=== PATIENT | female | born 1960 | race Caucasian/White ===

== ENCOUNTER → 2019-05-17 10:08 | Outpatient (CLI) | payer BC, SELFPAY ==
[2015-10-14 18:29] VITALS: BMI 25.9
[2019-05-17 10:49] LABS: Vitamin B12 398 pg/mL (211-911); Vitamin D,25 Hydroxy 29.6 ng/mL (29.95-100.01)
[2019-05-17 10:53] LABS: Ferritin 32 ng/mL (8-252); Iron 81 ug/dL (50-170); Iron Binding Capacity,Total 338 ug/dL (250-450)
== END ==
PROVIDERS: Family Provider Student in an Organized Health Care Education/Training Program; PCP Student in an Organized Health Care Education/Training Program; Referring Provider Dermatology; Visit Provider Dermatology
DX: L65.0 Telogen effluvium (principal)
CPT/HCPCS: 82306; 82607; 82728; 83540; 83550

== ENCOUNTER → 2020-04-03 14:23 | Outpatient (CLI) | payer BC, SELFPAY ==
--- NOTE | 2020-04-03 14:30 | VDLE_ITS ---
Reason For Study: pain RIGHT GSV is normal. CFV is compressible, spontaneous, phasic, competent and demonstrates normal augmentation. FV is compressible, spontaneous, phasic, competent and demonstrates normal augmentation. POP V is compressible, spontaneous, phasic, competent and demonstrates normal augmentation. T/P Trunk is compressible. PTV is compressible. RT PerV is compressible. Procedure Exam performed in department. The exam was abbreviated due to the COVID 19 protocol. The exam was diagnostic. A preliminary report was called and/or faxed to Dr. Baez. Interpretation Summary Deep veins of the right lower extremity are patent and compressible segmentally. There is no evidence of right lower extremity deep vein thrombosis. Valvular competence appears intact within the proximal deep venous system on the right . The right great saphenous vein appears patent and compressible segmentally. Ordering Physician: ANEUDY WHITEHEAD Referring Physician: Jj Baez Performed By: Néstor Vela RVT
== END ==
PROVIDERS: PCP Student in an Organized Health Care Education/Training Program
DX: M79.604 Pain in right leg (principal)
CPT/HCPCS: 93971

== ENCOUNTER → 2020-10-07 | Outpatient (CLI) | payer OTHER, SELFPAY ==
[2015-10-14 18:29] VITALS: BMI 25.9
--- NOTE | 2020-10-06 16:00 | FLU_PTH ---
PATIENT: ZIGGY JIMENEZ LOC: [facility] U#:[id number] AGE/SX: 60/F ROOM: RE10/07/[address]: Dr. Pamella Weeks MD : 1960 BED: DIS: 10/07/2020 SPEC #: [id number] RECD: 10/07/20 12:04 STATUS: MARK REMaliha #: [id number] NATALI: 10/06/20 16:[address]: Pamella Weeks DEPT: CYTOLOGY RECD BY: Vane Adrian ENTERED: 10/07/20 12:58 SP TYPE: Fluid OTHR DR: Dr. Jj Baez DO Tissues: A - Thyroid gland, NOS B - Thyroid gland, NOS Procedures: Special Stain Group II Surgery Specimen Level IV Cytospin Fluid HEADER OPERATION: Ultrasound-guided fine needle aspiration left thyroid PRE-OP DIAGNOSIS: Left thyroid nodule TISSUE SUBMITTED: A - Left thyroid slides x6, B - Left thyroid fluid for cytology DIAGNOSIS CYTOLOGY A. Left thyroid nodule, ultrasound-guided FNA (smears): Consistent with benign follicular/colloid nodule. Adequate for evaluation. See comment. B. Left thyroid nodule fluid, ultrasound-guided FNA (cytospin and cell block): Consistent with benign follicular/colloid nodule. SJ:wei 10/08/2020 COMMENT Correlation with clinical, clinical, radiologic findings and appropriate follow up are necessary. CYTOLOGY STUDY Slides are reviewed. CYTOLOGY GROSS A - Received are six smears labeled with the patient's name and designated per the requisition as left thyroid. Submitted for staining. B - Received is 30 ml of dark brown cloudy fluid labeled with the patient's name and and designated per the requisition as left thyroid. Submitted for cytology preparation including cell block. / wei 10/07/20 TC:5 CPT: 29689, 66072, 26628
== END | disposition home or self-care (01) ==
LOC: LABSPEC 12:54
PROVIDERS: PCP Student in an Organized Health Care Education/Training Program; Referring Provider Surgery; Visit Provider Surgery
DX: E04.1 Nontoxic single thyroid nodule (principal)
CPT/HCPCS: 88108; 88305; 88313

== ENCOUNTER 2021-06-15 03:50 | Emergency (ER) | payer OTHER, SELFPAY ==
[2021-06-15 03:51] VITALS: BP 136/81; PULSE 60; RESP 15; TEMP 36.4; O2SAT 99; BMI 23.1
--- NOTE | 2021-06-15 05:26 | RAD_ITS ---
STUDY: X-RAY - ACUTE ABDOMINAL SERIES REASON FOR EXAM: Female, 61 years old patient with abdominal pain TECHNIQUE: Single view of the chest. Supine, and erect view(s) of the abdomen were obtained. COMPARISON: Chest radiograph dated 10/14/2015. FINDINGS: Cardiac monitoring leads are present. The lungs are hyperexpanded. There is mild interstitial thickening present in both lungs. Normal size heart. Normal mediastinum and mariya. Normal visualized pulmonary arteries. There is atherosclerotic tortuosity of the aortic arch and descending thoracic aorta. There is a non-specific bowel gas pattern. There are surgical clips in the pelvis probably secondary to tubal ligation. Normal visualized osseous structures. RAD/Acute Abdomen Inc Chest IMPRESSION: 1. No radiographic evidence of acute intra-abdominal or cardiopulmonary disease disease. 2. COPD. Electronically Signed: Esha Cisneros MD at 6:35 EDT , Service support ,
--- NOTE | 2021-06-15 05:26 | EKG12_ITS ---
Test Reason : ABD PAIN Blood Pressure : / mmHG Vent. Rate : 068 BPM Atrial Rate : 068 BPM P-R Int : 122 ms QRS Dur : 066 ms QT Int : 404 ms P-R-T Axes : 036 004 -02 degrees QTc Int : 429 ms Normal sinus rhythm Nonspecific T wave abnormality Abnormal ECG Confirmed by ERIBERTO HERNADEZ, DIMAS ([id number]), wholesale account manager BEATRIZ MORENO ([id number]) on 06/17/2021 8:21:07 AM Referred By: RENETTA Confirmed By:DIMAS WEI MD
--- NOTE | 2021-06-15 05:28 | EDS_ITS ---
HPI HPI - GI History of Present Illness Chief Complaint: Abd Pain Informant: patient Abdominal Pain/Flank Pain Onset: Today Context: Gradual Onset Timing: Intermittent Quality: - (Squeezing) Location: Epigastric, RUQ and LUQ Worsened by: Nothing Relieved by: Nothing Nausea/Vomiting/Emesis GI Symptom: Negative for Nausea and Vomiting Diarrhea/Melena/Hematochezia GI Symptom: Negative for Diarrhea, Melena and Hematochezia Associated Symptoms Associated Symptoms: Negative for Dysuria and Frequency Narrative Narrative: Patient presents with upper abdominal pain and lower chest pain that began today. Patient states it has been intermittent over the past few hours. Patient states it came on gradually. Patient describes it as a squeezing over her upper abdomen and lower chest. Patient states nothing makes it better and n othing makes it worse. Patient denies any shortness of breath or cough. Patient denies any nausea or vomiting. Patient denies any diarrhea, melena, or hematochezia. Patient denies any urinary complaints. PFSH PFSH Home Medications levothyroxine 25 mcg PO DAILY 10/14/15 [History Last Taken Unknown] Allergy/AdvReac Type Severity Reaction Status Date / Time No Known Allergies Allergy Verified 06/15/21 03:53 Social History Smoking Status: Never smoker ROS ROS ED Constitutional Constitutional ED: Denies chills or fever(s) Eyes Eyes: Denies blurry vision or change in vision ENT ENT ED: Denies rhinorrhea or sore throat Cardiovascular Cardiovascular: Reports chest pain; Denies palpitations Respiratory/Chest Respiratory/Chest: Denies cough or dyspnea Gastrointestinal Gastrointestinal: Reports abdominal pain; Denies nausea or vomiting Genitourinary Genitourinary ED: Denies dysuria or hematuria Musculoskeletal Musculoskeletal: Reports back pain; Denies neck pain Integumentary Denies abscess or rash Neurologic Neurologic: Reports headache(s); Denies weakness Allergic/Immunologic Allergic/Immunologic ED: Denies mouth swelling or urticaria EXAM Physical Exam Const Vital Signs: 06/15/21 03:51 06/15/21 06:50 Temperature 97.6 F L Temperature Source Oral Pulse Rate 60 66 Respiratory Rate 15 13 Blood Pressure 136/81 H 138/74 H Blood Pressure Mean 99 95 Pulse Ox 99 97 Oxygen Delivery Method Room Air Room Air Positive well nourished and well developed General Appearance ED: well developed HEENT Reports moist mucous membranes Neck supple and no JVD Resp normal respiratory effort and clear to auscultation bilaterally Cardio regular rate, regular rhythm and no murmurs GI normal to inspection, nondistended, normoactive bowel sounds Palpation: soft and tender epigastric and RUQ; Negative for guarding or rebound tenderness present Extremity normal to inspection General Extremety ED: Negative for edema or tenderness General Extremity: Negative for edema Neuro oriented x3, CN's II-XII intact bilaterally and no sensory deficits noted Sensorium / Orientation: alert Motor Exam: strength 5/5 throughout Psych mental status grossly normal Skin no rashes or lesions noted MDM MDM MDM Narrative Medical decision making narrative: Patient was given IV fluids. EKG was obtained. On my interpretation, it showed a normal sinus rhythm with a rate of sixty-eight. MN interval, QRS interval, and QTc intervals were all normal. [place] was normal. There are nonspecific ST-T wave changes. CBC was within normal limits. Comprehensive metabolic profile was normal. Lipase was normal. Urinalysis does not show any evidence of urinary tract infection. Acute abdominal x-rays were obtained. There are three views. On my interpretation, there is no acute intra-abdominal process. There is no acute cardiopulmonary process. Radiologist also interpreted the x-rays and agrees. High-sensitivity troponin was obtained and was normal. Patient was advised of her findings. Patient was instructed to follow-up with her primary care physician for further evaluation in 3 to 5 days. Patient was instructed return if worse in any way. Patient understood and was agreeable with the plan. All questions were answered. Lab Data Attestation: I reviewed the patient's lab results. Labs: Laboratory Results - last 24 hr 06/15/21 06/15/21 06/15/21 05:30 05:35 05:35 WBC 8.9 RBC 4.65 Hgb 13.2 Hct 39.9 MCV 85.8 MCH 28.4 MCHC 33.1 RDW Std Deviation 42.1 RDW Coeff of Joana 13.4 Plt Count 139 L MPV 9.2 Immature Gran % (Auto) 0.300 Neut % (Auto) 72.0 H Lymph % (Auto) 18.6 L [place] % (Auto) 7.1 Eos % (Auto) 1.5 Baso % (Auto) 0.5 Absolute Neuts (auto) 6.4 Absolute Lymphs (auto) 1.65 Nucleated RBC % 0 Sodium 139 Potassium 3.5 Chloride 105 Carbon Dioxide 26.0 Anion Gap 8 BUN 11 Creatinine 0.88 Estim Creat Clear Calc 51.75 Est GFR (MDRD) Af Amer 84 Est GFR (MDRD) Non-Af 69 BUN/Creatinine Ratio 12.5 Glucose 92 Calcium 9.6 Total Bilirubin 0.80 AST 43 H ALT 29 Alkaline Phosphatase 78 Troponin I High Sens 5 Total Protein 7.1 Albumin 3.4 Globulin 3.7 Albumin/Globulin Ratio 0.9 Lipase 392 Urine Color Yellow Urine Clarity Clear Urine pH 8.0 Ur Specific [place] 1.015 Urine Protein Negative Urine Glucose (UA) Normal Urine Ketones Negative Urine Occult Blood Negative Urine Nitrite Negative Urine Bilirubin Negative Urine Urobilinogen Normal Ur Leukocyte Esterase 25 H Urine RBC 0 SEEN Urine WBC 0-5 SEEN Ur Squamous Epith Cells 0 SEEN Amorphous Sediment 2+ Urine Bacteria 1+ Urine Mucus 0 SEEN Radiography Diagnostic Testing: Clinical Impression(s) from Imaging Studies Acute Abdomen Series 06/15/21 05:26 IMPRESSION: 1. No radiographic evidence of acute intra-abdominal or cardiopulmonary disease disease. 2. COPD. Electronically Signed: Esha Cisneros MD at 6:35 EDT , Service support , EKG Initial EKG: Attestation: I personally reviewed and interpreted this EKG as follows: Interpretation: Sinus Rhythm (68) and Non-Specific ST Changes Prior EKG tracings: available for review Prior: Unchanged (10/14/2015) Discharge Plan Triage Chief Complaint: Abd Pain ED Provider: Wes Larsen Dx/Rx/DC Orders Clinical Impression: Epigastric abdominal pain Instructions: ED Abdominal Pain Unkn Cause Male... Prescriptions: No Action levothyroxine 25 MCG tablet 25 mcg PO DAILY RF: 0 Primary Care Provider: Jj Baez Referrals: Jj Baez DO [Primary Care Provider] - 3-5 Days Disposition Disposition: Home, Self Care
[2021-06-15 05:37] LABS: Mucous, Urine 0 SEEN /hpf (<or=2+); Red Blood Cells-Urine 0 SEEN /hpf (0-5); Squamous Epithelial Cells - UA 0 SEEN /hpf (5-10)
[2021-06-15 05:38] LABS: Color, Urine Yellow (Yellow); Glucose, Dipstick Normal (Normal); Ketone-Dipstick Negative (Negative); Leukocyte Esterase-Dipstick 25 /ul (Negative); Nitrite-Dipstick Negative (Negative); Occult Blood-Urine Negative /ul (Negative); Protein-Dipstick Negative (Negative); Specific Gravity, Urine 1.015 (1.002-1.030); Urine Bilirubin Dipstick Negative (Negative); Urine Clarity Clear (Clear); Urine Urobilinogen Normal (Normal)
[2021-06-15] MEDS: 0.9% Normal Saline 1,000 ML 1000 ML IV (05:41)
[2021-06-15 05:49] LABS: Absolute Lymphocyte Count 1.65 X10^3/uL (0.83-4.51); Absolute Neutrophil Count 6.4 X10^3/uL (2.0-7.7); Basophil# 0.04 X10^3/uL; Basophil% 0.5 % (0-1); Eosinophil# 0.13 X10^3/uL; Eosinophils% 1.5 % (0-5); Hematocrit 39.9 % (37-47); Hemoglobin 13.2 g/dL (12.0-15.0); Lymphocyte # 1.65 X10^3/ul (0.83-4.51); Lymphocyte % 18.6 % (19-41); Mean Corp Hgb Conc 33.1 g/dL (32-36); Mean Corpuscular Hgb 28.4 pg (27.0-32.0); Mean Corpuscular Volume 85.8 fL (81-99); Mean Platelet Vol. 9.2 fl (6.2-12.0); Monocyte# 0.63 X10^3/uL; Monocyte% 7.1 % (0-10); NRBC Flagged by Analyzer 0 % (0-5); Neutrophil # 6.39 X10^3/uL (2.7-7.7); Platelet Count 139 K/mm3 (150-450); RBC Distribution Width CV 13.4 % (11.6-14.6); RBC Distribution Width SD 42.1 fl (35.1-43.9); Red Blood Count 4.65 M/mm3 (4.2-5.4); White Blood Count 8.9 K/mm3 (4.4-11.0)
[2021-06-15 06:05] LABS: ALB/GLOB Ratio 0.9 RATIO (0.9-2.4); AST(SGOT) 43 U/L (15-37); Alanine Aminotransfer ALT/SGPT 29 U/L (13-56); Albumin, Serum 3.4 g/dL (3.2-5.0); Alkaline Phosphatase 78 U/L (45-117); BUN 11 mg/dL (7-18); BUN/Creat Ratio 12.5 RATIO (10-20); Calcium,Total 9.6 mg/dL (8.5-10.1); Chloride 105 mmol/L (98-107); Creatinine, Serum 0.88 mg/dL (0.55-1.02); EST Glomerular Filtration Rate 69 mL/min (>60); Est Glom Filt Rate - Afr Amer 84 mL/min (>60); Estimated Creatinine Clearance 51.75 ml/min; Globulin 3.7 g/dL (2.2-4.2); Glucose 92 mg/dL (74-106); Lipase 392 U/L (73-393); Potassium 3.5 mmol/L (3.5-5.1); Protein, Total 7.1 g/dL (6.4-8.2); Sodium Level 139 mmol/L (136-145); Troponin-I HS 5 pg/mL (3.0-54.0)
[2021-06-15 06:06] LABS: Anion Gap 8 (5-15)
[2021-06-15 06:50] VITALS: BP 138/74; PULSE 66; RESP 13; O2SAT 97
[2021-06-15 06:57] LABS: Amorphous Sediment 2+; Bacteria 1+ /hpf (None Seen); White Blood Cells 0-5 SEEN /hpf (0-5)
[2021-06-15 08:08] VITALS: PULSE 77; RESP 16; O2SAT 98
== END 2021-06-15 08:09 | disposition home or self-care (01) ==
PROVIDERS: Emergency Provider Emergency Medicine; PCP Student in an Organized Health Care Education/Training Program
DX: R10.13 Epigastric pain (principal); J44.9 Chronic obstructive pulmonary disease, unspecified
CPT/HCPCS: 74022; 80053; 81001; 83690; 84484; 85025; 93005; 96360; 99285; J7030; A4216

== ENCOUNTER 2022-08-18 06:59 | Emergency (ER) | payer BC, SELFPAY ==
[2022-08-18] VITALS (8 sets, daily range): BP systolic 93–133; BP diastolic 70–79; PULSE 57–72; RESP 13–16; TEMP 35.8; O2SAT 96–100; BMI 20.7
--- NOTE | 2022-08-18 07:07 | EKG12_ITS ---
Test Reason : CHEST PAIN Blood Pressure : / mmHG Vent. Rate : 061 BPM Atrial Rate : 061 BPM P-R Int : 114 ms QRS Dur : 068 ms QT Int : 434 ms P-R-T Axes : 032 000 001 degrees QTc Int : 436 ms Normal sinus rhythm Septal infarct , age undetermined Abnormal ECG Confirmed by DENNIS HERNADEZ, MIRTA ([id number]), primer expeditor and drier BEATRIZ MORENO ([id number]) on 08/20/2022 6:24:25 AM Referred By: RENETTA Confirmed By:RANDELL COLLINS MD
--- NOTE | 2022-08-18 07:17 | EDS_ITS ---
HPI History of Present Illness Chief Complaint: Chest Pain Informant: patient and EMS Onset/Context/Timing Onset: Today (JPTA) Timing: Intermittent (once) and Lasts (30-40 min) Quality: Positive for Tightness Location: Substernal (and jaw) Current Severity: Gone Maximum Severity: Severe Worsened By: Nothing Relieved By: Nothing (did take ASA 162mg prior to end of episode) Associated Symptoms: Positive for Diaphoresis, Dyspnea and Lightheadedness; Negative for Nausea, Vomiting, Cough, Fever, Acid Reflux or Palpitations Narrative Narrative: About 1.5 hours prior to evaluation here in the department, patient was already awake at around 5:30 AM and had quick onset of tightness in her chest followed by tightness in her jaw, sweating, lightheaded, she felt short of breath she thinks because she was feeling very anxious about feeling so poorly although the dyspnea and lightheadedness were very short-lived, she was very concerned that she might be having a heart attack and called EMS. She took 2 baby aspirin, EMS arrived and her discomfort/symptoms were all resolved and they gave her another 162 mg aspirin and transported her here. She is never had this before. She has no known history of heart disease, she had a stress test 10 or 20 years ago for reasons that she cannot remember that was unremarkable, and she has a routine stress test scheduled in about 3-4 months from now with her PCP. CVD Risk Factors: Positive for Hypertension; Negative for Diabetes, Hypercholesterolemia, Family History 1' </=55 or Smoking PE Risk Factors: Negative for Recent Travel/Surgery, Recent Immobilization, Prior DVT or PE, Cancer or OCP + Smoking + >/=35 PFSH [facility] Medical History (Updated 08/18/22 @ 12:[address] Matt Rider MD) Essential hypertension History of cholelithiasis Hypothyroidism Home Medications levothyroxine 25 mcg tablet 25 mcg PO DAILY 10/14/15 [History Last Taken Unknown] Allergy/AdvReac Type Severity Reaction Status Date / Time No Known Allergies Allergy Verified 08/18/22 07:00 Social History Smoking Status: Never smoker ROS ROS ED Constitutional Constitutional ED: Reports sweats; Denies chills or fever(s) Eyes Eyes: Denies change in vision or diplopia ENT ENT ED: Denies rhinorrhea or sore throat Cardiovascular Cardiovascular: Reports chest pain, lightheadedness and radiating jaw, neck or arm pain; Denies palpitations or racing heartbeat Respiratory/Chest Respiratory/Chest: Reports dyspnea; Denies cough Gastrointestinal Gastrointestinal: Denies abdominal pain, diarrhea, nausea or vomiting Genitourinary Genitourinary ED: Denies dysuria or hematuria Musculoskeletal Musculoskeletal: Denies back pain or neck pain Integumentary Denies abscess or rash Neurologic Neurologic: Denies headache(s), paresthesias or weakness Psychiatric Psychiatric: Denies anxiety or suicidal thoughts EXAM Physical Exam Const Vital Signs: 08/18/22 07:00 08/18/22 07:04 08/18/22 07:44 Temperature 96.5 F L Temperature Source Temporal Pulse Rate 61 Respiratory Rate 15 Respiratory Pattern Normal Blood Pressure 133/78 H Blood Pressure Mean 96 Pulse Ox 98 Oxygen Delivery Method Room Air Room Air 08/18/22 08:52 08/18/22 08:00 08/18/22 08:45 Temperature Temperature Source Pulse Rate 57 L 60 57 L Respiratory Rate 16 16 Respiratory Pattern Blood Pressure 110/73 117/79 110/73 Blood Pressure Mean 91 85 Pulse Ox 99 98 Oxygen Delivery Method Room Air Room Air 08/18/22 09:12 08/18/22 09:27 08/18/22 11:00 Temperature Temperature Source Pulse Rate 66 59 L 72 Respiratory Rate 13 16 Respiratory Pattern Blood Pressure 98/73 107/72 101/70 Blood Pressure Mean 81 80 Pulse Ox 100 97 Oxygen Delivery Method Room Air Room Air Positive well nourished and well developed Constitutional Narrative: Well-appearring, conversive in full sentences General Appearance ED: well developed and NAD HEENT Reports moist mucous membranes normocephalic and atraumatic Eyes PERRL and EOMs intact bilaterally Neck full ROM and supple Resp normal respiratory effort and clear to auscultation bilaterally Cardio regular rate, regular rhythm and no murmurs Rate: Negative for tachycardic GI non-tender and non-distended Auscultation: normoactive bowel sounds Palpation: soft Back/Spine no CVA tenderness General Back: other FROM Extremity normal to inspection General Extremety ED: Negative for edema, pulses abnormal or tenderness General Extremity: Negative for edema or pulses abnormal Neuro oriented x3, CN's II-XII intact bilaterally and no sensory deficits noted Sensorium / Orientation: awake and alert Motor Exam: strength 5/5 throughout Skin no rashes or lesions noted and no wounds Heart Score History: Highly Suspicious ECG: Nonspecific Repolarization Age: >45 - <65 years Risk Factors: 1 or 2 Risk Factors Troponin: </= Normal Limit Score: 5 MDM MDM MDM Narrative Medical decision making narrative: Patient asymptomatic and has a normal EKG, her work-up is negative except for a slightly low potassium which could be to acute anxiety episode associated with the symptoms. No recent GI symptoms to suggest GI or renal losses. Her initial troponin is 7. While waiting for the second 1 she had a repeat episode of chest tightness and her EKG was repeated. It is unchanged. Her second troponin came back at 6. I discussed all this with Dr. De La Cruz with cardiology, he agrees with her heart score of 5 but negative troponin that this is not a euhrh-epj-yoriv case, and would support either admitting her for stress test or repeating her enzymes and if negative or going down, sending her home to continue following up with an outpatient stress. Therefore we did the third troponin, it returned at a level of 6 as well. The patient is feeling well. She is comfortable going home with the aforementioned plan. Lab Data Attestation: I reviewed the patient's lab results. Labs: Laboratory Results - last 24 hr 08/18/22 08/18/22 08/18/22 07:30 07:30 09:42 WBC 5.8 RBC 4.87 Hgb 13.7 Hct 42.8 MCV 87.9 MCH 28.1 MCHC 32.0 RDW Std Deviation 43.8 RDW Coeff of Joana 13.6 Plt Count 147 L MPV 9.6 Immature Gran % (Auto) 0.200 Neut % (Auto) 36.7 L Lymph % (Auto) 51.4 H [place] % (Auto) 7.2 Eos % (Auto) 3.6 Baso % (Auto) 0.9 Absolute Neuts (auto) 2.2 Absolute Lymphs (auto) 3.00 Nucleated RBC % 0 Sodium 141 Potassium 3.3 L Chloride 106 Carbon Dioxide 28.0 Anion Gap 7 BUN 14 Creatinine 0.90 Estim Creat Clear Calc 47.65 Est GFR (MDRD) Af Amer 81 Est GFR (MDRD) Non-Af 67 BUN/Creatinine Ratio 15.6 Glucose 100 Calcium 9.7 Troponin I High Sens 7 6 08/18/22 11:35 WBC RBC Hgb Hct MCV MCH MCHC RDW Std Deviation RDW Coeff of Joana Plt Count MPV Immature Gran % (Auto) Neut % (Auto) Lymph % (Auto) [place] % (Auto) Eos % (Auto) Baso % (Auto) Absolute Neuts (auto) Absolute Lymphs (auto) Nucleated RBC % Sodium Potassium Chloride Carbon Dioxide Anion Gap BUN Creatinine Estim Creat Clear Calc Est GFR (MDRD) Af Amer Est GFR (MDRD) Non-Af BUN/Creatinine Ratio Glucose Calcium Troponin I High Sens 6 Radiography Chest X-Ray - ED: 2 View, Read by ED Physician, Normal and No Acute Disease Diagnostic Testing: Clinical Impression(s) from Imaging Studies Chest X-Ray 08/18/22 07:49 IMPRESSION: Hyperinflation suggesting emphysema. Electronically Signed: Teddy Monterroso MD at 8:07 EST Reading Location ID and State: [address] [place] [id number] Tel , Service support , Rhythm Strip Rhythm Strip: Sinus Rhythm Rate: 60 Ectopy: None EKG Initial EKG: Attestation: I personally reviewed and interpreted this EKG as follows: Interpretation: Sinus Rhythm, No Acute Injury Pattern and Inverted T-Waves (inf and high lat) Comments: Q waves V1-2 Prior EKG tracings: available for review Prior: Unchanged Follow-up EKG: Attestation: I personally reviewed and interpreted this EKG as follows: Interpretation: Sinus Rhythm and No Acute Injury Pattern Prior: Unchanged Discharge Plan Triage Chief Complaint: Chest Pain ED Provider: Matt Rider Dx/Rx/DC Orders Clinical Impression: Chest pain Instructions: ED Chest Pain, Uncertain Cause Prescriptions: No Action levothyroxine 25 MCG tablet 25 mcg PO DAILY Primary Care Provider: Jj Baez Referrals: Jj Baez, [Primary Care Provider] - As soon as possible (Offer follow- up and/or to see if you can have your stress test moved up sooner) Disposition Disposition: Home, Self Care
[2022-08-18 07:45] LABS: Absolute Neutrophil Count 2.2 X10^3/uL (2.0-7.7); Basophil# 0.05 X10^3/uL; Basophil% 0.9 % (0-1); Eosinophil# 0.21 X10^3/uL; Eosinophils% 3.6 % (0-5); Hematocrit 42.8 % (37-47); Hemoglobin 13.7 g/dL (12.0-15.0); Lymphocyte % 51.4 % (19-41); Mean Corpuscular Hgb 28.1 pg (27.0-32.0); Mean Corpuscular Volume 87.9 fL (81-99); Mean Platelet Vol. 9.6 fl (6.2-12.0); Monocyte# 0.42 X10^3/uL; Monocyte% 7.2 % (0-10); NRBC Flagged by Analyzer 0 % (0-5); Neutrophil # 2.15 X10^3/uL (2.7-7.7); Neutrophil % 36.7 % (47-70); Platelet Count 147 K/mm3 (150-450); RBC Distribution Width CV 13.6 % (11.6-14.6); RBC Distribution Width SD 43.8 fl (35.1-43.9); Red Blood Count 4.87 M/mm3 (4.2-5.4); White Blood Count 5.8 K/mm3 (4.4-11.0)
--- NOTE | 2022-08-18 07:49 | RAD_ITS ---
EXAM: XR CHEST, 1 VIEW CLINICAL INDICATION: chest pain TECHNIQUE: Frontal view of the chest. This report was created using [employer] report generation technology. COMPARISON: XR Chest dated 06/15/2021 FINDINGS: LUNGS AND PLEURAL SPACES: Hyperinflation suggesting emphysema. No pneumothorax. No effusion. HEART: Normal heart size. MEDIASTINUM: No mediastinal or hilar mass. BONES/JOINTS: No acute abnormality. SOFT TISSUES: Normal. RAD/Chest 1 View (Portable) IMPRESSION: Hyperinflation suggesting emphysema. Electronically Signed: Teddy Monterroso MD at 8:07 EST ,
[2022-08-18 07:56] LABS: Anion Gap 7 (5-15); BUN 14 mg/dL (7-18); BUN/Creat Ratio 15.6 RATIO (10-20); Calcium,Total 9.7 mg/dL (8.5-10.1); Chloride 106 mmol/L (98-107); EST Glomerular Filtration Rate 67 mL/min (>60); Est Glom Filt Rate - Afr Amer 81 mL/min (>60); Estimated Creatinine Clearance 47.65 ml/min; Glucose 100 mg/dL (74-106); Potassium 3.3 mmol/L (3.5-5.1); Sodium Level 141 mmol/L (136-145); Troponin-I HS (w/2H Reflex) 7 pg/mL (3.0-54.0)
--- NOTE | 2022-08-18 08:39 | EKG12_ITS ---
Test Reason : CHEST PAIN REPEAT Blood Pressure : / mmHG Vent. Rate : 056 BPM Atrial Rate : 056 BPM P-R Int : 116 ms QRS Dur : 066 ms QT Int : 414 ms P-R-T Axes : 041 -06 -09 degrees QTc Int : 399 ms Sinus bradycardia Septal infarct , age undetermined Abnormal ECG Confirmed by DENNIS HERNADEZ, MIRTA ([id number]), legal editor BEATRIZ MORENO ([id number]) on 08/20/2022 6:24:39 AM Referred By: SAMUEL Confirmed By:RANDELL COLLINS MD
[2022-08-18] MEDS: Nitroglycerin SL (ED/IMG/CATH) 0.4 MG TABLET SL (08:52)
[2022-08-18] MEDS: Nitroglycerin Oint 1 INCH PACKET TD (09:27)
[2022-08-18 09:35] LABS: Reflex Troponin-HS? (from REC) Y
[2022-08-18 10:08] LABS: Troponin-I HS 6 pg/mL (3.0-54.0)
[2022-08-18 11:58] LABS: Troponin-I HS 6 pg/mL (3.0-54.0)
== END 2022-08-18 12:29 | disposition home or self-care (01) ==
PROVIDERS: Emergency Provider Emergency Medicine; PCP Student in an Organized Health Care Education/Training Program; Visit Provider Emergency Medicine
DX: R07.9 Chest pain, unspecified (principal); I10 Essential (primary) hypertension; R06.00 Dyspnea, unspecified
CPT/HCPCS: 36415; 71045; 80048; 84484; 85025; 93005; 99285; A4216

== ENCOUNTER 2022-10-29 11:01 | Emergency (ER) | payer BC, SELFPAY ==
[2022-10-29 11:02] VITALS: BP 140/89; PULSE 70; RESP 14; TEMP 36.1; O2SAT 100; BMI 21.2
--- NOTE | 2022-10-29 11:28 | VDLE_ITS ---
Reason For Study: LEG SWELLING RIGHT LEFT GSV is normal. GSV is normal. CFV is compressible, spontaneous, phasic, CFV is compressible, spontaneous, phasic, competent and demonstrates normal competent, and demonstrates normal augmentation. augmentation. FV is compressible, spontaneous, phasic, FV is compressible, spontaneous, phasic, competent and demonstrates normal competent and demonstrates normal augmentation. augmentation. POP V is compressible, spontaneous, phasic, POP V is compressible, spontaneous, phasic, competent and demonstrates normal competent and demonstrates normal augmentation. augmentation. T/P Trunk is compressible. T/P Trunk is compressible. PTV is compressible. PTV is compressible. RT PerV is compressible. LT PerV is compressible. Procedure This is a venous duplex using B-mode, color flow and spectral Doppler. Exam performed portable in ED. The exam was diagnostic. A preliminary report was called and/or faxed to ED YOSELIN Borja. VL/Venous Duplex US - Td Extrem Interpretation Summary No evidence for acute deep venous thrombosis bilateral lower extremities with p atent and compressible bilateral great saphenous veins. Ordering Physician: Azeb Grider Referring Physician: Jj Baez Performed By: Bairon Bullard RVT
--- NOTE | 2022-10-29 11:28 | EKG12_ITS ---
Test Reason : LEG PAIN Blood Pressure : / mmHG Vent. Rate : 062 BPM Atrial Rate : 062 BPM P-R Int : 116 ms QRS Dur : 064 ms QT Int : 410 ms P-R-T Axes : 075 002 070 degrees QTc Int : 416 ms Likely Normal sinus rhythm -Significant baseline artifact Septal infarct , age undetermined Abnormal ECG Confirmed by DENNIS HERNADEZ, MIRTA ([id number]), brands editor BEATRIZ MORENO ([id number]) on 11/01/2022 12:24:25 P M Referred By: TOMÁS Confirmed By:RANDELL COLLINS MD
--- NOTE | 2022-10-29 11:29 | EDS_ITS ---
HPI History of Present Illness Chief Complaint: Lower Extremity Injury Detail of Chief Complaint: Bilateral leg swelling Informant: patient Onset/Context/Timing Onset: Days Context: Gradual Onset Current Severity: Mild Maximum Severity: Moderate Narrative Narrative: Patient presents secondary to swelling in both legs for the past 2 weeks. Today she noted pain in her left leg. Due to concern for blood clot she presents to the emergency room. Patient is been having intermittent chest pain for the past couple of months. She was seen in the emergency room in August with no elevation in her troponins. She recently underwent an echocardiogram where she was found to have mitral valve prolapse. She had a CT scan of her chest earlier this week without contrast that was largely unremarkable. [facility] Medical History Essential hypertension History of cholelithiasis Hypothyroidism MVP (mitral valve prolapse) Home Medications levothyroxine 25 mcg tablet 25 mcg PO DAILY 10/14/15 [History Last Taken Unknown] Allergy/AdvReac Type Severity Reaction Status Date / Time No Known Allergies Allergy Verified 10/29/22 11:02 Social History Smoking Status: Never smoker ROS ROS ED Constitutional Constitutional ED: Denies chills or fever(s) Eyes Eyes: Denies change in vision or discharge from eye(s) ENT ENT ED: Denies discharge from eye(s), rhinorrhea or sore throat Cardiovascular Cardiovascular: Reports chest pain; Denies palpitations Respiratory/Chest Respiratory/Chest: Reports dyspnea; Denies cough Gastrointestinal Gastrointestinal: Denies abdominal pain, diarrhea, nausea or vomiting Genitourinary Genitourinary ED: Denies dysuria Musculoskeletal Musculoskeletal: Reports extremity pain; Denies back pain Integumentary Denies Abrasions or rash Neurologic Neurologic: Denies headache(s) or weakness Allergic/Immunologic Allergic/Immunologic ED: Denies lip swelling or urticaria EXAM Physical Exam Const Vital Signs: 10/29/22 11:02 Temperature 97 F L Temperature Source Temporal Pulse Rate 70 Respiratory Rate 14 Blood Pressure 140/89 H Blood Pressure Mean 106 Pulse Ox 100 Oxygen Delivery Method Room Air Positive well nourished and well developed General Appearance ED: well developed HEENT Reports normocephalic and head/scalp atraumatic Eyes PERRL and EOMs intact bilaterally Neck supple Chest Wall inspection of chest normal and palpation of chest normal Resp normal respiratory effort and clear to auscultation bilaterally Cardio regular rate and regular rhythm GI normal to inspection, nondistended, normoactive bowel sounds Palpation: soft Extremity Extremity Narrative: 1-2+ bilateral lower extremity edema, symmetric. Mild area of tenderness along the proximal medial left leg. No erythema or overlying skin changes. Strong distal pulses are noted. Neuro oriented x3 and no sensory deficits noted Sensorium / Orientation: alert Motor Exam: strength 5/5 throughout Psych mental status grossly normal Skin no rashes or lesions noted MDM MDM MDM Narrative Medical decision making narrative: Patient placed on pvc monitor. Labwork obtained to evaluate for leukocytosis, anemia, and electrolyte derangement. Troponin obtained to evaluate for cardiac ischemia. D-dimer obtained to evaluate for possible blood clot. I reviewed the patient's noncontrast chest CT from 3 days ago. I do not feel she needs a repeat chest x-ray at this time. Venous ultrasound of the lower extremities obtained. Lab Data Attestation: I reviewed the patient's lab results. Labs: Laboratory Results - last 24 hr 10/29/22 10/29/22 10/29/22 12:05 12:05 12:05 WBC 5.6 RBC 4.99 Hgb 13.9 Hct 43.2 MCV 86.6 MCH 27.9 MCHC 32.2 RDW Std Deviation 42.2 RDW Coeff of Joana 13.3 Plt Count 162 MPV 9.5 Immature Gran % (Auto) 0.200 Neut % (Auto) 58.3 Lymph % (Auto) 32.0 [place] % (Auto) 6.5 Eos % (Auto) 2.5 Baso % (Auto) 0.5 Absolute Neuts (auto) 3.2 Absolute Lymphs (auto) 1.78 Nucleated RBC % 0 D-Dimer Quant (PE/DVT) 0.41 Sodium 139 Potassium 3.8 Chloride 101 Carbon Dioxide 30.0 Anion Gap 8 BUN 20 H Creatinine 0.86 Estim Creat Clear Calc 52.27 Est GFR (MDRD) Af Amer 85 Est GFR (MDRD) Non-Af 70 BUN/Creatinine Ratio 23.1 H Glucose 103 Calcium 9.4 Troponin I High Sens 4 Radiography Diagnostic Testing: Clinical Impression(s) from Imaging Studies Venous Doppler Study 10/29/22 11:28 Interpretation Summary No evidence for acute deep venous thrombosis bilateral lower extremities with patent and compressible bilateral great saphenous veins. Ordering Physician: Azeb Grider Referring Physician: Jj Baez Performed By: Bairon Bullard RVT Initial EKG: Attestation: I personally reviewed and interpreted this EKG as follows: Interpretation: Sinus Rhythm (Sinus at 62 with baseline artifact. No acute ST change.) Differential Diagnosis Chest pain/SOB: pulmonary embolism Reason(s) PE less likely: Positive for D- Dimer negative, not tachycardic and not hypoxic and ACS ACS: Positive for no evidence of ACS based on cardiac biomarkers and EKG without ischemia Treatment and Re-Evaluation :: Venous ultrasound of the lower extremities revealed no evidence of DVT. EKG reveals no acute ischemia. Lab work unremarkable including normal D-dimer and troponin. Patient reassured with these results. We discussed appropriate leg elevation to help control her swelling. She already has follow-up scheduled with her doctor. Discharge Plan Triage Chief Complaint: Lower Extremity Injury ED Provider: Azeb Grider Dx/Rx/DC Orders Clinical Impression: Edema, Chest pain Instructions: ED Chest Pain, Noncardiac, ED Peripheral Edema, Bilateral Prescriptions: No Action levothyroxine 25 MCG tablet 25 mcg PO DAILY Primary Care Provider: Jj Baez Referrals: Jj Baez DO [Primary Care Provider] - 1-2 Weeks Disposition Disposition: Home, Self Care
[2022-10-29 12:11] LABS: Absolute Lymphocyte Count 1.78 X10^3/uL (0.83-4.51); Absolute Neutrophil Count 3.2 X10^3/uL (2.0-7.7); Basophil# 0.03 X10^3/uL; Basophil% 0.5 % (0-1); Eosinophil# 0.14 X10^3/uL; Eosinophils% 2.5 % (0-5); Hematocrit 43.2 % (37-47); Hemoglobin 13.9 g/dL (12.0-15.0); Lymphocyte # 1.78 X10^3/ul (0.83-4.51); Mean Corp Hgb Conc 32.2 g/dL (32-36); Mean Corpuscular Hgb 27.9 pg (27.0-32.0); Mean Corpuscular Volume 86.6 fL (81-99); Mean Platelet Vol. 9.5 fl (6.2-12.0); Monocyte# 0.36 X10^3/uL; Monocyte% 6.5 % (0-10); NRBC Flagged by Analyzer 0 % (0-5); Neutrophil # 3.24 X10^3/uL (2.7-7.7); Neutrophil % 58.3 % (47-70); Platelet Count 162 K/mm3 (150-450); RBC Distribution Width CV 13.3 % (11.6-14.6); RBC Distribution Width SD 42.2 fl (35.1-43.9); Red Blood Count 4.99 M/mm3 (4.2-5.4); White Blood Count 5.6 K/mm3 (4.4-11.0)
[2022-10-29 12:22] LABS: D-Dimer Quantitative (DVT/PE) 0.41 FEU/ug/m (0.27-0.49)
[2022-10-29 12:30] LABS: Anion Gap 8 (5-15); BUN 20 mg/dL (7-18); BUN/Creat Ratio 23.1 RATIO (10-20); Calcium,Total 9.4 mg/dL (8.5-10.1); Chloride 101 mmol/L (98-107); Creatinine, Serum 0.86 mg/dL (0.55-1.02); EST Glomerular Filtration Rate 70 mL/min (>60); Est Glom Filt Rate - Afr Amer 85 mL/min (>60); Estimated Creatinine Clearance 52.27 ml/min; Glucose 103 mg/dL (74-106); Potassium 3.8 mmol/L (3.5-5.1); Sodium Level 139 mmol/L (136-145); Troponin-I HS 4 pg/mL (3.0-54.0)
[2022-10-29 12:54] VITALS: PULSE 78; RESP 16; O2SAT 97
== END 2022-10-29 12:55 | disposition home or self-care (01) ==
PROVIDERS: Emergency Provider Emergency Medicine; PCP Student in an Organized Health Care Education/Training Program; Visit Provider Emergency Medicine
DX: R60.9 Edema, unspecified (principal); I10 Essential (primary) hypertension; R07.9 Chest pain, unspecified; E03.9 Hypothyroidism, unspecified; Z79.899 Other long term (current) drug therapy
CPT/HCPCS: 80048; 84484; 85025; 85379; 93005; 93970; 99284

== ENCOUNTER → 2023-10-11 | Outpatient (CLI) | payer BC, SELFPAY ==
--- NOTE | 2023-10-11 15:37 | MRI_ITS ---
EXAM: MR HEAD WITHOUT AND WITH INTRAVENOUS CONTRAST, INTERNAL AUDITORY CANAL PROTOCOL CLINICAL INDICATION: L TINNITUS, L HEARING LOSS -- ATTN IAC TECHNIQUE: Multiplanar and multisequence MR images of the internal auditory canal were obtained without and with intravenous contrast. CONTRAST: IV 10ml Clariscan COMPARISON: No relevant prior studies available. FINDINGS: CRANIAL NERVES: Normal. No mass. No abnormal enhancement. COCHLEA AND SEMICIRCULAR CANALS: Normal. CEREBELLOPONTINE ANGLES: Normal. No mass. BRAIN AND EXTRA-AXIAL SPACES: Enhancement of a small cluster of vessels within the right temporal lobe suggestive of venous angioma. No intra- or extra-axial hemorrhage. No intracranial mass or mass effect. There is preservation of the jonas/white matter interface. Posterior fossa structures are unremarkable. Ventricles are appropriate for age. No hydrocephalus. Basal cisterns are patent. BONES/JOINTS: Normal. No discrete lytic or blastic abnormalities. SINUSES: Unremarkable as visualized. Clear. MASTOID AIR CELLS: Unremarkable as visualized. Clear. ORBITS: Unremarkable as visualized. Both globes, extraocular muscles, optic nerves and retrobulbar fat appear unremarkable. MRI/Brain W/WO Contrast IMPRESSION: No acute intracranial abnormality. Normal internal auditory canals and temporal bone structures. Electronically Signed: Teddy Monterroso MD at 13:52 EST ,
[2023-10-11 16:05] LABS: CREATININE FINGERSTICK < 1.0 mg/dL (0.55-1.02); EGFR FINGERSTICK > 60.0000 mL/min (>60)
--- OUTSIDE RECORDS SUMMARY | 2023-10-11 23:35 | XMS RPT_ITS | CCD ---
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 Name Role Phone Jj Cortes DO Primary Care Provider Unknown, Referring Provider Unavailable Unav ailable Unavailable Unavailable Angela HERNADEZ, Zenia Francis Unavailable [phone] Zen Lei MD Unavailable Hot Walker, System Unavailable Unavailable Rebecca Lopez CMA Unavailable Unavailable Anahiolga lidiaJeannette santana Unavailable Zaina Austin Unavailable Unavailable Unavailable Unavailable Jj Cortes DO Primary Care Provider SOPHIA JJ L Referring Unavailable CORTES, JJ L Primary Care Unavailable CORTES, JJ L Primary Care Unavailable DAKOTAH, VALE Referring Unavailable CORTES, JJ L Primary Care Unavailable DAKOTAH, VALE Referring Unavailable CORTES, JJ L Primary Care Unavailable DAKOTAH, VALE Attending Unavailable CORTES, JJ L Referring Unavailable CORTES, JJ L Primary Care Unavailable CORTES, JJ L Primary Care Unavailable CORTES, JJ L Attending Unavailable ISMAEL PRICE Attending Unavailable CORTES, JJ Alida Primary Care Unavailable CORTES, JJ L Primary Care Unavailable CORTES, JJ L Referring Unavailable CORTES, JJ L Primary Care Unavailable CORTES, JJ L Referring Unavailable CORTES, JJ L Primary Care Unavailable CORTES, JJ L Attending Unavailable NARGIS JIMENEZ Referring Unavailable CORTES, JJ L Primary Care Unavailable ISMAEL PRICE Attending Unavailable CORTES, JJ L Primary Care Unavailable DAKOTAH, VALE Referring Unavailable CORTES, JJ L Primary Care Unavailable CORTES, JJ L Referring Unavailable Medications Current Medications Medication Drug Class(es) Dates Sig (Normalized) Sig (Original) amoxicillin 875 mg oral tablet (1 source) Penicillin-class Antibacterial Start: 07-23-2022 End: 08-02-2022 take 1 tablet by mouth twice daily amoxicillin (AMOXIL) 875 mg tablet Indications: Cervical lymphadenitis Take 1 tablet by mouth twice daily for 10 days. 20 tablet 0 07/23/2022 08/02/2022 Active Completed/Discontinued Medications Medication Drug Class(es) Dates Sig (Normalized) Sig (Original) acetaminophen 500 mg / HYDROcodone bitartrate 5 mg oral tablet (1 source) Opioid Agonist Start: 09-09-2009 End: 08-31-2010 take 0.5-1 tablets by mouth three times daily as needed VICODIN, 5-500MG (Oral Tablet) 1/2-1 Tablet three times daily, as needed for 0 days Quantity: 30 {Tablet} Refills: 0 Ordered: 31-Aug-2010 CARLOTA Dumont LPN Start : 09-Sep-2009 End : 31-Aug-2010 Inactive Comments: Medication taken as needed. Problems Active Problems Problem Classification Problem Date Documented Da te Episodic/Chronic Adjustment disorders (3 sources) Stress; Translations: [Reaction to severe stress, unspecified] Onset: 10-26-2022 Chronic Disorders of lipid metabolism (20 sources) Hypercholesterol emia; Translations: [Pure hypercholesterol emia, unspecified] Onset: 09-14-2013 09-14-2013 Chronic Past or Other Problems Problem Classification Problem Date Documented Da te Episodic/Chronic Cardiac dysrhythmias (20 sources) Palpitations; Translations: [Palpitations] Onset: 07-26-2022 07-11-2013 Episodic Conditions associated with dizziness or vertigo (20 sources) Vertigo; Translations: [Lightheadedness ] Onset: 07-26-2022 Resolved: 02-25-2009 02-25-2009 Episodic Results Test Name Value Interpretation Reference Range Facil it Vital Signs Date Time Vital Sign Value Performing Clinician Facility 07-04-2023 15:37-0500 Body weight 50.98 kg Ismael Price MD Work Phone: [facility] 07-04-2023 15:37-0500 Diastolic blood pressure 74 mm[Hg] Ismael Price MD Work Phone: [facility] 07-04-2023 15:37-0500 Heart rate 56 /min Ismael Price MD Work Phone: [facility] 07-04-2023 15:37-0500 SaO2% (BldA) [Mass fraction] 99 % Ismael Price MD Work Phone: [facility] 07-04-2023 15:37-0500 Systolic blood pressure 114 mm[Hg] Ismael Price MD Work Phone: [facility] 03-02-2023 12:35-0400 Body temperature 97 [degF] Jj Cortes DO Work Phone: [facility] 03-02-2023 12:35-0400 Body weight 51.26 kg Jj Cortes DO Work Phone: [facility] 03-02-2023 12:35-0400 Diastolic blood pressure 72 mm[Hg] Jj Cortes DO Work Phone: [facility] 03-02-2023 12:35-0400 Heart rate 64 /min Jj Cortes DO Work Phone: [facility] 03-02-2023 12:35-0400 Respiratory rate 16 /min Jj Cortes DO Work Phone: [facility] 03-02-2023 12:35-0400 Systolic blood pressure 100 mm[Hg] Jj Cortes DO Work Phone: [facility] 11-08-2022 14:09-0400 Body weight 52.62 kg Ismael Price MD Work Phone: [facility] 11-08-2022 14:09-0400 Diastolic blood pressure 70 mm[Hg] Ismael Price MD Work Phone: [facility] 11-08-2022 14:09-0400 Heart rate 82 /min Ismael Price MD Work Phone: [facility] 11-08-2022 14:09-0400 SaO2% (BldA) [Mass fraction] 98 % Ismael Price MD Work Phone: [facility] 11-08-2022 14:09-0400 Systolic blood pressure 100 mm[Hg] Ismael Price MD Work Phone: [facility] 10-08-2022 13:08-0500 Body weight 51.8 kg Vale Dakotah SPICE MIXER.GLASS CARRIER Work Phone: [facility] 10-08-2022 13:08-0500 Diastolic blood pressure 62 mm[Hg] Vale Dakotah SPICE MIXER.GLASS CARRIER Work Phone: [facility] 10-08-2022 13:08-0500 Heart rate 66 /min Vale Dakotah SPICE MIXER.GLASS CARRIER Work Phone: [facility] 10-08-2022 13:08-0500 Respiratory rate 16 /min Vale Dakotah SPICE MIXER.GLASS CARRIER Work Phone: [facility] 10-08-2022 13:08-0500 SaO2% (BldA) [Mass fraction] 97 % Vale Dakotah SPICE MIXER.GLASS CARRIER Work Phone: [facility] 10-08-2022 13:08-0500 Systolic blood pressure 110 mm[Hg] Vale Dakotah SPICE MIXER.GLASS CARRIER Work Phone: [facility] 07-23-2022 13:31-0500 Body height 157 cm Jj Cortes DO Work Phone: [facility] 07-23-2022 13:31-0500 Body temperature 98.4 [degF] Jj Cortes DO Work Phone: [facility] 07-23-2022 13:31-0500 Body weight 51.71 kg Jj Cortes DO Work Phone: [facility] 07-23-2022 13:31-0500 Diastolic blood pressure 70 mm[Hg] Jj Cortes DO Work Phone: [facility] 07-23-2022 13:31-0500 Heart rate 60 /min Jj Cortes DO Work Phone: [facility] 07-23-2022 13:31-0500 Respiratory rate 16 /min Jj Cortes DO Work Phone: [facility] 07-23-2022 13:31-0500 Systolic blood pressure 118 mm[Hg] Jj Cortes DO Work Phone: [facility] 12-21-2021 13:00-0400 Body weight 52.62 kg Vale Dakotah SPICE MIXER.GLASS CARRIER Work Phone: [facility] 12-21-2021 13:00-0400 Diastolic blood pressure 68 mm[Hg] Vale Dakotah SPICE MIXER.GLASS CARRIER Work Phone: [facility] 12-21-2021 13:00-0400 Heart rate 73 /min Vale Dakotah SPICE MIXER.GLASS CARRIER Work Phone: [facility] 12-21-2021 13:00-0400 Respiratory rate 16 /min Vale Dakotah SPICE MIXER.GLASS CARRIER Work Phone: [facility] 12-21-2021 13:00-0400 SaO2% (BldA) [Mass fraction] 99 % Vale Dakotah SPICE MIXER.GLASS CARRIER Work Phone: [facility] 12-21-2021 13:00-0400 Systolic blood pressure 100 mm[Hg] Vale Dakotah SPICE MIXER.GLASS CARRIER Work Phone: [facility] 07-11-2013 13:00-0500 Body height 160.02 cm Rebecca Lopez [facility] Comprehensiv e Internal [facility]; [facility] Work Phone: 07-11-2013 13:00-0500 Body mass index (BMI) [Ratio] 26.22 kg/m2 Rebecca Lopez [facility]; [facility] Work Phone: 07-11-2013 13:00-0500 Body surface area Derived from formula 1.7 m2 Rebecca Lopez [facility]; [facility] Work Phone: 07-11-2013 13:00-0500 Body weight 67.13 kg Rebecca Lopez [facility] Comprehensiv e Internal Medicine; [facility] Work Phone: 07-11-2013 13:00-0500 Diastolic blood pressure 68 mm[Hg] Rebecca Lopez [facility]; [facility] Work Phone: Encounters Encounter Date Encounter Type Care Provider Facility Start: 08-30-2023 End: 08-30-2023 ambulatory JJ CORTES Facility:[facility] Start: 07-05-2023 Telephone encounter Ismael Price MD Work Phone: [facility] Procedures Date Procedure Procedure Detail Performing Clinician Start: 03-14-2023 Us soft tissue head & neck real time imge docm Jj Cortes DO Work Phone: Start: 02-22-2023 Lipid 1996 panel - Serum or Plasma Vale Claire APRN.GLASS CARRIER Work Phone: Start: 11-02-2022 End: 11-02-2022 Mammography Jj Cortes DO Work Phone: Start: 10-26-2022 Ct thorax w/o contrast material Vale Claire APRN.GLASS CARRIER Work Phone: Start: 09-27-2022 Dxa bone density study 1/> sites axial skel Jj Cortes DO Work Phone: Start: 08-30-2022 Cv strs tst xers&/or rx cont ecg trcg only Jj Cortes DO Work Phone: Start: 07-23-2022 Ecg routine ecg w/least 12 lds i&r only [facility] Provider Start: 10-15-2021 Mammography Vale Claire APRN.GLASS CARRIER Work Phone: Start: 05-01-2021 Colonoscopy Vale Claire APRN.GLASS CARRIER Work Phone: Start: 04-27-2021 Adult depression screening assessment Vale Claire APRN.GLASS CARRIER Work Phone: Start: 07-09-2013 End: 07-09-2013 Thyroid Comments: See Note; NOTES: [facility] Imaging Services [address] [place] [address] Ultrasound Report MR#: [id number] Acct: [id number] Name: ZIGGY FARMER Rep #: [id number] : 1960 F 53 From: Zelalem Perkins MD PCP: Zenia Miller MD Status: REG CLI Study: Thyroid Date of Exam: 07/09/13 Exam# [id number] Ordering Dr: Jeannette Davidson STUDY: THYROID ULTRASOUND REASON FOR EXAM: Female, 53 years old. History of thyroid nodule and previous biopsy TECHNIQUE: Ultrasound evaluation of the thyroid was performed with real-time and static jonas-scale imaging. COMPARISON: 01/07/12 FINDINGS: RIGHT LOBE: The right lobe of the thyroid gland measures 5.0 x 1.7 x 1.3. cm. There is a homogeneous echotexture. There are 2 simple cysts in the lower pole measuring between 2 and 4 mm in size. LEFT LOBE: The left lobe of the thyroid gland measures 5.4 x 1.6 x 1.3 cm. There is a homogeneous echotexture. Stable 1.7 cm thyroid nodule which has undergone previous biopsy. There are now subcentimeter nodules noted in the lower pole the left lobe as well. These are well-defined and another yearly followup is recommended. ISTHMUS: The isthmus measures 0.4cm . IMPRESSION: Stable enlargement of the thyroid gland with stable 1.7 cm nodule in the left lobe. This has undergone previous biopsy Tiny new subcentimeter nodules in the left lobe too small to characterize. 6-12 month followup ultrasound recommended to assure stability Sub-centimeter simple cysts in the right lobe Electronically Signed: Fidencio Perkins M.D. at 13:43 EST , Service support [phone], CC: Jeannette Davidson; Zenia Miller MD Ground Operations Crew Member: Signed Jeannette Ciesa Work Phone: Plan of Treatment Date Care Activity Detail Author Start: 02-23-2028 Lipid 1996 panel - Serum or Plasma Lipid Screening [facility] Start: 02-23-2028 LIPID SCREEN LIPID SCREEN [facility] Start: 11-12-2027 LIPID SCREEN LIPID SCREEN [facility] Start: 08-17-2027 LIPID SCREEN LIPID SCREEN [facility] Start: 05-01-2026 Colonoscopy COLONOSCOPY [facility] Start: 05-01-2026 COLORECTAL CANCER SCREENING COLORECTAL CANCER SCREENING [facility] Start: 01-22-2026 LIPID SCREEN LIPID SCREEN [facility] Start: 08-17-2025 DIABETES SCREEN DIABETES SCREEN [facility] Start: 08-17-2025 Diabetes Screening Diabetes Screening [facility] Start: 05-27-2025 HPV TESTING HPV TESTING [facility] Start: 05-27-2025 PAP TESTING PAP TESTING [facility] Start: 03-02-2024 ANNUAL PCP TEAM CHRONIC DISEASE VISIT ANNUAL PCP TEAM CHRONIC DISEASE VISIT [facility] Start: 11-03-2023 Mammography [facility] Start: 10-24-2023 End: 07-04-2024 Echocardiography [facility] Cardiology Routine Nonrheumatic mitral valve regurgitation Expected: 10/24/2023, Expires: 07/04/2024 [facility] Work Phone: Immunizations Immunization Date Immunization Notes Care Provider Dian mercado 03-13-2021 zoster vaccine recombinant Vale Dakotah SPICE MIXER.GLASS CARRIER Work Phone: [facility] Work Phone: 12-09-2020 zoster vaccine recombinant Vale Dakotah SPICE MIXER.GLASS CARRIER Work Phone: [facility] Work Phone: 05-16-2019 influenza virus vaccine, unspecified formulation Vale Dakotah SPICE MIXER.GLASS CARRIER Work Phone: [facility] 08-10-2016 zoster vaccine, live Vale Dakotah SPICE MIXER.GLASS CARRIER Work Phone: [facility] Work Phone: 05-07-2014 influenza, seasonal, injectable Vale Dakotah SPICE MIXER.GLASS CARRIER Work Phone: [facility] Work Phone: 05-29-2013 influenza virus vaccine, unspecified formulation Vale Claire SPICE MIXER.[facility] Work Phone: [facility] Work Phone: Payers Date Payer Category Payer Unknown [employer]ACK [employer]ARIAS PPO [id number] 2021-Present [phone] [address] [place] [address] PPO [id number] 2021 Unknown 2021 Unknown [id number] Social History Date Type Detail Facility Start: 07-23-[address] [facility] Ex-smoker [facility] End: 08-15-1977 History of tobacco use Current smoker [facility] Start: 12-21-2021 End: 07-04-2023 Alcohol intake Current non-drinker of alcohol (finding) [facility] Start: 05-27-2020 End: 07-22-2022 History SDOH Alcohol Frequency 1 [facility] Start: 05-27-2020 History SDOH Alcohol Std Drinks 98 [facility] Start: 05-27-2020 End: 07-22-2022 History SDOH Social Connections Phone 3 [facility] Start: 05-27-2020 End: 07-22-2022 History SDOH Physical Activity DPW 0 [facility] Start: 05-27-2020 End: 07-22-2022 History SDOH Financial 5 [facility] Start: 05-27-2020 End: 07-22-2022 History SDOH Transport Med 2 [facility] Start: 04-22-2020 Education 16 [facility] Start: 1960 Sex Assigned At Female C [facility] Start: 12-11-2021 End: 12-21-2021 Exposure to SARS-CoV-2 (event) Not sure [facility] Start: 07-21-2022 End: 03-02-2023 Non-smoker Non-smoker [facility] [address] [place] Work Phone: Clinical Notes 12-21-2021 to 08-30-2023 Telephone Encounter - Zoraida Rubio RN - 07/19/2023 9:22 AM ESTTelephone Encounter - Manda Barba RN - 07/18/2023 4:20 PM ESTPatient InstructionsJazzmin Holiday - 10/08/2022 2:15 PM EST Note Date & Type Note Facility 08-30-2023 Note HNO ID: [id number] Author: JJ CORTES, DO Service: ? Author Type: Physician Type: Progress Notes Filed: 08/30/2023 18:08 Note Text: CC: Ziggy Farmer is a 63 year old female who presents to the office for physical. 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 No new symptoms HPL, diet controlled, hasn't tolerated statin therapy lipitor or Crestor in the past- tried these medications prior to 2014 as well as in [id number] and caused her significant muscle aches and intolerance. Hasn't gotten new rx by specialist approved yet but she is willing to start this Osteoporosis, would like to try off the fosamax and just continue her calcium and vitamin D supplements as well as regular weight bearing exercise if able to do this instead. No recent falls or injuries. Hypothyroidism, is taking 25 mcg of levothyroxine daily Chronic neck pain, muscle tension, thinks related to working at a computer every day, worse at the end of the day. Tries to use heating pad as needed and stretches,. No hx of whiplash or MVA injuries in the past. Has gotten some headaches recently, right>left side, sometimes a sharp shooting pain on right temporal/parietal by description, fleeting. No known hx of headaches. She is willing to have fasting labs PAST MEDICAL HISTORY Diagnosis Date Carotid atherosclerosis, bilateral 08/20/2022 mild, left 20-39%, right 0-19% Hypercholesteremia Hypothyroid Low back pain PAST SURGICAL HISTORY Procedure Laterality Date COLONOSCOPY 2008 COLONOSCOPY FLX DX W/COLLJ SPEC WHEN PFRMD 2013 Colonoscopy COLONOSCOPY FLX DX W/COLLJ SPEC WHEN PFRMD 05/01/2021 LIG/TRNSXJ FLP TUBE ABDL/VAG APPR UNI/BI 1987 Tubal ligation RECONSTR JAW,FULL,ENDO IMPLNT 10/2013 THYROID FINE NEEDLE ASPIRATION 10/07/2020 TONSILLECTOMY HX TYMPANOLYSIS TRANSCANAL 10/[address] [facility] [address] Jenkins BREAST CYST PUNCTURE ASP (AG,EU,HL,MM,SP) 2003? Social History: Social History Tobacco Use Smoking status: Former Types: Cigarettes Quit date: 08/15/1977 Years since quittin.0 Smokeless tobacco: Never Vaping Use Vaping Use: Never used Substance Use Topics Alcohol use: No Drug use: No FAMILY HISTORY Problem Relation Age of Onset No Known Problems Mother Coronary Artery Disease Father 70 No Known Problems Sister No Known Problems Sister No Known Problems Son No Known Problems Son other (MS) Other none Heart Paternal Grandfather Current Outpatient prescriptions: bempedoic acid (NEXLETOL) 180 mg tabletTake 1 tablet (180 mg) by mouth once daily.Disp: 90 tabletRfl: 3 alendronate (FOSAMAX) 70 mg tabletTake 1 tablet by mouth one time a week. Take with a full glass of water, on an empty stomach; do NOT lie down for 30minutes.Disp: 12 tabletRfl: 3 levothyroxine (SYNTHROID) 25 mcg tabletTake 1 tablet by mouth daily before breakfast. BRAND ONLYDisp: 90 tabletRfl: 3 Magnesium 250 mg tabTake 350 mg by mouth.Disp: Rfl: calcium carbonate/vitamin D3 (CALCIUM 600 + D ORAL)Take by mouth.Disp: Rfl: Zinc Gluconate 30 mg tabTake by mouth.Disp: Rfl: cyanocobalamin (VITAMIN B-12) 1,000 mcg tabTake 1,000 mcg by mouth once daily.Disp: Rfl: ascorbic acid (MORRIS-C ORAL)Take by mouth.Disp: Rfl: calcium carbonate/vitamin D2 ([id number]-A ORAL)Take by mouth.Disp: Rfl: aspirin, enteric coated (ASPIRIN, ENTERIC COATED) 81 mg EC tabletTake 81 mg by mouth once daily.Disp: Rfl: Allergies: ALLERGIES No Known Allergies ROS: See HPI PE: 08/30/23 1246 BP: 100/64 Pulse: 64 Resp: 12 Temp: 36.2 ?C (97.2 ?F) TempSrc: Left Tympanic Weight: 50.3 kg (111 lb) Height: 157.5 cm (5' 2.01 ) Gen: AANDO, NAD, non-toxic appearing, Pleasant, cooperative HEENT: NT/AC, PERRLA, EOMs intact b/l, nares clear and patent b/l, pharynx without erythema, exudate or lesions. Uvula midline. EACs without erythema or debris. TMs pearly bashir with intact landmarks b/l. Neck: supple, No cervical LAD, no thyromegaly, no carotid bruits, + tight muscles b/l neck especially in trapezius and levator scapulae and rhomboids CV: RRR, normal S1 and S2, no murmurs, no gallops, no rubs, Pulses 2+ and symmetric in UE and LE b/l Lungs: normal respiratory effort, CTA b/l, no wheezing or rhonchi or rales Abd: soft, NT, ND, +BS, no hepatosplenomegaly MS: FROM all 4 extremities Neuro: CN II-XII intact b/l, strength 5/5 b/l UE and LE, DTRs 2/4 UE and LE, sensation intact. Skin: warm, dry, intact, No rashes or lesions on exposed skin. ASSESSMENT/PLAN: 1. Well adult exam - ICD9: V70.0, ICD10: Z00.00 (primary diagnosis) - Counseled on healthy diet and regular exercise - Calcium intake with supplements or by diet of 1000 mg/day for under 50, 5620-3612 mg/day for 50+ - TSH BLD - T4 FREE/FREE THYROX - T3 FREE BLD - COMP METABOLIC PANEL - HGB A1C - VITAMIN B12 BLOOD 2. Encounter for screening mammogram for mal (more content not included)... [facility] 07-19-2023 Miscellaneous Notes Spoke with patient and notified that Nexletol was denied. She is going to contact insurance directly. Zoraida Rubio RN Ziggy called. She would like to know the status of her Nexletol prescription. She can be reached at [phone], if Ziggy does not answer, please leave a detailed voicemail. Manda Barba RN Received a denial letter from [facility] for the Nexletol. Placed in Dr. Price's door box for letter of appeal. Zoraida Rubio RN Call received from pt. Insurance information verified. PA sent via Rep[employer] Report blake to [facility] PBM with office notes Drew Riley LPN Attempted prior authorization for Nexletol ordered by Dr. Price yesterday. Inserted insurance information from [employer] blue cross/ blue shield card, indicated no coverage found. Left message on patient's voicemail requesting a return call to our office, confirming coverage. Zoraida Rubio RN documented in this encounter [facility] 07-04-2023 Note HNO ID: [id number] Author: Ismael Price MD Service: ? Author Type: Physician Type: Progress Notes Filed: 07/04/2023 4:54 PM Note Text: [facility] CARDIOLOGY Cardiology ([facility]) [address] [facility] [id number] OUTPATIENT VISIT DATE 07/04/2023 PRIMARY CARE PHYSICIAN: Jj Cortes [address] [place] [address] REFERRING PHYSICIAN: Vale Claire [address] [facility] [address] HISTORY OF PRESENT ILLNESS: Ms. Farmer is a 63 year old woman with a history of dyslipidemia, mild carotid artery disease, mitral valve prolapse with mild mitral regurgitation who presents for routine follow-up. Since her last visit, she continues to do well. She has good functional capacity. She has not had symptoms concerning for angina. She has not had symptoms concerning for atrial fibrillation or rapid heartbeats. PAST MEDICAL HISTORY Diagnosis Date Carotid atherosclerosis, bilateral 08/20/2022 mild, left 20-39%, right 0-19% Hypercholesteremia Hypothyroid Low back pain PAST SURGICAL HISTORY Procedure Laterality Date COLONOSCOPY 2008 COLONOSCOPY FLX DX W/COLLJ SPEC WHEN PFRMD 2013 Colonoscopy COLONOSCOPY FLX DX W/COLLJ SPEC WHEN PFRMD 05/01/2021 LIG/TRNSXJ FLP TUBE ABDL/VAG APPR UNI/BI 1987 Tubal ligation RECONSTR JAW,FULL,ENDO IMPLNT 10/2013 THYROID FINE NEEDLE ASPIRATION 10/07/2020 TONSILLECTOMY HX TYMPANOLYSIS TRANSCANAL 10/[address] [facility] [address] Jenkins BREAST CYST PUNCTURE ASP (AG,EU,HL,MM,SP) 2003? SOCIAL HISTORY Social History Tobacco Use Smoking status: Former Types: Cigarettes Quit date: 08/15/1977 Years since quittin.9 Smokeless tobacco: Never Vaping Use Vaping Use: Never used Substance Use Topics Alcohol use: No Drug use: No FAMILY HISTORY Problem Relation Age of Onset No Known Problems Mother Coronary Artery Disease Father 70 No Known Problems Sister No Known Problems Sister No Known Problems Son No Known Problems Son other (MS) Other none Heart Paternal Grandfather ALLERGIES: ALLERGIES No Known Allergies MEDICATIONS: alendronate (FOSAMAX) 70 mg tabletTake 1 tablet by mouth one time a week. Take with a full glass of water, on an empty stomach; do NOT lie down for 30minutes.Disp: 12 tabletRfl: 3 levothyroxine (SYNTHROID) 25 mcg tabletTake 1 tablet by mouth daily before breakfast. BRAND ONLYDisp: 90 tabletRfl: 3 Magnesium 250 mg tabTake 350 mg by mouth.Disp: Rfl: calcium carbonate/vitamin D3 (CALCIUM 600 + D ORAL)Take by mouth.Disp: Rfl: Zinc Gluconate 30 mg tabTake by mouth.Disp: Rfl: cyanocobalamin (VITAMIN B-12) 1,000 mcg tabTake 1,000 mcg by mouth once daily.Disp: Rfl: ascorbic acid (MORRIS-C ORAL)Take by mouth.Disp: Rfl: calcium carbonate/vitamin D2 ([id number]-G ORAL)Take by mouth.Disp: Rfl: aspirin, enteric coated (ASPIRIN, ENTERIC COATED) 81 mg EC tabletTake 81 mg by mouth once daily.Disp: Rfl: REVIEW OF SYSTEMS: Review of Systems Constitutional: Negative for chills, fever, malaise/fatigue and weight loss. HENT: Negative for hearing loss and sore throat. Eyes: Negative for blurred vision and double vision. Respiratory: Negative. Cardiovascular: Positive for chest pain and palpitations. Gastrointestinal: Negative. Genitourinary: Negative for dysuria, frequency, hematuria and urgency. Musculoskeletal: Negative. Skin: Negative. Neurological: Negative for dizziness, seizures, loss of consciousness, weakness and headaches. Endo/Heme/Allergies: Negative for environmental allergies. Does not bruise/bleed easily. Psychiatric/Behavioral: Negative for depression. PHYSICAL EXAMINATION: BP 114/74 Pulse 56 Wt 112 lb 6.4 oz (51.0kg) SpO2 99% General: Pleasant very fit appearing woman sitting appears comfortable no apparent distress. Alert and oriented x3 HEENT: Carotid upstrokes are brisk bilateral without bruits no JVD Pulmonary: Lungs are clear no rales, wheezes, rhonchi Cardiovascular: Normal S1, S2 with regular rate and rhythm. Late systolic murmur heard over the apex. Extremities: Warm, well-perfused, no lower extremity edema. 2+ distal pulses CARDIOVASCULAR MEDICINE TESTING: Zio Monitor 10/08/22-10/22/2022 Patient had a min HR of 48 bpm, max HR of 210 bpm, and avg HR of 71 bpm. Predominant underlying rhythm was Sinus Rhythm. 1 run of Ventricular Tachycardia occurred lasting 4 beats with a max rate of 207 bpm (avg 198 bpm). 33 Supraventricular Tachycardia runs occurred, the run with the fastest interval lasting 4 beats with a max rate of 210 bpm, the longest lasting 18.9 secs with an avg rateof 124 bpm. Isolated SVEs were rare (<1.0%), SVE Couplets were rare (<1.0%), and SVE Triplets were rare (<1.0%). Isolated VEs were rare (<1.0%), VE Couplets were are (<1.0%), and no VE Triplets were present. Ventricular Bigeminy and Tri (more content not included)... [facility] 07-04-2023 Instructions Ismael Price MD - 07/04/2023 3:58 PM EST We are going to try Nexletol 180 mg once per day Repeat fasting blood work in 4 months Repeat echocardiogram in October 2023 documented in this encounter [facility] 07-04-2023 History of Present illness Narrative Images from the original note were not included. [facility] SECTION [facility] REGIONAL CARDIOLOGY Cardiology ([facility]) [address] [id number] OUTPATIENT VISIT DATE 07/04/2023 PRIMARY CARE PHYSICIAN: Jj Cortes [address] [id number] REFERRING PHYSICIAN: Vale Claire [address] [facility] [address] HISTORY OF PRESENT ILLNESS: Ms. Farmer is a 63 year old woman with a history of dyslipidemia, mild carotid artery disease, mitral valve prolapse with mild mitral regurgitation who presents for routine follow-up. Since her last visit, she continues to do well. She has good functional capacity. She has not had symptoms concerning for angina. She has not had symptoms concerning for atrial fibrillation or rapid heartbeats. PAST MEDICAL HISTORY Diagnosis Date Carotid atherosclerosis, bilateral 08/20/2022 mild, left 20-39%, right 0-19% Hypercholesteremia Hypothyroid Low back pain PAST SURGICAL HISTORY Procedure Laterality Date COLONOSCOPY 2008 COLONOSCOPY FLX DX W/COLLJ SPEC WHEN PFRMD 2013 Colonoscopy COLONOSCOPY FLX DX W/COLLJ SPEC WHEN PFRMD 05/01/2021 LIG/TRNSXJ FLP TUBE ABDL/VAG APPR UNI/BI 1987 Tubal ligation RECONSTR JAW,FULL,ENDO IMPLNT 10/2013 THYROID FINE NEEDLE ASPIRATION 10/07/2020 TONSILLECTOMY HX TYMPANOLYSIS TRANSCANAL 10/[address] [facility] [address] Jenkins BREAST CYST PUNCTURE ASP (AG,EU,HL,MM,SP) 2003? SOCIAL HISTORY Social History Tobacco Use Smoking status: Former Types: Cigarettes Quit date: 08/15/1977 Years since quittin.9 Smokeless tobacco: Never Vaping Use Vaping Use: Never used Substance Use Topics Alcohol use: No Drug use: No FAMILY HISTORY Problem Relation Age of Onset No Known Problems Mother Coronary Artery Disease Father 70 No Known Problems Sister No Known Problems Sister No Known Problems Son No Known Problems Son other (MS) Other none Heart Paternal Grandfather ALLERGIES: ALLERGIES No Known Allergies MEDICATIONS: alendronate (FOSAMAX) 70 mg tablet^Take 1 tablet by mouth one time a week. Take with a full glass of water, on an empty stomach; do NOT lie down for 30minutes.^Disp: 12 tablet^Rfl: 3 levothyroxine (SYNTHROID) 25 mcg tablet^Take 1 tablet by mouth daily before breakfast. BRAND ONLY^Disp: 90 tablet^Rfl: 3 Magnesium 250 mg tab^Take 350 mg by mouth.^Disp: ^Rfl: calcium carbonate/vitamin D3 (CALCIUM 600 + D ORAL)^Take by mouth.^Disp: ^Rfl: Zinc Gluconate 30 mg tab^Take by mouth.^Disp: ^Rfl: cyanocobalamin (VITAMIN B-12) 1,000 mcg tab^Take 1,000 mcg by mouth once daily.^Disp: ^Rfl: ascorbic acid (MORRIS-C ORAL)^Take by mouth.^Disp: ^Rfl: calcium carbonate/vitamin D2 (LUIIEEL-385-G ORAL)^Take by mouth.^Disp: ^Rfl: aspirin, enteric coated (ASPIRIN, ENTERIC COATED) 81 mg EC tablet^Take 81 mg by mouth once daily.^Disp: ^Rfl: REVIEW OF SYSTEMS: Review of Systems Constitutional: Negative for chills, fever, malaise/fatigue and weight loss. HENT: Negative for hearing loss and sore throat. Eyes: Negative for blurred vision and double vision. Respiratory: Negative. Cardiovascular: Positive for chest pain and palpitations. Gastrointestinal: Negative. Genitourinary: Negative for dysuria, frequency, hematuria and urgency. Musculoskeletal: Negative. Skin: Negative. Neurological: Negative for dizziness, seizures, loss of consciousness, weakness and headaches. Endo/Heme/Allergies: Negative for environmental allergies. Does not bruise/bleed easily. Psychiatric/Behavioral: Negative for depression. PHYSICAL EXAMINATION: BP 114/74 Pulse 56 Wt 112 lb 6.4 oz (51.0kg) SpO2 99% General: Pleasant very fit appearing woman sitting appears comfortable no apparent distress. Alert and oriented x3 HEENT: Carotid upstrokes are brisk bilateral without bruits no JVD Pulmonary: Lungs are clear no rales, wheezes, rhonchi Cardiovascular: Normal S1, S2 with regular rate and rhythm. Late systolic murmur heard over the apex. Extremities: Warm, well-perfused, no lower extremity edema. 2+ distal pulses CARDIOVASCULAR MEDICINE TESTING: Zio Monitor 10/08/22-10/22/2022 Patient had a min HR of 48 bpm, max HR of 210 bpm, and avg HR of 71 bpm. Predominant underlying rhythm was Sinus Rhythm. 1 run of Ventricular Tachycardia occurred lasting 4 beats with a max rate of 207 bpm (avg 198 bpm). 33 Supraventricular Tachycardia runs occurred, the run with the fastest interval lasting 4 beats with a max rate of 210 bpm, the longest lasting 18.9 secs with an avg rateof 124 bpm. Isolated SVEs were rare (<1.0%), SVE Couplets were rare (<1.0%), and SVE Triplets were rare (<1.0%). Isolated VEs were rare (<1.0%), VE Couplets were are (<1.0%), and no VE Triplets were present. Ventricular Bigeminy and Trigeminy were present. Echocardiogram 10/26/2022: - The left ventricle is normal in size. Left ventricular systolic function is normal. EF = 59 5% (2D biplane) GLS= -20.5% Normal. - The right ventricle is normal in size. Right ventricular systolic function is normal. - The left atrial cavity is mildly dilated. - The visualized aorta is borderline dilated with a maximal dimension of 3.8 cm. - There is moderate (2+) late systolic mitral valve regurgitation due to prolapse. Regurgitant orifice area (PISA) is 0.18 cm . - There is mild (1+) tricuspid regurgitation. CT Chest 10/26/2022: Heart, pericardium, and thoracic vessels: The thoracic aorta and main pulmonary artery are normal in caliber. The cardiac chambers are normal in size. No coronary artery atherosclerotic calcifications are noted, although the study is not optimized for coronary assessment. No pericardial effusion or thickening. Carotid Ultrasound 08/19/2022 IMPRESSION RIGHT SIDE Internal carotid artery: 0-19% stenosis. Vertebral artery: Patent and antegrade flow noted. Subclavian artery: Plaque visualized without evidence of hemodynamically significant stenosis. LEFT SIDE Internal carotid artery: 20-39% stenosis. Vertebral artery: Patent and antegrade flow noted. I have personally reviewed the Laboratory Testing and Echocardiogram. IMPRESSION: Ms. Farmer is a 63 year old woman with significant dyslipidemia likely familial hypercholesterolemia, mild carotid artery disease, severe statin intolerance, and moderate mitral regurgitation who presents for routine follow-up. PLAN AND RECOMMENDATIONS: 1. Nonrheumatic mitral valve regurgitation - ICD9: 424.0, ICD10: I34.0 (primary diagnosis) Plan to repeat echocardiogram prior to next office visit - ECHO - PERFLUTREN LIPID MICROSPHERES 1.1 MG/ML INJECTION IN NS 10 ML - SODIUM CHLORIDE 0.9 % (FLUSH) INJECTION SYRINGE 2. Palpitations - ICD9: 785.1, ICD10: R00.2 3. Hypercholesteremia - ICD9: 272.0, ICD10: E78.00 Fasting blood work from February 2023 was reviewed. LDL cholesterol 129 mg/dL. Patient has a history of severe statin intolerance. Given her known history of carotid artery disease have recommended treating for an LDL cholesterol less than 70 mg/dL based on current guidelines. We will attempt a trial of Nexletol 180 mg daily. - NEXLETOL 180 MG TABLET 4. Carotid atherosclerosis, bilateral - ICD9: 433.10, 433.30, ICD10: I65.23 No symptoms concerning for TIA or CVA. Repeat carotid ultrasound in 3 years Ismael Price MD documented in this encounter [facility] 04-28-2023 Miscellaneous Notes Pt notified. Valery Hurd Ma Please have her cut back her vitamin D3 to 2000 international unit(s) daily. Vale Claire APRN.SIDDHARTH Pt states she is taking 5000u VitD3 daily. Kari Clement LPN Message left for pt to call back for results. Valery Hurd MA Please let Ziggy know we received her lab results. Her vitamin D level is a little high. Please confirm the amount of Vitamin D3 supplement she is taking, we'll need to cut that back a little. Vale Claire APRN.CNP documented in this encounter [facility] 03-14-2023 Note HNO ID: [id number] Author: Jacey Mackey RDMS Service: ? Author Type: Administrative Fellow Type: Progress Notes Filed: 03/14/2023 2:16 PM Note Text: Radiology Service Progress Note PATIENT NAME: Ziggy Farmer DATE OF SERVICE: March 14, 2023 TIME: 2:12 PM PATIENT IDENTITY VERIFICATION COMPLETED USING TWO (2) IDENTIFIERS: Name and Date of confirmed by patient verbally. FALL SCREENING: Has the patient had 2 falls in the last year or 1 fall with injury or currently using an Ambulatory Assistive Device (Walker, Cane, Wheelchair, Crutches, etc.)? No PATIENT GENDER DATA: Female. status: : No status: NO. PATIENT RELEVANT IMPLANT DATA REVIEWED: Not Applicable RADIOLOGY DEPARTMENT: Ultrasound PERIPHERAL IV DATA: Not applicable SIGNED BY: Jacey Mackey RDMS March 14, 2023 2:12 PM [facility] 03-14-2023 History of Present illness Narrative Radiology Service Progress Note PATIENT NAME: Ziggy Farmer DATE OF SERVICE: March 14, 2023 TIME: 2:12 PM PATIENT IDENTITY VERIFICATION COMPLETED USING TWO (2) IDENTIFIERS: Name and Date of confirmed by patient verbally. FALL SCREENING: Has the patient had 2 falls in the last year or 1 fall with injury or currently using an Ambulatory Assistive Device (Walker, Cane, Wheelchair, Crutches, etc.)? No PATIENT GENDER DATA: Female. status: : No status: NO. PATIENT RELEVANT IMPLANT DATA REVIEWED: Not Applicable RADIOLOGY DEPARTMENT: Ultrasound PERIPHERAL IV DATA: Not applicable SIGNED BY: Jacey Mackey RDMS March 14, 2023 2:12 PM documented in this encounter [facility] 03-14-2023 Miscellaneous Notes Fosamax was refilled for a year to [facility] in December 2022. Pt notified via [employer] to check with pharmacy. documented in this encounter [facility] 03-14-2023 Miscellaneous Notes Pt notified via [employer] that the synthroid ws refilled for year supply in December to [facility] and to check with the pharmacy. Valery Hurd Ma documented in this encounter [facility] 03-02-2023 Note HNO ID: [id number] Author: Jj Cortes, DO Service: ? Author Type: Physician Type: Progress Notes Filed: 03/02/2023 2:05 PM Note Text: CC: Ziggy Farmer is a 62 year old female who presents to the office for testing follow up HPI: Seen in office 07/23/2022 Does get occasional LH/dizziness symptoms, occasional palpitations, with exertion as well as rest. No previous hx of CAD or heart disease that she is aware of. Hasn't had a stress test in the past. Denies any obvious chest pressure or pain. Does occasionally also feel short of breath with exertion such as up and down flights of steps. Hypothyroidism, taking synthroid 25 mcg daily as prescribed Also taking vitamins and supplements for general health and for osteoporosis including calcium and vitamin D. She hasn't been doing a lot of weight bearing exercise although needs to restart this. HPL, not interested in statin therapy Swollen lymph node, side of right neck for 2 weeks now, did have URI with sinus pressure and congestion and PND, these other symptoms are now resolved. Did have fever and chills- now resolved. Seen for follow up in Sep 2022 as below Intermittent SOB, gripping tight achy pain to bilateral upper arms. Jaw pain-first time had a sharp terrible pain in her right jaw and instant very heavy pressure on her chest. called squad, took them 15 minutes to get there and then felt fine. A week ago had the pain in her jaw, labored breathing, both legs felt heavy. Took 2 baby Aspirin and felt better within 10-15 minutes. Does like to exercise, but since first episode about 2 months ago has only been able to do 10-15 minutes and then has to stop r/t heavy breathing. Has high cholesterol. Working on diet and exercise for this. Rechecking these levels again in a couple months. Has been under more stress at work than typically has been. Episodes seem to include jaw pain typically on right, gripping pain to her upper arms bilaterally, chest heaviness, SOB, tingling in legs and feet. Currently She had stress treadmill testing which was normal. ECG showed sinus bradycardia. ECHO showed that her mitral valve regurgitation and prolapse worsened to moderate intensity/severity and mild LA dilation. She was referred to [employer] [employer] Dr. Price whom she saw in October and recommended serial echo testing HPL, she is working on consistency of intermittent fasting and weight management and exercising routinely. LDL has improved from 180s to 150s to 129 currently. She wants to continue to avoid statin therapy Osteoporosis. Last BMD in October 2022 and showing worsening osteoporosis. She started on fosamax, she is tolerating rx well without any SE. Also taking her supplements Thyroid nodule. Last thyroid US 10/2021, recommended to have follow up in 1-2 years PAST MEDICAL HISTORY Diagnosis Date Carotid atherosclerosis, bilateral 08/20/2022 mild, left 20-39%, right 0-19% Hypercholesteremia Hypothyroid Low back pain PAST SURGICAL HISTORY Procedure Laterality Date COLONOSCOPY 2008 COLONOSCOPY FLX DX W/COLLJ SPEC WHEN PFRMD 2013 Colonoscopy COLONOSCOPY FLX DX W/COLLJ SPEC WHEN PFRMD 05/01/2021 LIG/TRNSXJ FLP TUBE ABDL/VAG APPR UNI/BI 1987 Tubal ligation RECONSTR JAW,FULL,ENDO IMPLNT 10/2013 THYROID FINE NEEDLE ASPIRATION 10/07/2020 TONSILLECTOMY HX TYMPANOLYSIS TRANSCANAL 10/[address] [facility] [address] Jenkins US BREAST CYST PUNCTURE ASP (AG,EU,HL,MM,SP) 2003? Current Outpatient Medications Medication Sig alendronate (FOSAMAX) 70 mg tablet Take 1 tablet by mouth one time a week. Take with a full glass of water, on an empty stomach; do NOT lie down for 30minutes. levothyroxine (SYNTHROID) 25 mcg tablet Take 1 tablet by mouth daily before breakfast. BRAND ONLY Magnesium 250 mg tab Take 350 mg by mouth. calcium carbonate/vitamin D3 (CALCIUM 600 + D ORAL) Take by mouth. Zinc Gluconate 30 mg tab Take by mouth. cyanocobalamin (VITAMIN B-12) 1,000 mcg tab Take 1,000 mcg by mouth once daily. ascorbic acid (MORRIS-C ORAL) Take by mouth. calcium carbonate/vitamin D2 (MSITSYR-960-Z ORAL) Take by mouth. omega 6-kjp-osg-fish oil (FISH OIL) 100-160-1,000 mg cap Take 1 capsule by mouth once daily. aspirin, enteric coated (ASPIRIN, ENTERIC COATED) 81 mg EC tablet Take 81 mg by mouth once daily. Current Facility-Administered Medications Medication Dose Route Frequency perflutren lipid microspheres 1.3 mL in NaCl (PF) 0.9% 10 mL injection (DEFINITY) INTRAVENOUS DIRECTED PRN sodium chloride 0.9 % (flush) 10 mL (BD POSIFLUSH) 10 mL INTRAVENOUS DIRECTED PRN ALLERGIES No Known Allergies Social History Tobacco Use Smoking status: Former Types: Cigarettes Quit date: 08/15/1977 Years since quittin.5 Smokeless tobacco: Never Vaping Use Vaping Use: Never used Substance Use Topics Alcohol use: No Drug use: No ROS: See HPI PE: BP 100/72 Pulse 64 Temp (Src) 97 (Right (more content not included)... [facility] 03-02-2023 History of Present illness Narrative CC: Ziggy Farmer is a 62 year old female who presents to the office for testing follow up HPI: Seen in office 07/23/2022 Does get occasional LH/dizziness symptoms, occasional palpitations, with exertion as well as rest. No previous hx of CAD or heart disease that she is aware of. Hasn't had a stress test in the past. Denies any obvious chest pressure or pain. Does occasionally also feel short of breath with exertion such as up and down flights of steps. Hypothyroidism, taking synthroid 25 mcg daily as prescribed Also taking vitamins and supplements for general health and for osteoporosis including calcium and vitamin D. She hasn't been doing a lot of weight bearing exercise although needs to restart this. HPL, not interested in statin therapy Swollen lymph node, side of right neck for 2 weeks now, did have URI with sinus pressure and congestion and PND, these other symptoms are now resolved. Did have fever and chills- now resolved. Seen for follow up in Sep 2022 as below Intermittent SOB, gripping tight achy pain to bilateral upper arms. Jaw pain-first time had a sharp terrible pain in her right jaw and instant very heavy pressure on her chest. called squad, took them 15 minutes to get there and then felt fine. A week ago had the pain in her jaw, labored breathing, both legs felt heavy. Took 2 baby Aspirin and felt better within 10-15 minutes. Does like to exercise, but since first episode about 2 months ago has only been able to do 10-15 minutes and then has to stop r/t heavy breathing. Has high cholesterol. Working on diet and exercise for this. Rechecking these levels again in a couple months. Has been under more stress at work than typically has been. Episodes seem to include jaw pain typically on right, gripping pain to her upper arms bilaterally, chest heaviness, SOB, tingling in legs and feet. Currently She had stress treadmill testing which was normal. ECG showed sinus bradycardia. ECHO showed that her mitral valve regurgitation and prolapse worsened to moderate intensity/severity and mild LA dilation. She was referred to [facility] [employer] Dr. Price whom she saw in October and recommended serial echo testing [facility], she is working on consistency of intermittent fasting and weight management and exercising routinely. LDL has improved from 180s to 150s to 129 currently. She wants to continue to avoid statin therapy Osteoporosis. Last BMD in October 2022 and showing worsening osteoporosis. She started on fosamax, she is tolerating rx well without any SE. Also taking her supplements Thyroid nodule. Last thyroid US 10/2021, recommended to have follow up in 1-2 years PAST MEDICAL HISTORY Diagnosis Date Carotid atherosclerosis, bilateral 08/20/2022 mild, left 20-39%, right 0-19% Hypercholesteremia Hypothyroid Low back pain PAST SURGICAL HISTORY Procedure Laterality Date COLONOSCOPY 2008 COLONOSCOPY FLX DX W/COLLJ SPEC WHEN PFRMD 2013 Colonoscopy COLONOSCOPY FLX DX W/COLLJ SPEC WHEN PFRMD 05/01/2021 LIG/TRNSXJ FLP TUBE ABDL/VAG APPR UNI/BI 1987 Tubal ligation RECONSTR JAW,FULL,ENDO IMPLNT 10/2013 THYROID FINE NEEDLE ASPIRATION 10/07/2020 TONSILLECTOMY HX TYMPANOLYSIS TRANSCANAL 10/[address] [facility] [address] Jenkins BREAST CYST PUNCTURE ASP (AG,EU,HL,MM,SP) 2003? Current Outpatient Medications Medication Sig alendronate (FOSAMAX) 70 mg tablet Take 1 tablet by mouth one time a week. Take with a full glass of water, on an empty stomach; do NOT lie down for 30minutes. levothyroxine (SYNTHROID) 25 mcg tablet Take 1 tablet by mouth daily before breakfast. BRAND ONLY Magnesium 250 mg tab Take 350 mg by mouth. calcium carbonate/vitamin D3 (CALCIUM 600 + D ORAL) Take by mouth. Zinc Gluconate 30 mg tab Take by mouth. cyanocobalamin (VITAMIN B-12) 1,000 mcg tab Take 1,000 mcg by mouth once daily. ascorbic acid (MORRIS-C ORAL) Take by mouth. calcium carbonate/vitamin D2 ([id number]-758-U ORAL) Take by mouth. omega 8-hwf-slc-fish oil (FISH OIL) 100-160-1,000 mg cap Take 1 capsule by mouth once daily. aspirin, enteric coated (ASPIRIN, ENTERIC COATED) 81 mg EC tablet Take 81 mg by mouth once daily. Current Facility-Administered Medications Medication Dose Route Frequency perflutren lipid microspheres 1.3 mL in NaCl (PF) 0.9% 10 mL injection (DEFINITY) INTRAVENOUS DIRECTED PRN sodium chloride 0.9 % (flush) 10 mL (BD POSIFLUSH) 10 mL INTRAVENOUS DIRECTED PRN ALLERGIES No Known Allergies Social History Tobacco Use Smoking status: Former Types: Cigarettes Quit date: 08/15/1977 Years since quittin.5 Smokeless tobacco: Never Vaping Use Vaping Use: Never used Substance Use Topics Alcohol use: No Drug use: No ROS: See HPI PE: BP 100/72 Pulse 64 Temp (Src) 97 (Right Tympanic) Resp 16 Wt 113 lb (51.3kg) Gen: A&OX3, NAD, non-toxic appearing HEENT: PERRLA, EOMs intact b/l, nares without drainage, pharynx without erythema, exudate, lesions, or drainage. Uvula midline. Neck: No LAD, no thyromegaly, no meningismus. CV: RRR, 2/6 LLSB blowing murmur Lungs: CTA b/l, no wheezing Skin: No rashes, lesions, or wounds on exposed skin. Mild varicose vein changes in left >right lower leg with trace non pitting edema Normal pulses ASSESSMENT/PLAN: 1. Hypercholesteremia - ICD9: 272.0, ICD10: E78.00 (primary diagnosis) Improving with diet changes and intermittent fasting, f/u for recheck in 6 months and prn,she wants to avoid statin therapy 2. Thyroid nodule - ICD9: 241.0, ICD10: E04.1 - recheck thyroid US and thyroid labs, no new symptoms. - US THYROID/PARATHYROID - TSH BLD - T4 FREE/FREE THYROX - T3 FREE BLD 3. Vitamin D deficiency - ICD9: 268.9, ICD10: E55.9 Continue supplement - VITAMIN D 25 HYDROXY 4. Shortness of breath - ICD9: 786.05, ICD10: R06.02 - symptoms are improved/stable, secondary to MVP and MVR 5. Mitral valve insufficiency, acquired - ICD9: 424.0, ICD10: I34.0 See above, f/u with [employer] in Jun as scheduled, had echo in 2022 6. Hypothyroidism, unspecified type - ICD9: 244.9, ICD10: E03.9 - Instructed patient on importance of taking on an empty stomach either first thing in the morning or at bedtime. Chronic, diagnosed years ago - Behavioral intervention and medication mgmt Jj Cortes DO Return if no improvement. Follow up with Jj Cortes DO. To ER if develops chest pain, shortness of breath Discussed risks, benefits, alternatives, and potential side effects of medications. Patient/Guardian expressed understanding and agreed with the plan. See patient instructions. Jj Cortes DO [address] [place] [address] documented in this encounter [facility] 11-08-2022 Note HNO ID: [id number] Author: Ismael Price MD Service: ? Author Type: Physician Type: Progress Notes Filed: 11/08/2022 3:08 PM Note Text: [facility] SECTION OF REGIONAL CARDIOLOGY Cardiology ([facility]) [address] [facility] [id number] OUTPATIENT VISIT DATE 11/08/2022 PRIMARY CARE PHYSICIAN: Jj Cortes [address] [place] [address] REFERRING PHYSICIAN: Vale Claire [address] [facility] [address] CHIEF COMPLAINT: Chest pain HISTORY OF PRESENT ILLNESS: Ms. Famrer is a 62 year old woman with a history of dyslipidemia, mild carotid artery disease who was seen in the emergency room in August for an episode of chest pain. She woke in the morning had sudden onset feeling of chest pressure rating into her jaw. She was seen at the emergency room and ruled out for an acute coronary syndrome. She had one other similar episode a few months ago where she sat and rested and her symptoms resided. She does not typically have symptoms of gastroesophageal reflux disease. She remains very active and exercises on an elliptical machine most days. She does not have recurrent chest pain or pressure on the elliptical. She denies significant shortness of breath or dyspnea on exertion. She has had episodes of palpitations sometimes associated with a feeling of lightheadedness. She has not had syncope or near syncope. PAST MEDICAL HISTORY Diagnosis Date Carotid atherosclerosis, bilateral 08/20/2022 mild, left 20-39%, right 0-19% Hypercholesteremia Hypothyroid Low back pain PAST SURGICAL HISTORY Procedure Laterality Date COLONOSCOPY 2008 COLONOSCOPY FLX DX W/COLLJ SPEC WHEN PFRMD 2013 Colonoscopy COLONOSCOPY FLX DX W/COLLJ SPEC WHEN PFRMD 05/01/2021 LIG/TRNSXJ FLP TUBE ABDL/VAG APPR UNI/BI 1987 Tubal ligation RECONSTR JAW,FULL,ENDO IMPLNT 10/2013 THYROID FINE NEEDLE ASPIRATION 10/07/2020 TONSILLECTOMY HX TYMPANOLYSIS TRANSCANAL 10/[address] [facility] [address] Jenkins BREAST CYST PUNCTURE ASP (AG,EU,HL,MM,SP) 2003? SOCIAL HISTORY Social History Tobacco Use Smoking status: Former Types: Cigarettes Quit date: 08/15/1977 Years since quittin.2 Smokeless tobacco: Never Vaping Use Vaping Use: Never used Substance Use Topics Alcohol use: No Drug use: No FAMILY HISTORY Problem Relation Age of Onset No Known Problems Mother Coronary Artery Disease Father 70 No Known Problems Sister No Known Problems Sister No Known Problems Son No Known Problems Son other (MS) Other none Heart Paternal Grandfather ALLERGIES: ALLERGIES No Known Allergies MEDICATIONS: Magnesium 250 mg tabTake 350 mg by mouth.Disp: Rfl: alendronate (FOSAMAX) 70 mg tabletTake 1 tablet by mouth one time a week. Take with a full glass of water, on an empty stomach; do NOT lie down for 30minutes.Disp: 12 tabletRfl: 3 levothyroxine (SYNTHROID) 25 mcg tabletTake 1 tablet by mouth daily before breakfast. BRAND ONLYDisp: 90 tabletRfl: 3 calcium carbonate/vitamin D3 (CALCIUM 600 + D ORAL)Take by mouth.Disp: Rfl: Zinc Gluconate 30 mg tabTake by mouth.Disp: Rfl: cyanocobalamin (VITAMIN B-12) 1,000 mcg tabTake 1,000 mcg by mouth once daily.Disp: Rfl: ascorbic acid (MORRIS-C ORAL)Take by mouth.Disp: Rfl: calcium carbonate/vitamin D2 ([id number]-B ORAL)Take by mouth.Disp: Rfl: Cholecalciferol, Vitamin D3, 25 mcg (1,000 unit) capTake 1,000 Units by mouth once daily.Disp: Rfl: omega 4-tqj-lug-fish oil (FISH OIL) 100-160-1,000 mg capTake 1 capsule by mouth once daily.Disp: Rfl: aspirin, enteric coated (ASPIRIN, ENTERIC COATED) 81 mg EC tabletTake 81 mg by mouth once daily.Disp: Rfl: REVIEW OF SYSTEMS: Review of Systems Constitutional: Negative for chills, fever, malaise/fatigue and weight loss. HENT: Negative for hearing loss and sore throat. Eyes: Negative for blurred vision and double vision. Respiratory: Negative. Cardiovascular: Positive for chest pain and palpitations. Gastrointestinal: Negative. Genitourinary: Negative for dysuria, frequency, hematuria and urgency. Musculoskeletal: Negative. Skin: Negative. Neurological: Negative for dizziness, seizures, loss of consciousness, weakness and headaches. Endo/Heme/Allergies: Negative for environmental allergies. Does not bruise/bleed easily. Psychiatric/Behavioral: Negative for depression. PHYSICAL EXAMINATION: BP 100/70 Pulse 82 Wt 116 lb (52.6kg) SpO2 98% General: Pleasant very fit appearing woman sitting appears comfortable no apparent distress. Alert and oriented x3 HEENT: Carotid upstrokes are brisk bilateral without bruits no JVD Pulmonary: Lungs are clear no rales, wheezes, rhonchi Cardiovascular: Normal S1, S2 with regular rate and rhythm. Late systolic murmur heard over the apex. Extremities: Warm, well-perfused, no lower extremity edema. 2+ distal pulses CARDIOVA (more content not included)... [facility] 11-08-2022 History of Present illness Narrative Images from the original note were not included. [facility] SECTION OF REGIONAL CARDIOLOGY Cardiology ([facility]) [address] [facility] [id number] OUTPATIENT VISIT DATE 11/08/2022 PRIMARY CARE PHYSICIAN: Jj Cortes [address] [id number] REFERRING PHYSICIAN: Vale Claire [address] [facility] [address] CHIEF COMPLAINT: Chest pain HISTORY OF PRESENT ILLNESS: Ms. Farmer is a 62 year old woman with a history of dyslipidemia, mild carotid artery disease who was seen in the emergency room in August for an episode of chest pain. She woke in the morning had sudden onset feeling of chest pressure rating into her jaw. She was seen at the emergency room and ruled out for an acute coronary syndrome. She had one other similar episode a few months ago where she sat and rested and her symptoms resided. She does not typically have symptoms of gastroesophageal reflux disease. She remains very active and exercises on an elliptical machine most days. She does not have recurrent chest pain or pressure on the elliptical. She denies significant shortness of breath or dyspnea on exertion. She has had episodes of palpitations sometimes associated with a feeling of lightheadedness. She has not had syncope or near syncope. PAST MEDICAL HISTORY Diagnosis Date Carotid atherosclerosis, bilateral 08/20/2022 mild, left 20-39%, right 0-19% Hypercholesteremia Hypothyroid Low back pain PAST SURGICAL HISTORY Procedure Laterality Date COLONOSCOPY 2008 COLONOSCOPY FLX DX W/COLLJ SPEC WHEN PFRMD 2013 Colonoscopy COLONOSCOPY FLX DX W/COLLJ SPEC WHEN PFRMD 05/01/2021 LIG/TRNSXJ FLP TUBE ABDL/VAG APPR UNI/BI 1987 Tubal ligation RECONSTR JAW,FULL,ENDO IMPLNT 10/2013 THYROID FINE NEEDLE ASPIRATION 10/07/2020 TONSILLECTOMY HX TYMPANOLYSIS TRANSCANAL 10/[address] [facility] [address] Jenkins BREAST CYST PUNCTURE ASP (AG,EU,HL,MM,SP) 2003? SOCIAL HISTORY Social History Tobacco Use Smoking status: Former Types: Cigarettes Quit date: 08/15/1977 Years since quittin.2 Smokeless tobacco: Never Vaping Use Vaping Use: Never used Substance Use Topics Alcohol use: No Drug use: No FAMILY HISTORY Problem Relation Age of Onset No Known Problems Mother Coronary Artery Disease Father 70 No Known Problems Sister No Known Problems Sister No Known Problems Son No Known Problems Son other (MS) Other none Heart Paternal Grandfather ALLERGIES: ALLERGIES No Known Allergies MEDICATIONS: Magnesium 250 mg tab^Take 350 mg by mouth.^Disp: ^Rfl: alendronate (FOSAMAX) 70 mg tablet^Take 1 tablet by mouth one time a week. Take with a full glass of water, on an empty stomach; do NOT lie down for 30minutes.^Disp: 12 tablet^Rfl: 3 levothyroxine (SYNTHROID) 25 mcg tablet^Take 1 tablet by mouth daily before breakfast. BRAND ONLY^Disp: 90 tablet^Rfl: 3 calcium carbonate/vitamin D3 (CALCIUM 600 + D ORAL)^Take by mouth.^Disp: ^Rfl: Zinc Gluconate 30 mg tab^Take by mouth.^Disp: ^Rfl: cyanocobalamin (VITAMIN B-12) 1,000 mcg tab^Take 1,000 mcg by mouth once daily.^Disp: ^Rfl: ascorbic acid (MORRIS-C ORAL)^Take by mouth.^Disp: ^Rfl: calcium carbonate/vitamin D2 ([id number] ORAL)^Take by mouth.^Disp: ^Rfl: Cholecalciferol, Vitamin D3, 25 mcg (1,000 unit) cap^Take 1,000 Units by mouth once daily.^Disp: ^Rfl: omega 1-sgy-eie-fish oil (FISH OIL) 100-160-1,000 mg cap^Take 1 capsule by mouth once daily.^Disp: ^Rfl: aspirin, enteric coated (ASPIRIN, ENTERIC COATED) 81 mg EC tablet^Take 81 mg by mouth once daily.^Disp: ^Rfl: REVIEW OF SYSTEMS: Review of Systems Constitutional: Negative for chills, fever, malaise/fatigue and weight loss. HENT: Negative for hearing loss and sore throat. Eyes: Negative for blurred vision and double vision. Respiratory: Negative. Cardiovascular: Positive for chest pain and palpitations. Gastrointestinal: Negative. Genitourinary: Negative for dysuria, frequency, hematuria and urgency. Musculoskeletal: Negative. Skin: Negative. Neurological: Negative for dizziness, seizures, loss of consciousness, weakness and headaches. Endo/Heme/Allergies: Negative for environmental allergies. Does not bruise/bleed easily. Psychiatric/Behavioral: Negative for depression. PHYSICAL EXAMINATION: BP 100/70 Pulse 82 Wt 116 lb (52.6kg) SpO2 98% General: Pleasant very fit appearing woman sitting appears comfortable no apparent distress. Alert and oriented x3 HEENT: Carotid upstrokes are brisk bilateral without bruits no JVD Pulmonary: Lungs are clear no rales, wheezes, rhonchi Cardiovascular: Normal S1, S2 with regular rate and rhythm. Late systolic murmur heard over the apex. Extremities: Warm, well-perfused, no lower extremity edema. 2+ distal pulses CARDIOVASCULAR MEDICINE TESTING: [employer] Monitor 10/08/22-10/22/2022 Patient had a min HR of 48 bpm, max HR of 210 bpm, and avg HR of 71 bpm. Predominant underlying rhythm was Sinus Rhythm. 1 run of Ventricular Tachycardia occurred lasting 4 beats with a max rate of 207 bpm (avg 198 bpm). 33 Supraventricular Tachycardia runs occurred, the run with the fastest interval lasting 4 beats with a max rate of 210 bpm, the longest lasting 18.9 secs with an avg rateof 124 bpm. Isolated SVEs were rare (<1.0%), SVE Couplets were rare (<1.0%), and SVE Triplets were rare (<1.0%). Isolated VEs were rare (<1.0%), VE Couplets were are (<1.0%), and no VE Triplets were present. Ventricular Bigeminy and Trigeminy were present. Echocardiogram 10/26/2022: - The left ventricle is normal in size. Left ventricular systolic function is normal. EF = 59 5% (2D biplane) GLS= -20.5% Normal. - The right ventricle is normal in size. Right ventricular systolic function is normal. - The left atrial cavity is mildly dilated. - The visualized aorta is borderline dilated with a maximal dimension of 3.8 cm. - There is moderate (2+) late systolic mitral valve regurgitation due to prolapse. Regurgitant orifice area (PISA) is 0.18 cm . - There is mild (1+) tricuspid regurgitation. CT Chest 10/26/2022: Heart, pericardium, and thoracic vessels: The thoracic aorta and main pulmonary artery are normal in caliber. The cardiac chambers are normal in size. No coronary artery atherosclerotic calcifications are noted, although the study is not optimized for coronary assessment. No pericardial effusion or thickening. I have personally reviewed the Laboratory Testing and Echocardiogram. IMPRESSION: Ms. Farmer is a 62 year old woman with significant dyslipidemia likely familial hypercholesterolemia, mild carotid artery disease and remote testing, and moderate mitral regurgitation who is referred for evaluation. PLAN AND RECOMMENDATIONS: 1. Nonrheumatic mitral valve regurgitation - ICD9: 424.0, ICD10: I34.0 (primary diagnosis) Reviewed her echocardiogram findings with her in detail. Patient has moderate mitral regurgitation which will need to be followed with serial echocardiograms. 2. Palpitations - ICD9: 785.1, ICD10: R00.2 And is at risk for development of SVT and atrial fibrillation due to mitral regurgitation. We discussed possible beta-phani therapy. However, the patient is having minimal symptoms. I recommended careful follow-up and observation. 3. Hypercholesteremia - ICD9: 272.0, ICD10: E78.00 Most recent fasting lipid panel was reviewed. She has a prior intolerance to a statin but cannot remember which medication she was on. Based on her current fasting lipid panel I have recommended starting therapy with a goal to reduce her LDL to less than 70 mg/dL 4. Carotid atherosclerosis, bilateral - ICD9: 433.10, 433.30, ICD10: I65.23 5. Shortness of breath - ICD9: 786.05, ICD10: R06.02 6. Chest pain, unspecified type - ICD9: 786.50, ICD10: R07.9 Atypical chest pain symptoms without recurrence. There is no exertional component to her symptoms and she has had good functional capacity since her event. I recommended continuing medical therapy and risk factor modification. Ismael Price MD documented in this encounter [facility] 11-02-2022 Note HNO ID: [id number] Author: RT Shy(R) Service: ? Author Type: Technologist Type: Progress Notes Filed: 11/02/2022 1:08 PM Note Text: Radiology Service Progress Note PATIENT NAME: Ziggy Farmer DATE OF SERVICE: November 02, 2022 TIME: 1:07 PM PATIENT IDENTITY VERIFICATION COMPLETED USING TWO (2) IDENTIFIERS: Name and Date of confirmed by patient verbally. FALL SCREENING: Has the patient had 2 falls in the last year or 1 fall with injury or currently using an Ambulatory Assistive Device (Walker, Cane, Wheelchair, Crutches, etc.)? No PATIENT GENDER DATA: Female. status: : No status: NO. PATIENT RELEVANT IMPLANT DATA REVIEWED: Not Applicable RADIOLOGY DEPARTMENT: Mammography PERIPHERAL IV DATA: Not applicable SIGNED BY: RT Shy(R) November 02, 2022 1:07 PM [facility] 11-02-2022 Miscellaneous Notes November 04, 2022 PID: [id number] Ziggy Farmer [address] [place] [address] Dear Ms. Farmer, We are pleased to inform you that the results of your recent breast imaging exam on 11/02/2022 are normal. Your mammogram demonstrates that you have dense breast tissue, which could hide abnormalities. Dense breast tissue, in and of itself, is a relatively common condition. Therefore, this information is not provided to cause undue concern; rather, it is to raise your awareness and promote discussion with your health care provider regarding the presence of dense breast tissue in addition to other risk factors. Early detection of cancer is very important. We also understand recommendations regarding breast cancer screening are controversial. Please discuss with your primary care provider which strategy is best for you and whether a mammogram is right for you. Your imaging studies and report will be kept on file at [facility] as part of your permanent medical record and are available for your continuing care. Thank you for allowing us to help in meeting your health care needs. Sincerely, Dr. Tobias Interpreting Radiologist [facility] (Normal over 40) documented in this encounter [facility] 11-02-2022 History of Present illness Narrative Radiology Service Progress Note PATIENT NAME: Ziggy Farmer DATE OF SERVICE: November 02, 2022 TIME: 1:07 PM PATIENT IDENTITY VERIFICATION COMPLETED USING TWO (2) IDENTIFIERS: Name and Date of confirmed by patient verbally. FALL SCREENING: Has the patient had 2 falls in the last year or 1 fall with injury or currently using an Ambulatory Assistive Device (Walker, Cane, Wheelchair, Crutches, etc.)? No PATIENT GENDER DATA: Female. status: : No status: NO. PATIENT RELEVANT IMPLANT DATA REVIEWED: Not Applicable RADIOLOGY DEPARTMENT: Mammography PERIPHERAL IV DATA: Not applicable SIGNED BY: RT Shy(R) November 02, 2022 1:07 PM documented in this encounter [facility] 10-29-2022 Miscellaneous Notes Patient seen at [facility] ER on 10/29/2022 Patient needs to be evaluated Jj Cortes DO Patient calls and states that her left leg has been swollen for about a week. Patient reports that she now has pain in leg. Patient worried about having a blood clot. Patient states that there is not any redness to leg. Nurse Triage assessment completed with protocol recommending for disposition of See PCP in 4 hours. Care advice reviewed with patient, patient stated understanding. Patient advised to go to ED to be evaluated if she has a blood clot. Patient voiced understanding. Reason for Disposition [1] Thigh, calf, or ankle swelling AND [2] only 1 side Answer Assessment - Initial Assessment Questions 1. ONSET: A week ago 2. LOCATION: Left leg; Right side of maurer 3. SEVERITY: Moderate 4. REDNESS: Not red 5. PAIN: 6 out of 10 Patient states that it is tolerable 6. FEVER: Denies fever 7. CAUSE: Worried about blood clot 8. MEDICAL HISTORY: Mitral valve issues 9. RECURRENT SYMPTOM: Not that she can remember 10. OTHER SYMPTOMS: Chest feels tight, but she thinks that she is anxious Protocols used: Leg Swelling and [id number] documented in this encounter [facility] 10-27-2022 Miscellaneous Notes Patient notified, please assist in scheduling. Please let Ziggy know we received his echocardiogram results. His previous echocardiogram from several years ago did show both mitral valve and tricuspid valve insufficiency, and this does seem to have progressed a bit. I recommend we get him established with cardiology at this point so they can advise any further interventions vs monitoring. Please assist him to schedule appointment. Vale Claire APRN.SIDDHARTH documented in this encounter [facility] 10-26-2022 Note HNO ID: [id number] Author: RT Gail(R) Service: ? Author Type: Administrative Fellow Type: Progress Notes Filed: 10/26/2022 2:01 PM Note Text: Radiology Service Progress Note PATIENT NAME: Ziggy Farmer DATE OF SERVICE: October 26, 2022 TIME: 2:01 PM PATIENT IDENTITY VERIFICATION COMPLETED USING TWO (2) IDENTIFIERS: Name and Date of confirmed by patient verbally. FALL SCREENING: Has the patient had 2 falls in the last year or 1 fall with injury or currently using an Ambulatory Assistive Device (Walker, Cane, Wheelchair, Crutches, etc.)? No PATIENT GENDER DATA: Female. status: : No status: NO. PATIENT RELEVANT IMPLANT DATA REVIEWED: Yes RADIOLOGY DEPARTMENT: CT; Exam(s) Completed: Chest PERIPHERAL IV DATA: Not applicable SIGNED BY: RT Izabella(R) October 26, 2022 2:01 PM [facility] 10-26-2022 History of Present illness Narrative Radiology Service Progress Note PATIENT NAME: Ziggy Farmer DATE OF SERVICE: October 26, 2022 TIME: 2:01 PM PATIENT IDENTITY VERIFICATION COMPLETED USING TWO (2) IDENTIFIERS: Name and Date of confirmed by patient verbally. FALL SCREENING: Has the patient had 2 falls in the last year or 1 fall with injury or currently using an Ambulatory Assistive Device (Walker, Cane, Wheelchair, Crutches, etc.)? No PATIENT GENDER DATA: Female. status: : No status: NO. PATIENT RELEVANT IMPLANT DATA REVIEWED: Yes RADIOLOGY DEPARTMENT: CT; Exam(s) Completed: Chest PERIPHERAL IV DATA: Not applicable SIGNED BY: RT Izabella(R) October 26, 2022 2:01 PM documented in this encounter [facility] 10-12-2022 Miscellaneous Notes The following approved medication requests have been transmitted electronically. Requested Prescriptions Signed Prescriptions Disp Refills alendronate (FOSAMAX) 70 mg tablet 12 tablet 3 Sig: Take 1 tablet by mouth one time a week. Take with a full glass of water, on an empty stomach; do NOT lie down for 30minutes. Authorizing Provider: JJ CORTES DO Pt called back and she would like to try the oral fosamax. Please send prescription to [facility]. Janae Moscoso LPN Called and left a voicemail for the Patient to call back and ask for a nurse to receive the providers message. Chanel Yusuf RN The oral fosamax has a slight risk of acid reflux symptoms. Needs to take this as prescribed. With Prolia injectable or Reclast IV infusion, it can give flu like feeling for 1-2 weeks after treatment. Would definitely recheck bone density after 2 years of treatment. Can consider trial of oral medication Fosamax first. Jj Cortes DO Pt informed, verbalized understanding. Pt reports she is taking calcium, vitamin D, mag, and B12. She would like to try the rx that Dr. Cortes recommends is best. Pt would also like the side effects of both medications. Loree Fortune Please inform patient that her DEXA shows There has been an 8.2% statistically significant interval decrease in bone mineral density. 10-year Fracture Risk (FRAX): Major osteoporotic fracture risk 12% Hip fracture risk is 2.4% IMPRESSION: Osteoporosis in the lumbar spine and right femoral neck. Is she taking her supplements? Is she interested in starting on a bisphosphonate medication such as Prolia injection twice a year? Or oral Fosamax? Jj Cortes DO documented in this encounter [facility] 10-12-2022 Miscellaneous Notes Patient has been identified by name and date of : Yes, Provider Dr. Cortes Date 10/12/22 Time 4:31 pm Patient phones for refill(s): Requested Prescriptions Pending Prescriptions Disp Refills levothyroxine (SYNTHROID) 25 mcg tablet 90 tablet 3 Sig: Take 1 tablet by mouth daily before breakfast. BRAND ONLY Date of last office visit in primary care: 10/08/22 Last 2 Encounter Wt Readings: Date: Wt: 10/08/2022 51.8 kg (114 lb 3.2 oz) 07/23/2022 51.7 kg (114 lb) Previous labs/tests for medication: Thyroid: TSH Date Value 08/17/2022 1.160 mIU/L 07/29/2020 1.190 uU/mL Thank you. Janae Moscoso LPN documented in this encounter [facility] 10-08-2022 Note HNO ID: [id number] Author: Vale Claire APRN.GLASS CARRIER Service: ? Author Type: Nurse Practitioner Type: Progress Notes Filed: 10/08/2022 2:07 PM Note Text: Chief Complaint Patient presents with: Chest Pain: SOB on and off, Jaw pain, arm pain x 2 months HPI Ziggy A White is a 62 year old female who presents here today for Above Complaints. Today: Intermittent SOB, gripping tight achy pain to bilateral upper arms. Jaw pain-first time had a sharp terrible pain in her right jaw and instant very heavy pressure on her chest. called squad, took them 15 minutes to get there and then felt fine. A week ago had the pain in her jaw, labored breathing, both legs felt heavy. Took 2 baby Aspirin and felt better within 10-15 minutes. Does like to exercise, but since first episode about 2 months ago has only been able to do 10-15 minutes and then has to stop r/t heavy breathing. Has high cholesterol. Working on diet and exercise for this. Rechecking these levels again in a couple months. Has been under more stress at work than typically has been. Episodes seem to include jaw pain typically on right, gripping pain to her upper arms bilaterally, chest heaviness, SOB, tingling in legs and feet. Past medical history, appointments, medications, allergies reviewed. Previous Medical History PAST MEDICAL HISTORY Diagnosis Date Carotid atherosclerosis, bilateral 08/20/2022 mild, left 20-39%, right 0-19% Hypercholesteremia Hypothyroid Low back pain Previous Surgical History PAST SURGICAL HISTORY Procedure Laterality Date COLONOSCOPY 2008 COLONOSCOPY FLX DX W/COLLJ SPEC WHEN PFRMD 2013 Colonoscopy COLONOSCOPY FLX DX W/COLLJ SPEC WHEN PFRMD 05/01/2021 LIG/TRNSXJ FLP TUBE ABDL/VAG APPR UNI/BI 1986 Tubal ligation RECONSTR JAW,FULL,ENDO IMPLNT 10/2013 THYROID FINE NEEDLE ASPIRATION 10/07/2020 TONSILLECTOMY HX TYMPANOLYSIS TRANSCANAL 10/[address] [facility] [address] Jenkins BREAST CYST PUNCTURE ASP (AG,EU,HL,MM,SP) 2003? Family History FAMILY HISTORY Problem Relation Age of Onset No Known Problems Mother Coronary Artery Disease Father 70 No Known Problems Sister No Known Problems Sister No Known Problems Son No Known Problems Son other (MS) Other none Heart Paternal Grandfather Patient Allergies ALLERGIES No Known Allergies Current Medications Current Outpatient Medications on File Prior to Visit Medication Sig Magnesium 250 mg tab Take 250 mg by mouth. calcium carbonate/vitamin D3 (CALCIUM 600 + D ORAL) Take by mouth. Zinc Gluconate 30 mg tab Take by mouth. cyanocobalamin (VITAMIN B-12) 1,000 mcg tab Take 1,000 mcg by mouth once daily. ascorbic acid (MORRIS-C ORAL) Take by mouth. levothyroxine (SYNTHROID) 25 mcg tablet Take 1 tablet by mouth daily before breakfast. BRAND ONLY calcium carbonate/vitamin D2 ([id number] ORAL) Take by mouth. Cholecalciferol, Vitamin D3, 25 mcg (1,000 unit) cap Take 1,000 Units by mouth once daily. omega 6-tmf-jbe-fish oil (FISH OIL) 100-160-1,000 mg cap Take 1 capsule by mouth once daily. aspirin, enteric coated (ASPIRIN, ENTERIC COATED) 81 mg EC tablet Take 81 mg by mouth once daily. TURMERIC ORAL Take by mouth. No current facility-administered medications on file prior to visit. Social History Social History Tobacco Use Smoking status: Former Types: Cigarettes Quit date: 08/15/1977 Years since quittin.1 Smokeless tobacco: Never Vaping Use Vaping Use: Never used Substance Use Topics Alcohol use: No Drug use: No Review of Symptoms REVIEW OF SYSTEMS See HPI, otherwise negative EXAM: BP 110/62 (BP Site: Left Arm, BP Position: Sitting, BP Cuff Size: Regular Adult) Pulse 66 Resp 16 Wt 51.8 kg (114 lb 3.2 oz) SpO2 97% BMI 21.02 kg/m? General Appearance: Well appearing, alert, in no acute distress, well-hydrated, well nourished.. Lungs: Lungs clear to auscultation. No wheezing, rhonchi, rales.. Heart: RRR without murmur, gallop, or rubs. No ectopy. Health Maintenance List HIV SCREENING Never done DTAP,TDAP,TD(1 - Tdap) Never done DEPRESSION ASSESSMENT due on 08/15/2022 MAMMOGRAM due on 10/15/2022 INFLUENZA(1) due on 02/11/2023 COVID-19 VACCINE(1) due on 07/23/2023 ANNUAL PCP TEAM CHRONIC DISEASE VISIT due on 07/23/2023 PAP TESTING due on 05/27/2025 HPV TESTING due on 05/27/2025 DIABETES SCREEN due on 08/17/2025 COLORECTAL CANCER SCREENING due on 05/01/2026 LIPID SCREEN due on 08/17/2027 HEPATITIS C SCREENING Completed SHINGRIX VACCINE Completed Data reviewed Previous records, office notes ASSESSMENT/PLAN: 1. Chest pain, unspecified type - ICD9: 786.50, ICD10: R07.9 (primary diagnosis) Negative cardiac work up in ED. Last echo was 2015-new one ordered. Negative stress test August 2022. 14 day Zio heart monitor. Chest xray completed at [facility] on 08/18/2022 is suggestive of emphysema-no known exposure to chemicals, cigarette smoke-did smoke rarely (more content not included)... [facility] 10-08-2022 Nurse Note EVENT MONITOR DISPOSABLE PATCH INSTRUCTIONS Patient Name: Ziggy Farmer [facility] Number: [id number] Skin prepped and cleansed with alcohol Patch secured to prepped area Monitor Activated Serial #: [id number] Patient Instructed: Prescribed order timeframe Bathing guidelines Usage of event button and diary documentation Return of monitor at the end of prescribed order Call with problems [phone] or [phone] ext. [phone] Patient expresses a good understanding of instructions Loree Fortune documented in this encounter [facility] 10-08-2022 History of Present illness Narrative Chief Complaint Patient presents with: Chest Pain: SOB on and off, Jaw pain, arm pain x 2 months HPI Ziggy Farmer is a 62 year old female who presents here today for Above Complaints. Today: Intermittent SOB, gripping tight achy pain to bilateral upper arms. Jaw pain-first time had a sharp terrible pain in her right jaw and instant very heavy pressure on her chest. called squad, took them 15 minutes to get there and then felt fine. A week ago had the pain in her jaw, labored breathing, both legs felt heavy. Took 2 baby Aspirin and felt better within 10-15 minutes. Does like to exercise, but since first episode about 2 months ago has only been able to do 10-15 minutes and then has to stop r/t heavy breathing. Has high cholesterol. Working on diet and exercise for this. Rechecking these levels again in a couple months. Has been under more stress at work than typically has been. Episodes seem to include jaw pain typically on right, gripping pain to her upper arms bilaterally, chest heaviness, SOB, tingling in legs and feet. Past medical history, appointments, medications, allergies reviewed. Previous Medical History PAST MEDICAL HISTORY Diagnosis Date Carotid atherosclerosis, bilateral 08/20/2022 mild, left 20-39%, right 0-19% Hypercholesteremia Hypothyroid Low back pain Previous Surgical History PAST SURGICAL HISTORY Procedure Laterality Date COLONOSCOPY 2008 COLONOSCOPY FLX DX W/COLLJ SPEC WHEN PFRMD 2013 Colonoscopy COLONOSCOPY FLX DX W/COLLJ SPEC WHEN PFRMD 05/01/2021 LIG/TRNSXJ FLP TUBE ABDL/VAG APPR UNI/BI 1987 Tubal ligation RECONSTR JAW,FULL,ENDO IMPLNT 10/2013 THYROID FINE NEEDLE ASPIRATION 10/07/2020 TONSILLECTOMY HX TYMPANOLYSIS TRANSCANAL 10/[address] [facility] [address] Jenkins US BREAST CYST PUNCTURE ASP (AG,EU,HL,MM,SP) 2003? Family History FAMILY HISTORY Problem Relation Age of Onset No Known Problems Mother Coronary Artery Disease Father 70 No Known Problems Sister No Known Problems Sister No Known Problems Son No Known Problems Son other (MS) Other none Heart Paternal Grandfather Patient Allergies ALLERGIES No Known Allergies Current Medications Current Outpatient Medications on File Prior to Visit Medication Sig Magnesium 250 mg tab Take 250 mg by mouth. calcium carbonate/vitamin D3 (CALCIUM 600 + D ORAL) Take by mouth. Zinc Gluconate 30 mg tab Take by mouth. cyanocobalamin (VITAMIN B-12) 1,000 mcg tab Take 1,000 mcg by mouth once daily. ascorbic acid (MORRIS-C ORAL) Take by mouth. levothyroxine (SYNTHROID) 25 mcg tablet Take 1 tablet by mouth daily before breakfast. BRAND ONLY calcium carbonate/vitamin D2 ([id number]-715-B ORAL) Take by mouth. Cholecalciferol, Vitamin D3, 25 mcg (1,000 unit) cap Take 1,000 Units by mouth once daily. omega 9-mpk-uws-fish oil (FISH OIL) 100-160-1,000 mg cap Take 1 capsule by mouth once daily. aspirin, enteric coated (ASPIRIN, ENTERIC COATED) 81 mg EC tablet Take 81 mg by mouth once daily. TURMERIC ORAL Take by mouth. No current facility-administered medications on file prior to visit. Social History Social History Tobacco Use Smoking status: Former Types: Cigarettes Quit date: 08/15/1977 Years since quittin.1 Smokeless tobacco: Never Vaping Use Vaping Use: Never used Substance Use Topics Alcohol use: No Drug use: No Review of Symptoms REVIEW OF SYSTEMS See HPI, otherwise negative EXAM: BP 110/62 (BP Site: Left Arm, BP Position: Sitting, BP Cuff Size: Regular Adult) Pulse 66 Resp 16 Wt 51.8 kg (114 lb 3.2 oz) SpO2 97% BMI 21.02 kg/m General Appearance: Well appearing, alert, in no acute distress, well-hydrated, well nourished.. Lungs: Lungs clear to auscultation. No wheezing, rhonchi, rales.. Heart: RRR without murmur, gallop, or rubs. No ectopy. Health Maintenance List HIV SCREENING Never done DTAP,TDAP,TD(1 - Tdap) Never done DEPRESSION ASSESSMENT due on 08/15/2022 MAMMOGRAM due on 10/15/2022 INFLUENZA(1) due on 02/11/2023 COVID-19 VACCINE(1) due on 07/23/2023 ANNUAL PCP TEAM CHRONIC DISEASE VISIT due on 07/23/2023 PAP TESTING due on 05/27/2025 HPV TESTING due on 05/27/2025 DIABETES SCREEN due on 08/17/2025 COLORECTAL CANCER SCREENING due on 05/01/2026 LIPID SCREEN due on 08/17/2027 HEPATITIS C SCREENING Completed SHINGRIX VACCINE Completed Data reviewed Previous records, office notes ASSESSMENT/PLAN: 1. Chest pain, unspecified type - ICD9: 786.50, ICD10: R07.9 (primary diagnosis) Negative cardiac work up in ED. Last echo was 2015-new one ordered. Negative stress test August 2022. 14 day Zio heart monitor. Chest xray completed at [facility] on 08/18/2022 is suggestive of emphysema-no known exposure to chemicals, cigarette smoke-did smoke rarely as a teenager-obtain CT chest due to report from xray and current sx. Suspect stress, anxiety to be component of sx. Discussed red flag s/s. - ECHO - PERFLUTREN LIPID MICROSPHERES 1.1 MG/ML INJECTION IN NS 10 ML - SODIUM CHLORIDE 0.9 % (FLUSH) INJECTION SYRINGE - OUTSIDE VENDOR CARDIAC OUTPATIENT EXTENDED RHYTHM RECORDING (WITHOUT TELEMETRY) - CT CHEST WO IVCON 2. Palpitations - ICD9: 785.1, ICD10: R00.2 Negative cardiac work up in ED. Last echo was 2016-new one ordered. Negative stress test August 2022. 14 day Zio heart monitor. Chest xray completed at [facility] on 08/18/2022 is suggestive of emphysema-no known exposure to chemicals, cigarette smoke-did smoke rarely as a teenager-obtain CT chest due to report from xray and current sx. Suspect stress, anxiety to be component of sx. Discussed red flag s/s. - ECHO - PERFLUTREN LIPID MICROSPHERES 1.1 MG/ML INJECTION IN NS 10 ML - SODIUM CHLORIDE 0.9 % (FLUSH) INJECTION SYRINGE - OUTSIDE VENDOR CARDIAC OUTPATIENT EXTENDED RHYTHM RECORDING (WITHOUT TELEMETRY) - CT CHEST WO IVCON 3. Shortness of breath - ICD9: 786.05, ICD10: R06.02 Negative cardiac work up in ED. Last echo was 2016-new one ordered. Negative stress test August 2022. 14 day Zio heart monitor. Chest xray completed at [facility] on 08/18/2022 is suggestive of emphysema-no known exposure to chemicals, cigarette smoke-did smoke rarely as a teenager-obtain CT chest due to report from xray and current sx. Suspect stress, anxiety to be component of sx. Discussed red flag s/s. - ECHO - PERFLUTREN LIPID MICROSPHERES 1.1 MG/ML INJECTION IN NS 10 ML - SODIUM CHLORIDE 0.9 % (FLUSH) INJECTION SYRINGE - OUTSIDE VENDOR CARDIAC OUTPATIENT EXTENDED RHYTHM RECORDING (WITHOUT TELEMETRY) - CT CHEST WO IVCON 4. Numbness and tingling of both legs - ICD9: 782.0, ICD10: R20.0, R20.2 Negative cardiac work up in ED. Last echo was 2016-new one ordered. Negative stress test August 2022. day Zio heart monitor. Chest xray completed at [facility] on 08/18/2022 is suggestive of emphysema-no known exposure to chemicals, cigarette smoke-did smoke rarely as a teenager-obtain CT chest due to report from xray and current sx. Suspect stress, anxiety to be component of sx. Discussed red flag s/s. - ECHO - PERFLUTREN LIPID MICROSPHERES 1.1 MG/ML INJECTION IN NS 10 ML - SODIUM CHLORIDE 0.9 % (FLUSH) INJECTION SYRINGE - OUTSIDE VENDOR CARDIAC OUTPATIENT EXTENDED RHYTHM RECORDING (WITHOUT TELEMETRY) - CT CHEST WO IVCON 5. Jaw pain - ICD9: 784.92, ICD10: R68.84 Negative cardiac work up in ED. Last echo was 2015-new one ordered. Negative stress test August 2022. day Zio heart monitor. Chest xray completed at [facility] on 08/18/2022 is suggestive of emphysema-no known exposure to chemicals, cigarette smoke-did smoke rarely as a teenager-obtain CT chest due to report from xray and current sx. Suspect stress, anxiety to be component of sx. Discussed red flag s/s. - ECHO - PERFLUTREN LIPID MICROSPHERES 1.1 MG/ML INJECTION IN NS 10 ML - SODIUM CHLORIDE 0.9 % (FLUSH) INJECTION SYRINGE - OUTSIDE VENDOR CARDIAC OUTPATIENT EXTENDED RHYTHM RECORDING (WITHOUT TELEMETRY) - CT CHEST WO IVCON 6. Pain in both upper arms - ICD9: 729.5, ICD10: M79.621, M79.622 Negative cardiac work up in ED. Last echo was 2015-new one ordered. Negative stress test August 2022. day Zio heart monitor. Chest xray completed at [facility] on 08/18/2022 is suggestive of emphysema-no known exposure to chemicals, cigarette smoke-did smoke rarely as a teenager-obtain CT chest due to report from xray and current sx. Suspect stress, anxiety to be component of sx. Discussed red flag s/s. - ECHO - PERFLUTREN LIPID MICROSPHERES 1.1 MG/ML INJECTION IN NS 10 ML - SODIUM CHLORIDE 0.9 % (FLUSH) INJECTION SYRINGE - OUTSIDE VENDOR CARDIAC OUTPATIENT EXTENDED RHYTHM RECORDING (WITHOUT TELEMETRY) - CT CHEST WO IVCON 7. Stress - ICD9: V62.89, ICD10: F43.9 Negative cardiac work up in ED. Last echo was 2015-new one ordered. Negative stress test August 2022. 14 day Zio heart monitor. Chest xray completed at [facility] on 08/18/2022 is suggestive of emphysema-no known exposure to chemicals, cigarette smoke-did smoke rarely as a teenager-obtain CT chest due to report from xray and current sx. Suspect stress, anxiety to be component of sx. Discussed red flag s/s. - ECHO - PERFLUTREN LIPID MICROSPHERES 1.1 MG/ML INJECTION IN NS 10 ML - SODIUM CHLORIDE 0.9 % (FLUSH) INJECTION SYRINGE - OUTSIDE VENDOR CARDIAC OUTPATIENT EXTENDED RHYTHM RECORDING (WITHOUT TELEMETRY) - CT CHEST WO IVCON Vale Claire APRN.CNP Medical Decision Making: Problems: Moderate: New problem with uncertain prognosis Data: Unique source(s) for external note(s) reviewed: 1 Unique test result(s) reviewed: 1 Risk: Moderate: Moderate risk from testing/treatment Medical Decision Making Level: 4 - Moderate documented in this encounter [facility] 10-07-2022 Miscellaneous Notes Noted, agree with below. Vale Claire APRN.CNP Patient was seen at [facility] ER on 09/07/2022 for sharp jaw pain and instant chest pressure. Patient states that she thought she was having a heart attack. Patient was cleared and sent home after 3 hours. Patient reports that chest pain continues off and on lasting about 5 minutes. Patient has only had a couple instances of jaw pain. Last week she started feeling lightheaded and had a hard time breathing. She took 2 81 mg baby aspirin and laid down. After about 10 minutes she was feeling better. Patient states that she also has been getting pains down one arm and sometimes both arms. Patient reports that about 6 months ago he hit her head hard on an object. She did not have office visit or ER visit for this because she ended up having a bump on her head and she figured that since it went out she would be ok. Patient reports that since then she wakes up with headaches every morning. Nursing Triage is recommending for patient to see PCP in 24 hours. Patient set up appointment with Vale tomorrow afternoon. Went over recommendations, patient voiced understanding. Advised patient that if symptoms persist or get worse then she needs to go back to ER to be re-evaluated. Patient voiced understanding. Reason for Disposition [1] Chest pain lasts > 5 minutes AND [2] occurred > 3 days ago (72 hours) AND [3] NO chest pain or cardiac symptoms now Answer Assessment - Initial Assessment Questions 1. LOCATION: Left side middle of chest 2. RADIATION: 6 weeks ago, jaw pain; Last week light headed and shortness of breath 3. ONSET: Has been going on for about 4-6 weeks off and; Was in [facility] ER and heart tests rand 4. PATTERN Pain is of and on. 5. DURATION: 5-10 minutes 6. SEVERITY: Normally pain is not as bad, it goes away. She has had 2 spells where she felt she was had a heart attack 7. CARDIAC RISK FACTORS: High cholesterol; dad had heart disease 8. PULMONARY RISK FACTORS: Denies 9. CAUSE: Unsure 10. OTHER SYMPTOMS: Dizziness, difficulty breathing Protocols used: Chest Ctme-LNMHB-VS Tried to Call patient to triage regarding chest pain (see my chart message). Left message for patient to call back and speak with triage nurse. Yumiko Kramer RN documented in this encounter [facility] 09-27-2022 Note HNO ID: [id number] Author: RT Larry(R) Service: ? Author Type: Technologist Type: Progress Notes Filed: 09/27/2022 1:41 PM Note Text: Radiology Service Progress Note PATIENT NAME: Ziggy Farmer DATE OF SERVICE: September 27, 2022 TIME: 1:27 PM PATIENT IDENTITY VERIFICATION COMPLETED USING TWO (2) IDENTIFIERS: Name and Date of confirmed by patient verbally. FALL SCREENING: Has the patient had 2 falls in the last year or 1 fall with injury or currently using an Ambulatory Assistive Device (Walker, Cane, Wheelchair, Crutches, etc.)? No PATIENT GENDER DATA: Female. status: : No status: NO. PATIENT RELEVANT IMPLANT DATA REVIEWED: Not Applicable RADIOLOGY DEPARTMENT: Bone Density PERIPHERAL IV DATA: Not applicable SIGNED BY: RT Larry(R) September 27, 2022 1:27 PM [facility] 09-27-2022 History of Present illness Narrative Radiology Service Progress Note PATIENT NAME: Ziggy Farmer DATE OF SERVICE: September 27, 2022 TIME: 1:27 PM PATIENT IDENTITY VERIFICATION COMPLETED USING TWO (2) IDENTIFIERS: Name and Date of confirmed by patient verbally. FALL SCREENING: Has the patient had 2 falls in the last year or 1 fall with injury or currently using an Ambulatory Assistive Device (Walker, Cane, Wheelchair, Crutches, etc.)? No PATIENT GENDER DATA: Female. status: : No status: NO. PATIENT RELEVANT IMPLANT DATA REVIEWED: Not Applicable RADIOLOGY DEPARTMENT: Bone Density PERIPHERAL IV DATA: Not applicable SIGNED BY: RT Larry(R) September 27, 2022 1:27 PM documented in this encounter [facility] 08-27-2022 Miscellaneous Notes Spoke with patient regarding reminder for stress test on Tuesday and given instructions documented in this encounter [facility] 08-23-2022 Miscellaneous Notes Pt informed, verbalized understanding Loree Collier Ma Recheck lipid panel in 3 months. Orders are placed. Thank you, Nargis Jimenez APRN.SIDDHARTH Patient notified of results and provider's instructions. Patient verbalizes understanding. Patient states that would like to try diet and exercise before starting new medication. Patient asking when she should come in to have lipid panel reassessed? Also patient states that she has been taking Vitamin D3 6,000 international units a day. Patient states that she will try and cut it down to 5,000 international units daily. Patient states that she does check My Chart and that messages can be left to her via My Chart. Yumiko Kramer RN VM left for pt to call PCP office for message. Cristina Lopez RN Please inform patient that her cholesterol levels are still high but are improving. Keep up the dietary changes and restriction of fatty/fried/fast foods. Increase fluid in diet and green vegetables and fresh fruit intake. If she wants to start Crestor 10 mg a day, let me know. Otherwise continue healthy diet and exercise. Her thyroid labs are overall stable. Her vitamin D levels are a little high. Would recommend cutting down on dose by 1000 international unit(s) a day less. Other labs are all normal overall. Jj Cortes DO documented in this encounter [facility] 07-26-2022 History of Present illness Narrative CC: Ziggy Farmer is a 62 year old female who presents to the office for physical HPI: Does get occasional LH/dizziness symptoms, occasional palpitations, with exertion as well as rest. No previous hx of CAD or heart disease that she is aware of. Hasn't had a stress test in the past. Denies any obvious chest pressure or pain. Does occasionally also feel short of breath with exertion such as up and down flights of steps. Hypothyroidism, taking synthroid 25 mcg daily as prescribed Also taking vitamins and supplements for general health and for osteoporosis including calcium and vitamin D. She hasn't been doing a lot of weight bearing exercise although needs to restart this. HPL, not interested in statin therapy Swollen lymph node, side of right neck for 2 weeks now, did have URI with sinus pressure and congestion and PND, these other symptoms are now resolved. Did have fever and chills- now resolved. PAST MEDICAL HISTORY Diagnosis Date Hypercholesteremia Hypothyroid Low back pain PAST SURGICAL HISTORY Procedure Laterality Date COLONOSCOPY 2008 COLONOSCOPY FLX DX W/COLLJ SPEC WHEN PFRMD 2013 Colonoscopy COLONOSCOPY FLX DX W/COLLJ SPEC WHEN PFRMD 05/01/2021 LIG/TRNSXJ FLP TUBE ABDL/VAG APPR UNI/BI 1987 Tubal ligation RECONSTR JAW,FULL,ENDO IMPLNT 10/2013 THYROID FINE NEEDLE ASPIRATION 10/07/2020 TONSILLECTOMY HX TYMPANOLYSIS TRANSCANAL 10/[address] [facility] [address] Jenkins US BREAST CYST PUNCTURE ASP (AG,EU,HL,MM,SP) 2003? Social History: Social History Tobacco Use Smoking status: Former Types: Cigarettes Quit date: 08/15/1977 Years since quittin.9 Smokeless tobacco: Never Vaping Use Vaping Use: Never used Substance Use Topics Alcohol use: No Drug use: No FAMILY HISTORY Problem Relation Age of Onset No Known Problems Mother Coronary Artery Disease Father 70 No Known Problems Sister No Known Problems Sister No Known Problems Son No Known Problems Son other (MS) Other none Heart Paternal Grandfather Current Outpatient prescriptions: levothyroxine (SYNTHROID) 25 mcg tablet Take 1 tablet by mouth daily before breakfast. BRAND ONLY calcium carbonate/vitamin D2 (GZMZTZU-179-A ORAL) Take by mouth. Cholecalciferol, Vitamin D3, (VITAMIN D) 25 mcg (1,000 unit) cap Take 1,000 Units by mouth once daily. omega 1-tvz-mar-fish oil (FISH OIL) 100-160-1,000 mg cap Take 1 capsule by mouth once daily. aspirin, enteric coated (ASPIRIN, ENTERIC COATED) 81 mg EC tablet Take 81 mg by mouth once daily. Magnesium 250 mg tab Take 250 mg by mouth. calcium carbonate/vitamin D3 (CALCIUM 600 + D ORAL) Take by mouth. Zinc Gluconate 30 mg tab Take by mouth. cyanocobalamin (VITAMIN B-12) 1,000 mcg tab Take 1,000 mcg by mouth once daily. ascorbic acid (MORRIS-C ORAL) Take by mouth. amoxicillin (AMOXIL) 875 mg tablet Take 1 tablet by mouth twice daily for 10 days. TURMERIC ORAL Take by mouth. Allergies: ALLERGIES No Known Allergies ROS: See HPI PE: 07/23/22 1331 BP: 118/70 Pulse: 60 Resp: 16 Temp: 36.9 C (98.4 F) TempSrc: Left Tympanic Weight: 51.7 kg (114 lb) Height: 157 cm (5' 1.81 ) Gen: A&O, NAD, non-toxic appearing, Pleasant, cooperative HEENT: NT/AC, PERRLA, EOMs intact b/l, nares clear and patent b/l, pharynx without erythema, exudate or lesions. Uvula midline. EACs without erythema or debris. TMs pearly bashir with intact landmarks b/l. Neck: supple, + right anterior mid cervical Tender enlarged lymph node without any other obvious cervical LAD, no thyromegaly, + ? right carotid bruits CV: RRR, normal S1 and S2, no murmurs, no gallops, no rubs, Pulses 2+ and symmetric in UE and LE b/l Lungs: normal respiratory effort, CTA b/l, no wheezing or rhonchi or rales Abd: soft, NT, ND, +BS, no hepatosplenomegaly MS: FROM all 4 extremities Neuro: CN II-XII intact b/l, strength 5/5 b/l UE and LE, DTRs 2/4 UE and LE, sensation intact. Skin: warm, dry, intact, No rashes or lesions on exposed skin. ASSESSMENT/PLAN: 1. Dyslipidemia - ICD9: 272.4, ICD10: E78.5 (primary diagnosis) - to be determined upon return of lab results - Encouraged following a low fat, low cholesterol diet. - Discussed the benefits of regular aerobic exercise and weight loss. - ECG COMPLETE - EXERCISE STRESS ECG (WITHOUT IMAGING) - US CAROTID ARTERIES [facility] 2. Encounter for screening mammogram for malignant neoplasm of breast - ICD9: V76.12, ICD10: Z12.31 - Set up for mammogram, yearly mammogram recommended - Encouraged monthly BSE - Increase calcium intake with supplements or by diet (goal of 5106-0467 mg/day - Set up for bone mineral density - LAURIE SCREENING 3. Age-related osteoporosis without current pathological fracture - ICD9: 733.01, ICD10: M81.0 - set up for BMD AP Spine and Hip Unilateral - Reviewed the need for Calcium and Vitamin D supplements and weight bearing exercise as tolerated - DXA-AXIAL SKELETON 4. Thyroid nodule - ICD9: 241.0, ICD10: E04.1 F/u with repeat testing with specialist. 5. Hypothyroidism, unspecified type - ICD9: 244.9, ICD10: E03.9 - Instructed patient on importance of taking on an empty stomach either first thing in the morning or at bedtime. Stable - Behavioral intervention, - Pharmacological intervention, and - Continue current medications - TSH BLD - T4 FREE/FREE THYROX - T3 FREE BLD 6. Hypercholesteremia - ICD9: 272.0, ICD10: E78.00 Recheck labs as ordered. - COMP METABOLIC PANEL - LIPID PANEL BASIC - CBC + DIFF 7. Well adult exam - ICD9: V70.0, ICD10: Z00.00 - Counseled on healthy diet and regular exercise - Calcium intake with supplements or by diet of 1000 mg/day for under 50, 8844-9040 mg/day for 50+ - Mammogram ordered - exam recommended once yearly - Bone mineral density ordered - COMP METABOLIC PANEL - LIPID PANEL BASIC - CBC + DIFF - TSH BLD - T4 FREE/FREE THYROX - T3 FREE BLD - VITAMIN D 25 HYDROXY - VITAMIN B12 BLOOD 8. Cervical lymphadenitis - ICD9: 289.3, ICD10: I88.9 rx as below, did have URI - AMOXICILLIN 875 MG TABLET 9. Palpitations - ICD9: 785.1, ICD10: R00.2 Need for ECG and stress testing and carotid artery testing as ordered, unsure of cause. - ECG COMPLETE - EXERCISE STRESS ECG (WITHOUT IMAGING) 10. Lightheadedness - ICD9: 780.4, ICD10: R42 Need for ECG and stress testing and carotid artery testing as ordered, unsure of cause. - ECG COMPLETE - EXERCISE STRESS ECG (WITHOUT IMAGING) - US CAROTID ARTERIES [facility] Jj Cortes, DO To ER if develops chest pain, shortness of breath, or severe worsening of symptoms. Discussed risks, benefits, alternatives, and potential side effects of medications. Patient expressed understanding and agreed with the plan. Jj Cortes DO [address] [place] [address] documented in this encounter [facility] 01-21-2022 Note Plan of Care Patient instructed to call if problems. Discussed plan of care with: patient Patient/caregiver agreeable with plan of care. Assessment Patient reports good daily practice of HEP including flow phonation(all steps), easy onset with initial [h]words and CTT training targeting increased diaphragmatic breath support with provided conversational phrases. Patient reports improvement everyday in exercise performance ease and carryover to her speaking voce. Monitored performance with all of the above. Min cues needed. Patient was instructed to use RTB and sips of water to release supraglottic compression when MTD was triggered. This occurred a few times throughout the session associated with increased volume and use of a fast speaking rate. Strategies were effective in resetting the laryngeal muscles and voice quality. Patient cautioned against throat clearing to reset the laryngeal muscles. Introduced habitation tasks. Patient stated she is already self monitoring and correcting her speaking voice during conversation effectively and as a result she feels her voice is basically back to baseline. Encouraged continued daily practice to solidify her muscle memory and reduce the risk of regressing back to MTD. Patient in agreement. Reduced noticeable tremor with improved breath support. Occasional pitch breaks noted in upper range. Unsure if MTD vs spasmodic dysphonia. Patient to monitor and [facility] should the tremor and/or breaks worsen. Voice: Voice quality based on the GRBAS scale: 0=absent; 1=mild; 2=moderate; 3=severe Grade: 1-2 Roughness: 1 Breathiness: 0 Asthenia: 0 Strain: 1-2 (+ glottal martínez) Voice: level 5 initial Reason For Visit An interactive audio and video telecommunication system which permits real time communications between the patient (at the originating site) and provider (at the distant site) was utilized to provide this telehealth service. Verbal consent was requested and obtained from ZIGGY FARMER on this date, 01/21/2022 01:00 PM , for a telehealth visit. Adult Risk Screening Initial Fall Risk Screening: ZIGGY has not fallen in the last 6 months. Pain Scale: On a scale of 0 to 10, the patient rates the pain at 0. Rico Learner(s) are identified by the patient as person(s) most likely to participate in providing care, such as managing medications or taking them to doctors? appointments. Primary Language for learning: spanish. Insurance Insurance reviewed Visit number: 3 Onset Date: 2021 Subjective Living Environment: home - patient lives with spouse. Patient arrival: independent Patient alert and ready to participate in telehealth visit this date. Objective Progress to date: alf goals: Improve overall vocal health to foster increased participation levels at home, work and in the community environment. Short term goals: Patient will increase vocal wellness and decrease phono trauma in adherence with clinician prescribed vocal hygiene and wellness program per patient report 80% of his/her day. MET Patient will increase ability to produce voice without tension within 5 minute conversational task x 80% accuracy as judged by clinician observation and/or patient report. MET Patient will demonstrate independent use of voice/ techniques x 80% accuracy. MET Patient will increase the balance of the respiratory/laryngeal musculature x 80% accuracy. MET Treatment Time in clinic started at 1305 Time in clinic ended at 1325 Total time in clinic is 20 minutes. Provided to: patient Response to education: verbalized understanding and demonstrated understanding Patient/caregiver verbalized understanding and agreement: yes Limited Codes ([facility] Only): [id number] Speech language treatment limited. Signatures Electronically signed by : Annita Mario CCC-FARM GENERAL MANAGER; Jan 21 2022 3:30PM EST (Author) [email or web address] 01-15-2022 Miscellaneous Notes Patient calls to check on status of refill request. Patient instructed to call [facility] to reorder. Current prescription should have 3 refills. Barbara Saenz RN documented in this encounter [facility] 01-15-2022 Miscellaneous Notes Patient has refills on current prescription. Ordered 10/08/2021 90 day supply with 3 refills. Barbara Saenz RN documented in this encounter [facility] 01-04-2022 Note Plan of Care Continue Current Plan of Care Progress with POC, as tolerated. Discussed plan of care with: patient Patient/caregiver agreeable with plan of care. Assessment Initiated voice retraining to improve diaphragmatic breath support and unload supraglottic compression associated with speech via flow phonation(all steps). Multimodality cueing, instruction in proper posture and repeated trials improved patient performance accuracy. With task and improved breath support mild tremor was noted as well as questionable mixed SD. Will monitor Encouraged home practice several times a day for limited duration. Introduced CTT training as well targeting increased diaphragmatic breath support at the word (initial [h] words) and phrase levels. Model provided and accurate follow through confirmed with 80% accuracy words and 60% accuracy phrases. Initial [h] words and conversational phrases emailed along with flow phonation tasks for daily home practice. Voice: Voice quality based on the GRBAS scale: 0=absent; 1=mild; 2=moderate; 3=severe Grade: 1-2 Roughness: 1 Breathiness: 0 Asthenia: 0 Strain: 1-2 (+ glottal martínez) Voice: level 5 initial Reason For Visit An interactive audio and video telecommunication system which permits real time communications between the patient (at the originating site) and provider (at the distant site) was utilized to provide this telehealth service. Verbal consent was requested and obtained from ZIGGY FARMER on this date, 01/04/2022 01:00 PM , for a telehealth visit. Adult Risk Screening There are no spiritual/cultural practices/values/needs that are important to know Initial Fall Risk Screening: ZIGGY has not fallen in the last 6 months. ZIGGY does not have a fear of falling. She does not need assistance with sitting, standing or walking. Does not need assistance walking in her home. She does not need assistance in an unfamiliar setting. The patient is not using an assistive device. Domestic Violence Screen: Does not feel threatened or abused physically, emotionally or sexually. Do you feel UNSAFE? The patient feels safe in the home. Depression/Suicide Screening: During the past 2 weeks, the patient has not felt down, depressed or hopeless. During the past 2 weeks, the patient has not felt little interest or pleasure in doing things. She does not have a risk of suicide. She has not had thoughts of harming others. Rico Learner(s) are identified by the patient as person(s) most likely to participate in providing care, such as managing medications or taking them to doctors? appointments. Primary Language for learning: spanish. Insurance Insurance reviewed Visit number: 2 Onset Date: 2021 Subjective Living Environment: home - patient lives with spouse. Patient arrival: independent Patient alert and ready to participate in telehealth visit this date. 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 Short term goals: Patient will increase vocal wellness and decrease phono trauma in adherence with clinician prescribed vocal hygiene and wellness program per patient report 80% of his/her day. Patient will increase ability to produce voice without tension within 5 minute conversational task x 80% accuracy as judged by clinician observation and/or patient report. Patient will demonstrate independent use of voice/ techniques x 80% accuracy. Patient will increase the balance of the respiratory/laryngeal musculature x 80% accuracy. Treatment Time in clinic started at 1300 Time in clinic ended at 1335 Total time in clinic is 35 minutes. Provided to: patient Response to education: verbalized understanding, demonstrated understanding and needs reinforcement Patient/caregiver verbalized understanding and agreement: yes CPT Code 45877 Treatment of speech, language AND voice Signatures Electronically signed by : Annita Mario CCC-FARM GENERAL MANAGER; Jan 04 2022 4:08PM EST (Author) [email or web address] 01-04-2022 Reason for visit Narrative An interactive audio and video telecommunication system which permits real time communications between the patient (at the originating site) and provider (at the distant site) was utilized to provide this telehealth service.Verbal consent was requested and obtained from ZIGGY FARMER on this date, 01/04/2022 01:00 PM , for a telehealth visit. [facility] [address] [place] Work Phone: 12-21-2021 History of Present illness Narrative Chief Complaint Patient presents with: Finger Pain: swollen and achy HPI Ziggy Farmer is a 61 year old female who presents here today for Above Complaints. Today: Stoved her middle finger on her left hand, about 6 weeks ago, playing card game [employer]. Is still pretty achy, bruised, swollen. No pain, but achy. Has used ice and antiinflammatories, which have helped somewhat. Past medical history, appointments, medications, allergies reviewed. Previous Medical History PAST MEDICAL HISTORY Diagnosis Date Hypercholesteremia Hypothyroid Low back pain Previous Surgical History PAST SURGICAL HISTORY Procedure Laterality Date COLONOSCOPY 2008 COLONOSCOPY FLX DX W/COLLJ SPEC WHEN PFRMD 2013 Colonoscopy COLONOSCOPY FLX DX W/COLLJ SPEC WHEN PFRMD 05/01/2021 LIG/TRNSXJ FLP TUBE ABDL/VAG APPR UNI/BI 1986 Tubal ligation RECONSTR JAW,FULL,ENDO IMPLNT 10/2013 THYROID FINE NEEDLE ASPIRATION 10/07/2020 TONSILLECTOMY HX TYMPANOLYSIS TRANSCANAL 10/[address] [facility] [address] Jenkins US BREAST CYST PUNCTURE ASP (AG,EU,HL,MM,SP) 2003? Family History FAMILY HISTORY Problem Relation Age of Onset No Known Problems Mother Coronary Artery Disease Father 70 No Known Problems Sister No Known Problems Sister No Known Problems Son No Known Problems Son other (MS) Other none Heart Paternal Grandfather Patient Allergies ALLERGIES No Known Allergies Current Medications Current Outpatient Medications on File Prior to Visit Medication Sig levothyroxine (SYNTHROID) 25 mcg tablet Take 1 tablet by mouth daily before breakfast. BRAND ONLY TURMERIC ORAL Take by mouth. calcium carbonate/vitamin D2 ([id number] ORAL) Take by mouth. Cholecalciferol, Vitamin D3, (VITAMIN D) 25 mcg (1,000 unit) cap Take 1,000 Units by mouth once daily. omega 7-dlx-bum-fish oil (FISH OIL) 100-160-1,000 mg cap Take 1 capsule by mouth once daily. aspirin, enteric coated (ASPIRIN, ENTERIC COATED) 81 mg EC tablet Take 81 mg by mouth once daily. MULTI-VITAMIN ORAL Take by mouth. (Patient not taking: Reported on 10/21/2021 ) multivitamin tablet Take 1 tablet by mouth once daily. (Patient not taking: Reported on 10/21/2021 ) ergocalciferol, vitamin D2, (VITAMIN D2 ORAL) Take 1 tablet by mouth once daily. (Patient not taking: Reported on 10/21/2021 ) naproxen sodium (ALEVE) 220 mg cap Take 4 capsules by mouth. 2 in am 2 in pm cyclobenzaprine (FLEXERIL) 10 mg tablet Take 0.5-1 tablets by mouth three times daily as needed for Muscle Spasm. (Patient not taking: Reported on 10/21/2021 ) No current facility-administered medications on file prior to visit. Social History Social History Tobacco Use Smoking status: Former Smoker Quit date: 08/15/1977 Years since quittin.3 Smokeless tobacco: Never Used Vaping Use Vaping Use: Never used Substance Use Topics Alcohol use: No Drug use: No Review of Symptoms REVIEW OF SYSTEMS See HPI, otherwise negative EXAM: BP 100/68 (BP Site: Left Arm, BP Position: Sitting, BP Cuff Size: Regular Adult) Pulse 73 Resp 16 Wt 52.6 kg (116 lb) SpO2 99% BMI 21.22 kg/m Extremities: Swelling and ecchymosis to middle finger of left hand. Mildly decreased ROM to this finger. Swelling contained to PIP. Health Maintenance List COVID-19 VACCINE(1) Never done HIV SCREENING Never done DTAP,TDAP,TD(1 - Tdap) Never done INFLUENZA(Season Ended) due on 04/15/2022 ANNUAL PCP TEAM CHRONIC DISEASE VISIT due on 04/27/2022 DEPRESSION SCREENING due on 04/27/2022 MAMMOGRAM due on 10/15/2022 DIABETES SCREEN due on 10/21/2023 PAP TESTING due on 05/27/2025 HPV TESTING due on 05/27/2025 LIPID SCREEN due on 01/22/2026 COLORECTAL CANCER SCREENING due on 05/01/2026 HEPATITIS C SCREENING Completed SHINGRIX VACCINE Completed MENINGOCOCCAL CONJUGATE Aged Out Data reviewed Previous records, office notes, imaging. ASSESSMENT/PLAN: 1. Injury of finger of left hand, initial encounter - ICD9: 959.5, ICD10: S69.92XA Injury to left middle finger at PIP joint. Suspect sprain, but given extended period of time since injury, will complete xray to r/o fracture. If xray negative, she will support with jamir taping if able, continue with icing and intermittent antiinflammatories; at that point will likely resolve on its own without further intervention. - XR DIGIT GENERAL 3V FRONTAL/LAT/OBL LEFT Vale Claire APRN.SIDDHARTH documented [facility] encounter [facility] Diagnosis Thyroid nodule Nontoxic uninodular goiter [facility] Diagnosis Thyroid nodule Nontoxic uninodular goiter [facility] Diagnosis Well adult exam- Primary Routine general medical examination at a health care facility Dyslipidemia Other and unspecified hyperlipidemia Encounter for screening mammogram for malignant neoplasm of breast Other screening mammogram Age-related osteoporosis without current pathological fracture Senile osteoporosis Thyroid nodule Nontoxic uninodular goiter Hypothyroidism, unspecified type Hypercholesteremia Pure hypercholesterolemia Cervical lymphadenitis Lymphadenitis, unspecified, except mesenteric Palpitations Lightheadedness Dizziness and giddiness [facility] Diagnosis Dyslipidemia- Primary Other and unspecified hyperlipidemia [facility]* Diagnosis Dyslipidemia Other and unspecified hyperlipidemia Palpitations Lightheadedness Dizziness and giddiness [facility]* Diagnosis Chest pain, unspecified type- Primary Palpitations Shortness of breath Numbness and tingling of both legs Disturbance of skin sensation Jaw pain Pain in both upper arms Stress Other psychological or physical stress, not elsewhere classified [facility]* Diagnosis Thyroid nodule Nontoxic uninodular goiter [facility]* Diagnosis Shortness of breath- Primary Palpitations Chest pain, unspecified type Acquired tricuspid valve insufficiency Diseases of tricuspid valve Mitral valve insufficiency, acquired Mitral valve disorders [facility] Diagnosis Nonrheumatic mitral valve regurgitation- Primary Palpitations Hypercholesteremia Pure hypercholesterolemia Carotid atherosclerosis, bilateral Shortness of breath Chest pain, unspecified type Acquired tricuspid valve insufficiency Diseases of tricuspid valve Mitral valve insufficiency, acquired Mitral valve disorders [facility]* Diagnosis Hypercholesteremia- Primary Pure hypercholesterolemia Thyroid nodule Nontoxic uninodular goiter Vitamin D deficiency Unspecified vitamin D deficiency Shortness of breath Mitral valve insufficiency, acquired Mitral valve disorders Hypothyroidism, unspecified type [facility]* Diagnosis Thyroid nodule Nontoxic uninodular goiter [facility]* Diagnosis Chest pain, unspecified type Palpitations Shortness of breath Numbness and tingling of both legs Disturbance of skin sensation Stress Other psychological or physical stress, not elsewhere classified Jaw pain Pain in both upper arms [facility] Diagnosis Thyroid nodule Nontoxic uninodular goiter [facility]* Diagnosis Encounter for screening mammogram for malignant neoplasm of breast Other screening mammogram [facility]* Diagnosis Age-related osteoporosis without current pathological fracture Senile osteoporosis [facility]* Diagnosis Nonrheumatic mitral valve regurgitation- Primary Palpitations Hypercholesteremia Pure hypercholesterolemia Carotid atherosclerosis, bilateral [facility]* ZIGGY FARMER is a 61 year female referred to me today by Dr. Lei voice changes. This has been present for one year. THis has been gradually worsening. There was no preceding event. She had a thyroid biopsy which was negative for malignancy. She is followed at [facility]. Her voice is worse with singing.She has intermittent smooth voicing. She denies fatigability of her voice. 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 * She is throat clearing due to postnasal drip. * She has a known hearing loss. She has a history of ear surgery * She is not snoring. She has poor sleep which is chornic. * PMH: Thyroid nodules, * FHx: reviewed and non-contributory to current complaint. * I personally reviewed the patient AEMR notes, and consult notes * ROS performed. All other systems are reviewed and are negative for complaint and as noted above. [facility] [address] Work Phone: History of Present illness Narrative* Initiated voice retraining to improve diaphragmatic breath support and unload supraglottic compression associated with speech via flow phonation(all steps). Multimodality cueing, instruction in proper posture and repeated trials improved patient performance accuracy. With task and improved breath support mild tremor was noted as well as questionable mixed SD. Will monitor Encouraged home practiceseveral times a day for limited duration. Introduced CTT training as well targeting increased diaphragmatic breath support at the word (initial [h] words) and phrase levels. Model provided and accurate follow through confirmed with * 80% accuracy words and 60% accuracy phrases. * Initial [h] words and conversational phrases emailed along with flow phonation tasks for daily homepractice. * Voice: Voice quality based on the GRBAS scale: 0=absent; 1=mild; 2=moderate; 3=severe * Grade: 1-2 * Roughness: 1 * Breathiness: 0 * Asthenia: 0 * Strain: 1-2 (+ glottal martínez) * Voice: level 5 initial [facility] [address] [place] Work Phone: Instructions* Name Dates Details Patient Instructions Indication:Abnormal blood chemistry Start:11-Jul-2013 Instruction Type:Provider Instructions for Treatment Patient Instructions Indication:Thyroid nodule Start:04-Jul-2013 Instruction Type:Provider Instructions for Treatment Patient Instructions Indication:Pharyngitis, acute Start:22-May-2013 Instruction Type:Provider Instructions for Treatment Patient Instructions Indication:Hypercholesteremia Start:10-Jul-2012 Instruction Type:Provider Instructions for Treatment Patient Instructions Indication:Well woman exam with routine gynecological exam Start:05-Jun-2012 Instruction Type:Provider Instructions for Treatment [facility] Work Phone: reason for referral (narrative)* Diagnostic Procedure Only (Urgent) - Closed Specialty Diagnoses / Procedures Referred By Caprice suresh Referred To Contact XR IMAGING Diagnoses Injury of finger of left hand, initial encounter Procedures XR DIGIT GENERAL 3V FRONTAL/LAT/OBL LEFT RADEX FINGR MINIMUM 2 VIEWS Vale Claire APRN.CNP [address] [place] [address] Xr Imaging Referral ID Status Reason Start Date Expiration Date V isits Requested Visits Authorized [id number] Closed Auto-Generate d Referral 12/21/2021 01/20/2023 1 1 [facility] for referral (narrative)* Outpatient Procedure (Routine) - Pending Review Specialty Diagnoses / Procedures Referred By Caprice suresh Referred To Contact [facility] Diagnoses Dyslipidemia Lightheadedness Procedures US CAROTID ARTERIES [facility] DUPLEX SCAN EXTRACRANIAL ART COMPL BI STUDY Jj Cortes, DO [address] [place] [address] [facility] [address] [place] [id number] Referral ID Status Reason Start Date Expiration Date Visits Requested Visits Authorized [id number] Pending Review Auto-Generat ed Referral 07/23/2022 07/23/2023 1 1 * Outpatient Procedure (Routine) - Closed Specialty Diagnoses / Procedures Referred By Caprice t Referred To Contact [facility] [place] Diagnoses Dyslipidemia Palpitations Lightheadedness Procedures ECG COMPLETE ECG ROUTINE ECG W/LEAST 12 LDS W/I&R Jj Cortes, DO [address] [place] [address] [address] Referral ID Status Reason Start Date Expiration Date V isits Requested Visits Authorized [id number] Closed Auto-Generate d Referral 07/23/2022 07/23/2023 1 1 * Diagnostic Procedure Only (Routine) - Pending Review Specialty Diagnoses / Procedures Referred By Caprice t Referred To Contact BR IMAG[facility] Diagnoses Encounter for screening mammogram for malignant neoplasm of breast Procedures LAURIE SCREENING SCREENING MAMMOGRAPHY BI 2-VIEW BREAST INC CAD Jj Cortes, DO [address] [place] [address] [facility] [address] [place] [id number] Referral ID Status Reason Start Date Expiration Date Visits Requested Visits Authorized [id number] Pending Review Auto-Generat ed Referral 07/23/2022 08/22/2023 1 1 [facility] for referral (narrative)* Diagnostic Procedure Only (Routine) - Pending Review Specialty Diagnoses / Procedures Referred By Caprice t Referred To Contact US IMAGING Diagnoses Thyroid nodule Procedures US THYROID/PARATHYROID US SOFT TISSUE HEAD & NECK REAL TIME IMGE DOC Jj Cortes DO [address] [place] [address] [facility] Referral ID Status Reason Start Date Expiration Date Visits Requested Visits Authorized [id number] Pending Review Auto-Generat ed Referral 03/02/2023 03/31/2024 1 1 [facility] for referral (narrative)* Diagnostic Procedure Only (Routine) - Closed Specialty Diagnoses / Procedures Referred By Caprice t Referred To Contact US IMAGING Diagnoses Thyroid nodule Procedures US THYROID/PARATHYROID US SOFT TISSUE HEAD & NECK REAL TIME IMGE DOCM Jj Cortes, DO [address] [place] [address] [place] [address] Referral ID Status Reason Start Date Expiration Date V isits Requested Visits Authorized [id number] Closed Auto-Generate d Referral 03/02/2023 03/31/2024 1 1 [facility] for referral (narrative)* Diagnostic Procedure Only (Routine) - Closed Specialty Diagnoses / Procedures Referred By Caprice t Referred To Contact [facility] Diagnoses Encounter for screening mammogram for malignant neoplasm of breast Procedures LAURIE SCREENING SCREENING MAMMOGRAPHY BI 2-VIEW BREAST INC CAD Jj Cortes, DO [address] [place] [address] [facility] [address] [place] [address] Referral ID Status Reason Start Date Expiration Date V isits Requested Visits Authorized [id number] Closed Auto-Generate d Referral 07/23/2022 08/22/2023 1 1 [facility] for referral (narrative)* Outpatient Procedure (Routine) - Authorized Specialty Diagnoses / Procedures Referred By Caprice t Referred To Contact [facility] Diagnoses Nonrheumatic mitral valve regurgitation Procedures ECHO ECHO TTHRC R-T 2D W/WOM-MODE COMPL SPEC&COLR D Ismael Price MD [address] [place] [id number] [facility] [address] [place] [address] Referral ID Status Reason Start Date Expiration Date Visits Requested Visits Authorized [id number] Authorized Auto-Generat ed Referral 10/24/2023 07/03/2024 1 1 [facility] for visit Narrative* Outpatient Procedure (Routine) - Closed Specialty Diagnoses / Procedures Referred By Caprice suresh Referred To Contact Cardiology / CARD LAB [facility] Diagnoses EXERCISE STRESS Dyslipidemia [E78.5]; Palpitations [R00.2]; Lightheadedness [R42] Procedures CV STRS TST XERS&/OR RX CONT ECG TRCG ONLY STRESS TEST Jj Cortes, DO [address] [place] [address] [facility] [place] [address] [place] [address] Referral ID Status Reason Start Date Expiration Date Visits Re quested Visits Authorized [id number] Closed 08/30/2022 10/29/2022 1 1 [facility] for visit Narrative* Diagnostic Procedure Only (Routine) - Closed Specialty Diagnoses / Procedures Referred By Caprice suresh Referred To Contact [facility] Diagnoses Encounter for screening mammogram for malignant neoplasm of breast Procedures LAURIE SCREENING SCREENING MAMMOGRAPHY BI 2-VIEW BREAST INC CAD Jj Cortes, DO [address] [place] [address] [facility] [address] [place] [address] Referral ID Status Reason Start Date Expiration Date V isits Requested Visits Authorized [id number] Closed Auto-Generate d Referral 07/23/2022 08/22/2023 1 1 [facility] Advance Directives No Advanced Directives Records FoundDocuments on File Type Date Recorded 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 Advance Directive(s) 05/01/2021 9:37 AM Advance Directive(s) 04/16/2021 9:42 AM Documents on File Type Date Recorded 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 Advance Directive(s) 05/01/2021 9:37 AM Advance Directive(s) 04/16/2021 9:42 AM Chief Complaint Voice Family History No Family History Records FoundUnknown Family Member Name Dates Details Father Comments:CAD/CAB, Vlave repl acement - anxiety Status:Active Mother Comments:In good health Status:Active Summary Purpose Reason for Referral Specialty Diagnoses / Procedures Referred By Caprice suresh Referred To Contact CT IMAGING Diagnoses Chest pain, unspecified type Palpitations Shortness of breath Numbness and tingling of both legs Stress Jaw pain Pain in both upper arms Procedures CT CHEST WO IVCON DIAGNOSTIC COMPUTED TOMOGRAPHY THORAX W/O CNTRST Vale Claire, SPICE MIXER.GLASS CARRIER [address] [place] [address] Ct Imaging Referral ID Status Reason Start Date Expiration Date Visits Requested Visits Authorized [id number] Pending Review Auto-Generat ed Referral 10/08/2022 11/07/2023 1 1 Specialty Diagnoses / Procedures Referred By Caprice t [facility] Diagnoses Chest pain, unspecified type Palpitations Shortness of breath Procedures ECHO ECHO TTHRC R-T 2D W/WOM-MODE COMPL SPEC&COLR D Vale Claire, SPICE MIXER.GLASS CARRIER [address] [place] [address] [facility] [address] [place] [address] Referral ID Status Reason Start Date Expiration Date Visits Requested Visits Authorized [id number] Pending Review Auto-Generat ed Referral 10/08/2022 10/08/2023 1 1 Specialty Diagnoses / Procedures Referred By Caprice t Referred To Contact Cardiology Diagnoses Shortness of breath Palpitations Chest pain, unspecified type Acquired tricuspid valve insufficiency Mitral valve insufficiency, acquired Procedures CONSULT TO CARDIOLOGY OFFICE/OUTPATIENT [facility] 60-74 MINUTES Vale Claire, SPICE MIXER.GLASS CARRIER [address] [place] [address] Referral ID Status Reason Start Date Expiration Date Visits Requested Visits Authorized [id number] Authorized PCP Requested Referral 10/27/2022 10/27/2023 1 1 Specialty Diagnoses / Procedures Referred By Caprice t Referred To Contact CT IMAGING Diagnoses Chest pain, unspecified type Palpitations Shortness of breath Numbness and tingling of both legs Stress Jaw pain Pain in both upper arms Procedures CT CHEST WO IVCON DIAGNOSTIC COMPUTED TOMOGRAPHY THORAX W/O CNTRST Vale Claire, SPICE MIXER.GLASS CARRIER [address] [place] [address] [place] [id number] Referral ID Status Reason Start Date Expiration Date V isits Requested Visits Authorized [id number] Closed Auto-Generate d Referral 10/08/2022 11/07/2023 1 1 Additional Source Comments Source Comments (unrecognize d section and content) In the event this informatio n is protected by the Federal Confidentiality of Alcohol and Drug Abuse Patient Records regulations: The Federal rules restrict any use of the information to criminally investigate or prosecute any alcohol or drug abuse patient.[facility] HealthIn the event this information is protected by the Federal Confidentiality of Alcohol and Drug Abuse Patient Records regulations: The Federal rules restrict any use of the information to criminally investigate or prosecute any alcohol or drug abuse patient.[facility] HealthIn the event this information is protected by the Federal Confidentiality of Alcohol and Drug Abuse Patient Records regulations: The Federal rules restrict any use of the information to criminally investigate or prosecute any alcohol or drug abuse patient.[facility] HealthIn the event this information is protected by the Federal Confidentiality of Alcohol and Drug Abuse Patient Records regulations: The Federal rules restrict any use of the information to criminally investigate or prosecute any alcohol or drug abuse patient.[facility] HealthIn the event this information is protected by the Federal Confidentiality of Alcohol and Drug Abuse Patient Records regulations: The Federal rules restrict any use of the information to criminally investigate or prosecute any alcohol or drug abuse patient.[facility] HealthIn the event this information is protected by the Federal Confidentiality of Alcohol and Drug Abuse Patient Records regulations: The Federal rules restrict any use of the information to criminally investigate or prosecute any alcohol or drug abuse patient.[facility] HealthIn the event this information is protected by the Federal Confidentiality of Alcohol and Drug Abuse Patient Records regulations: The Federal rules restrict any use of the information to criminally investigate or prosecute any alcohol or drug abuse patient.[facility] HealthIn the event this information is protected by the Federal Confidentiality of Alcohol and Drug Abuse Patient Records regulations: The Federal rules restrict any use of the information to criminally investigate or prosecute any alcohol or drug abuse patient.[facility] HealthIn the event this information is protected by the Federal Confidentiality of Alcohol and Drug Abuse Patient Records regulations: The Federal rules restrict any use of the information to criminally investigate or prosecute any alcohol or drug abuse patient.[facility] HealthIn the event this information is protected by the Federal Confidentiality of Alcohol and Drug Abuse Patient Records regulations: The Federal rules restrict any use of the information to criminally investigate or prosecute any alcohol or drug abuse patient.[facility] HealthIn the event this information is protected by the Federal Confidentiality of Alcohol and Drug Abuse Patient Records regulations: The Federal rules restrict any use of the information to criminally investigate or prosecute any alcohol or drug abuse patient.[facility] HealthIn the event this information is protected by the Federal Confidentiality of Alcohol and Drug Abuse Patient Records regulations: The Federal rules restrict any use of the information to criminally investigate or prosecute any alcohol or drug abuse patient.[facility] HealthIn the event this information is protected by the Federal Confidentiality of Alcohol and Drug Abuse Patient Records regulations: The Federal rules restrict any use of the information to criminally investigate or prosecute any alcohol or drug abuse patient.[facility] HealthIn the event this information is protected by the Federal Confidentiality of Alcohol and Drug Abuse Patient Records regulations: The Federal rules restrict any use of the information to criminally investigate or prosecute any alcohol or drug abuse patient.[facility] HealthIn the event this information is protected by the Federal Confidentiality of Alcohol and Drug Abuse Patient Records regulations: The Federal rules restrict any use of the information to criminally investigate or prosecute any alcohol or drug abuse patient.[facility] HealthIn the event this information is protected by the Federal Confidentiality of Alcohol and Drug Abuse Patient Records regulations: The Federal rules restrict any use of the information to criminally investigate or prosecute any alcohol or drug abuse patient.[facility] HealthIn the event this information is protected by the Federal Confidentiality of Alcohol and Drug Abuse Patient Records regulations: The Federal rules restrict any use of the information to criminally investigate or prosecute any alcohol or drug abuse patient.[facility] HealthIn the event this information is protected by the Federal Confidentiality of Alcohol and Drug Abuse Patient Records regulations: The Federal rules restrict any use of the information to criminally investigate or prosecute any alcohol or drug abuse patient.[facility] HealthIn the event this information is protected by the Federal Confidentiality of Alcohol and Drug Abuse Patient Records regulations: The Federal rules restrict any use of the information to criminally investigate or prosecute any alcohol or drug abuse patient.[facility] HealthIn the event this information is protected by the Federal Confidentiality of Alcohol and Drug Abuse Patient Records regulations: The Federal rules restrict any use of the information to criminally investigate or prosecute any alcohol or drug abuse patient.[facility] HealthIn the event this information is protected by the Federal Confidentiality of Alcohol and Drug Abuse Patient Records regulations: The Federal rules restrict any use of the information to criminally investigate or prosecute any alcohol or drug abuse patient.[facility] HealthIn the event this information is protected by the Federal Confidentiality of Alcohol and Drug Abuse Patient Records regulations: The Federal rules restrict any use of the information to criminally investigate or prosecute any alcohol or drug abuse patient.[facility] HealthIn the event this information is protected by the Federal Confidentiality of Alcohol and Drug Abuse Patient Records regulations: The Federal rules restrict any use of the information to criminally investigate or prosecute any alcohol or drug abuse patient.[facility] HealthIn the event this information is protected by the Federal Confidentiality of Alcohol and Drug Abuse Patient Records regulations: The Federal rules restrict any use of the information to criminally investigate or prosecute any alcohol or drug abuse patient.[facility] HealthIn the event this information is protected by the Federal Confidentiality of Alcohol and Drug Abuse Patient Records regulations: The Federal rules restrict any use of the information to criminally investigate or prosecute any alcohol or drug abuse patient.[facility] HealthIn the event this information is protected by the Federal Confidentiality of Alcohol and Drug Abuse Patient Records regulations: The Federal rules restrict any use of the information to criminally investigate or prosecute any alcohol or drug abuse patient.[facility] HealthIn the event this information is protected by the Federal Confidentiality of Alcohol and Drug Abuse Patient Records regulations: The Federal rules restrict any use of the information to criminally investigate or prosecute any alcohol or drug abuse patient.[facility] Reason for Visit (unrecogniz ed section and content) Reason Onset Date Comments Refill Request 01/11/2022 Refill Request 01/15/2022 Reason Onset Date Comments Refill Request 01/15/2022 Reason Comments Yearly Exam Reason Comments Results Reason Comments Reminder Call Reason Comments Chest Pain Reason Comments Chest Pain SOB on and off, Jaw pain, arm pain x 2 months Reason Onset Date Comments Refill Request 10/12/2022 Reason Comments Results Reason Comments Left Leg Swelling Reason Comments Consult Specialty Diagnoses / Procedures Referred By Contac t Referred To Contact Cardiology Diagnoses Shortness of breath Palpitations Chest pain, unspecified type Acquired tricuspid valve insufficiency Mitral valve insufficiency, acquired Procedures CONSULT TO CARDIOLOGY OFFICE/OUTPATIENT [facility] MDM 60-74 MINUTES Vale Claire, SPICE MIXER.GLASS CARRIER [address] [place] [address] Referral ID Status Reason Start Date Expiration Date V isits Requested Visits Authorized [id number] Closed PCP Requested Referral 10/27/2022 10/27/2023 1 1 Reason Comments Follow Up Reason Onset Date Comments Refill Request 03/14/[address] Specialty Diagnoses / Procedures Referred By Contac t Referred To Contact CT IMAGING Diagnoses Chest pain, unspecified type Palpitations Shortness of breath Numbness and tingling of both legs Stress Jaw pain Pain in both upper arms Procedures CT CHEST WO IVCON DIAGNOSTIC COMPUTED TOMOGRAPHY THORAX W/O CNTRST Vale Claire, SPICE MIXER.GLASS CARRIER [address] [place] [address] [place] [address] Referral ID Status Reason Start Date Expiration Date V isits Requested Visits Authorized [id number] Closed Auto-Generate d Referral 10/08/2022 11/07/2023 1 1 Reason Comments Radiology US Specialty Diagnoses / Procedures Referred By Caprice suresh Referred To Contact US IMAGING Diagnoses Thyroid nodule Procedures US THYROID/PARATHYROID US SOFT TISSUE HEAD & NECK REAL TIME IMGE Jj Carney, DO [address] [place] [address] [place] [address] Referral ID Status Reason Start Date Expiration Date V isits Requested Visits Authorized [id number] Closed Auto-Generate d Referral 03/02/2023 03/31/2024 1 1 Reason Comments Established Patient Reason Comments Disbursement Clerk - Other Attempting prio r authorization for Nexletol Care Teams (unrecognized sec tion and content) 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 Specialty Start Date End Date jJ Cortes, DO [address] [place] [address] PCP - General Family Practice 09/14/13 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 Specialty Start Date End Date Jj Cortes, DO [address] [facility] [address] PCP - General Family Practice 09/14/13 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 Specialty Start Date End Date Jj Cortes, DO [address] [facility] [address] PCP - General Family Medicine 09/14/13 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 Specialty Start Date End Date Jj Cortes, DO [address] [place] [address] PCP - General Family Medicine 09/14/13 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 Specialty Start Date End Date Jj Cortes, DO [address] [place] [address] PCP - General Family Medicine 09/14/13 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 Specialty Start Date End Date Jj Cortes DO [address] [place] [address] PCP - General Family Medicine 09/14/13 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 Specialty Start Date End Date Jj Cortes, DO [address] [place] [address] PCP - General Family Medicine 09/14/13 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 Specialty Start Date End Date Jj Cortes, DO [address] [place] [address] PCP - General Family Medicine 09/14/13 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 Specialty Start Date End Date Jj Cortes, DO [address] [place] [address] PCP - General Family Medicine 09/14/13 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 Specialty Start Date End Date Jj Cortes, DO [address] [place] [address] PCP - General Family Medicine 09/14/13 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 Specialty Start Date End Date Jj Cortes, DO [address] [place] [address] PCP - General Family Medicine 09/14/13 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 Specialty Start Date End Date Jj Cortes, DO [address] [place] [address] PCP - General Family Medicine 09/14/13 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 Specialty Start Date End Date Jj Cortes, DO [address] [place] [address] PCP - General Family Medicine 09/14/13 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 Specialty Start Date End Date Jj Cortes, DO [address] [place] [address] PCP - General Family Medicine 09/14/13 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 Specialty Start Date End Date Jj Cortes, DO [address] [place] [address] PCP - General Family Medicine 09/14/13 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 Specialty Start Date End Date Jj Cortes DO [address] [facility] [place] [address] PCP - General Family Medicine 09/14/13 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 Specialty Start Date End Date Jj Cortes DO [address] [facility] [place] [place] [address] PCP - General Family Medicine 09/14/13 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 Specialty Start Date End Date Jj Cortes DO [address] [place] [address] PCP - General Family Medicine 09/14/13 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 Specialty Start Date End Date Jj Cortes DO [address] [place] [address] PCP - General Family Medicine 09/14/13 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 Specialty Start Date End Date Jj Cortes DO [address] [place] [address] PCP - General Family Medicine 09/14/13 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 Specialty Start Date End Date Jj Cortes DO [address] [place] [address] PCP - General Family Medicine 09/14/13 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 Specialty Start Date End Date Jj Cortes DO [address] [place] [address] PCP - General Family Medicine 09/14/13 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 Specialty Start Date End Date Jj Cortes DO [address] [place] [address] PCP - General Family Medicine 09/14/13 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 Specialty Start Date End Date Jj Cortes DO [address] [place] [address] PCP - General Family Medicine 09/14/13 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 Specialty Start Date End Date Jj Cortes DO [address] [place] [address] PCP - General Family Medicine 09/14/13 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 Specialty Start Date End Date Jj Cortes DO [address] [place] [address] PCP - General Family Medicine 09/14/13 INFORMATION SOURCE (unrecogn ized section and content) DATE CREATED AUTHOR AUTHOR'S ORGANIZ ATION 08/31/2022 [facility] DATE CREATED AUTHOR AUTHOR'S ORGANIZ ATION 08/31/2023 [facility] DATE CREATED AUTHOR AUTHOR'S ORGANIZ ATION 10/01/2023 [facility] FOR RECORDS PERTAINING TO PATIENTS WHO ARE OR HAVE BEEN ENROLLED IN A CHEMICAL DEPENDENCY/SUBSTANCEABUSE PROGRAM, SOME INFORMATION MAY BE OMITTED. This clinical summary was aggregated from multiple sources. Caution should be exercised in using it in the provision of clinical care. This summary normalizes information from multiple sources, and as a consequence, information in this document may materially change the coding, format and clinical context of patient data. In addition, data may be omitted in some cases. CLINICAL DECISIONS SHOULD BE BASED ON THE PRIMARY CLINICAL RECORDS. [employer] provides no warranty or guarantee of the accuracy or completeness of information in this document.
== END | disposition home or self-care (01) ==
LOC: MRI 15:30
PROVIDERS: PCP Student in an Organized Health Care Education/Training Program; Referring Provider Otolaryngology; Visit Provider Otolaryngology
DX: H93.12 Tinnitus, left ear (principal); H90.3 Sensorineural hearing loss, bilateral
CPT/HCPCS: 70553; A9575

== ENCOUNTER 2024-10-29 07:40 | Emergency (ER) | payer BC, SELFPAY ==
[2024-10-29 07:41] VITALS: BP 135/87; PULSE 62; RESP 15; TEMP 36.8; O2SAT 100
--- NOTE | 2024-10-29 07:58 | EX.ED.VIS.EY ---
HPI History of Present Illness Chief Complaint: Eye Problem [facility] Medical History Essential hypertension History of cholelithiasis Hypothyroidism MVP (mitral valve prolapse) Home Medications ?Medication ?Instructions ?Recorded ?Last Taken ?Type levothyroxine 25 mcg tablet 25 mcg PO DAILY 10/14/15 Unknown History Allergy/AdvReac Type Severity Reaction Status Date / Time No Known Allergies Allergy Verified 10/29/24 07:43 Social History Smoking Status: Never smoker EXAM Physical Exam Const Vital Signs: 10/29/24 07:41 Temperature 98.2 F Temperature Source Temporal Pulse Rate 62 Respiratory Rate 15 Blood Pressure 135/87 H Blood Pressure Mean 103 Pulse Ox 100 Oxygen Delivery Method Room Air MDM MDM MDM Narrative Medical decision making narrative: HISTORY OF PRESENT ILLNESS: 64-year-old female presents with concern for pain in the right eye and some blurry vision which has resolved. She states this began this morning as she woke up. She further states no report of trauma. Notes symptoms lasted for several minutes and then resolved. Does not wear contacts. Denies any headache, slurred speech, lack of coordination REVIEW OF SYSTEMS: Pertinent positives: Eye pain, blurry vision Pertinent negatives: Headache, slurred speech PHYSICAL EXAM: Nursing triage notes reviewed, Vital signs reviewed Constitutional: please see mdm HENT: MMM Eyes: Pupils equal round and reactive to light, Extraocular muscles intact, visual acuity grossly intact, 20/25 OD, 20/20 OS, visual cohen intact, conjunctiva noninjected, there is no redness. Neck: No stridor, no JVD, full neck ROM Lungs: Clear to auscultation, No wheezing or rales. No increased work of breathing, no conversational dyspnea, no accessory muscle use, no nasal flaring. No respiratory distress noted Heart: Regular rate and rhythm, No murmurs, No rubs and No gallops, 2+ distal pulses (radial, femoral, posterior tibial) in all extremities Abdomen: Soft, there is no tenderness, rigidity, rebound or guarding, no obvious peritoneal signs, no palpable pulsatile abdominal masses, no auscultated abdominal bruit : No CVAT Extremities: No edema Neuro: Alert and oriented x3, neuro exam at baseline, cranial nerves II through XII are intact. No pain with extraocular muscle movement. There is negative test of skew. 5 of 5 strength in upper and lower extremities in flexion extension. Intact sensation to light touch in upper and lower extremity dermatomes. No truncal or extremity ataxia. No dysdiadochokinesia. Normal gait. 2+ reflexes in upper and lower extremities. No meningeal signs. Negative Babinski. NIH of 0. Skin: No rash or lesions noted MEDICAL DECISION MAKING: Chief Complaint: Eye pain External records reviewed: Prior imaging reviewed: MRI of the brain from September 2023 showed no acute intracranial abnormality Factors affecting care: n history of hypertension Social determinants of health: none History obtained from others: none Consults: none MDM Narrative: The patient was initially hemodynamically stable, afebrile and nontoxic-appearing. Exam without focal ocular abnormalities I considered the following differential diagnosis: Glaucoma, vitreous hemorrhage, retinal detachment, CVA The patient's clinical exam is consistent with CVA. I did obtain a sijqa-yp-jiyx ultrasound which showed no evidence of retinal detachment vitreous hemorrhage. The patient's intraocular pressure was within normal limits based on ultrasound and optic nerve diameter of less than 5 mm. No sign of an eye threatening etiology at this time. No indication for transfer for emergent ophthalmology evaluation. Encouraged close ophthalmology follow-up. The patient and/or family, caregivers express understanding. The patient and/or family, caregivers agrees with the plan. Shared decision making: I will have a discussion with the patient and or visitors regarding risk/benefits of further testing or admission. They will be made aware of of the risk/benefits inherent in this decision they will be given the opportunity to voice understanding. Total critical care time today provided was at least 0 minutes. This excludes separately billable procedures. Critical care time (if documented) is secondary to the patient having high probability of clinically significant/life threatening deterioration in the patient's condition which required my urgent intervention. Impression: 1. Transient visual disturbance Dispo: Discharge home This note was generated with [employer] dictation software. It may contain incorrect words, spelling, and punctuation that were not noted in review of the chart prior to signing. Discharge Plan Triage Chief Complaint: Eye Problem ED Provider: Mo De La Cruz Dx/Rx/DC Orders Instructions: ED Blurred Vision Prescriptions: No Action levothyroxine 25 MCG tablet 25 mcg PO DAILY Primary Care Provider: Jj Baez Referrals: Susana Jama MD [Med Staff - Active Staff] - Activity Restrictions/Additional Instructions: Thank you for trusting us with your care today! Please return to the emergency department if your symptoms change or worsen. Specifically develop loss of vision, for like there is a curtain pulled out of your vision, develop severe headache, slurred speech, difficulty speaking, loss of movement sensation or coordination. Please follow with Ophthamolgy for further outpatient evaluation and management. Print Language: Turkish Disposition Disposition: Home, Self Care
[2024-10-29 08:35] VITALS: BMI 21.2
--- NOTE | 2024-10-29 08:37 | ED.RN ---
Addendum entered by Clarissa Jama 10/29/24 08:42: nih negative. Original Note: denies weakness, slured speech, difficulty processing conversation. no other sx. facial movments symetrical.
[2024-10-29 09:39] VITALS: BP 132/78; PULSE 64; RESP 16; O2SAT 99
== END 2024-10-29 09:39 | disposition home or self-care (01) ==
PROVIDERS: Emergency Provider Emergency Medicine; PCP Student in an Organized Health Care Education/Training Program; Visit Provider Emergency Medicine
DX: H57.11 Ocular pain, right eye (principal); H53.9 Unspecified visual disturbance; I10 Essential (primary) hypertension; E03.9 Hypothyroidism, unspecified; Z79.890 Hormone replacement therapy
CPT/HCPCS: 99283

== ENCOUNTER 2025-06-13 14:20 | Emergency (ER) | payer BC, SELFPAY ==
[2025-06-13 14:24] VITALS: BP 129/98; PULSE 78; RESP 16; TEMP 36.8; O2SAT 100
[2025-06-13 15:27] VITALS: BP 128/82
[2025-06-13 15:34] VITALS: BP 128/82; PULSE 60; PULSE 62; RESP 11; RESP 13; O2SAT 100
--- NOTE | 2025-06-13 15:35 | EKG12_ITS ---
Test Reason : SOB
--- NOTE | 2025-06-13 15:37 | ED.VIS.DYS ---
HPI History of Present Illness Chief Complaint: Shortness of Breath Informant: patient Onset/Context/Timing Onset: Weeks Context: gradual Timing: Intermittent Quality: Negative for Dyspnea on exertion Current Severity: Mild Maximum Severity: Mild Worsened by: Nothing Relieved by: Nothing Associated Symptoms Negative for cough Chest Pain: Positive for None Narrative Narrative: 14-year-old female history of mitral valve prolapse. In March travel to [place] for 2-week trip. Over the last month she has had intermittent shortness of breath. Says she feels a catch on her left rib cage and takes a deep breath. Currently no chest pain. No hemoptysis. She has never had a DVT or PE. No leg pain or swelling. She has no cardiac or pulm history. She does have a history of mitral valve prolapse. Currently she is symptom-free. PE Risk Factors: Positive for Recent travel; Negative for Cancer, OCP + Smoking + > 35, Prior DVT or PE, Recent immobilization or Recent surgery Prior similar symptoms: Yes Recent Illness/Hospitalization: No PFSH PFSH Medical History MVP (mitral valve prolapse) History of cholelithiasis Hypothyroidism Essential hypertension Home Medications ?Medication ?Instructions ?Recorded ?Last Taken ?Type levothyroxine 25 mcg tablet 25 mcg PO DAILY 10/14/15 Unknown History Allergy/AdvReac Type Severity Reaction Status Date / Time No Known Allergies Allergy Verified 06/13/25 14:28 Social History Smoking Status: Never smoker ROS ROS ED ROS Narrative Denies recent illness other than a sinusitis weeks ago that resolved. Constitutional Constitutional ED: Denies chills or fever(s) Eyes Eyes: Denies blurry vision ENT ENT ED: Denies ear pain Cardiovascular Cardiovascular: Denies chest pain Respiratory/Chest Respiratory/Chest: Reports dyspnea; Denies cough Gastrointestinal Gastrointestinal: Denies abdominal pain Genitourinary Genitourinary ED: Denies dysuria or hematuria Musculoskeletal Musculoskeletal: Denies arthralgias or back pain Integumentary Denies abscess Neurologic Neurologic: Denies headache(s) Psychiatric Psychiatric: Denies anxiety or depression Endocrine Endocrinology: Denies cold intolerance Hematologic/Lymphatic Hematologic/Lymphatic: Denies easy bleeding or easy bruising Allergic/Immunologic Allergic/Immunologic ED: Denies mouth swelling or tongue swelling EXAM Physical Exam Narrative Exam Narrative: 65-year-old female sitting upright in bed vital signs stable afebrile. Pulse ox 100% on room air no signs hypoxia. Patient sitting upright in bed appears comfortable. No distress. H EENT exam pupils round react light. Moist mucous membrane. Neck nontender no JVD. No lymphadenopathy. Lungs clear to auscultation bilaterally. Heart regular rate and rhythm rate about 70 no murmur. Chest wall ribs nontender. Abdomen soft nontender. Moving all 4 extremities. Calves are nontender without edema or cords. Equal symmetrical radial pulses. 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 Normal dorsi plantarflexion. Back nontender. Neurologically she is awake alert. Answering questions following commands. Very benign exam. Const Vital Signs: 06/13/25 14:24 06/13/25 15:27 06/13/25 15:34 Temperature 98.3 F Temperature Source Temporal Pulse Rate 78 62 Respiratory Rate 16 11 L Respiratory Effort Respiratory Depth Respiratory Pattern Blood Pressure 129/98 H 128/82 H 128/82 H Blood Pressure Mean 108 92 97 Pulse Ox 100 100 Oxygen Delivery Method Room Air Room Air 06/13/25 15:34 06/13/25 15:35 06/13/25 15:36 Temperature Temperature Source Pulse Rate 60 Respiratory Rate 13 Respiratory Effort Normal Non-Labored Normal Non-Labored Respiratory Depth Normal Respiratory Pattern Normal Normal Blood Pressure Blood Pressure Mean Pulse Ox 100 Oxygen Delivery Method Room Air 06/13/25 15:38 06/13/25 15:45 06/13/25 16:00 Temperature Temperature Source Pulse Rate 59 L Respiratory Rate 12 Respiratory Effort Respiratory Depth Respiratory Pattern Blood Pressure 137/112 H 109/73 Blood Pressure Mean 122 83 Pulse Ox 100 Oxygen Delivery Method Room Air Room Air MDM MDM MDM Narrative Medical decision making narrative: 65-year-old female intermittent shortness of breath. No history of DVT or PE. No cardiac history other mitral valve prolapse. Benign exam with normal vital signs. She did have recent travel to [place] cardiac workup will be done. And D-dimer. Repeat exam patient is doing well at 4:30 PM. Pulse ox remains 100% on room air. She is in no distress. She and I went over all of her test results. Having checks out normal. She is comfortably discharged home with outpatient follow-up. History & Record Review Discussion w/independent historian: Patient Additional record(s) reviewed:: Prior outpatient record and Prior labs Lab Data Attestation: I reviewed the patient's lab results. Lab results narrative: CBC unremarkable. White count 7. H&H 13 and 40. Platelets 182. D-dimer 0.32 and normal. Troponin less than 6. Electrolytes unremarkable gap 10. Normal BUN and creatinine. Glucose 97. Chest x-ray unremarkable.. Labs: Laboratory Results - last 24 hr 06/13/25 15:30 WBC 7.4 RBC 4.72 Hgb 13.6 Hct 40.1 MCV 85.0 MCH 28.8 MCHC 33.9 RDW Std Deviation 42.0 RDW Coeff of Joana 13.4 Plt Count 182 MPV 9.2 Immature Gran % (Auto) 0.300 Neut % (Auto) 58.5 Lymph % (Auto) 33.0 Mccormick % (Auto) 6.2 Eos % (Auto) 1.6 Baso % (Auto) 0.4 Absolute Neuts (auto) 4.3 Absolute Lymphs (auto) 2.43 Nucleated RBC % 0 D-Dimer Quant (PE/DVT) 0.32 Sodium 137 Potassium 3.6 Chloride 100 Carbon Dioxide 26.6 Anion Gap 10 BUN 18 Creatinine 0.83 Est GFR (MDRD) Non-Af 77 BUN/Creatinine Ratio 21.4 H Glucose 97 Calcium 9.6 Troponin T High Sens < 6 Radiography Chest X-Ray - ED: 2 View, Read by ED Physician, Read by Radiologist, Normal, Heart, Lungs, Mediastinum, Bony Structures, No Acute Disease and Chronic Changes Diagnostic Testing: Clinical Impression(s) from Imaging Studies Chest X-Ray 06/13/25 15:40 IMPRESSION: Lungs are moderately hyperinflated. No focal infiltrate is seen. No evidence of pulmonary edema. No pleural effusion or pneumothorax is seen. The cardiomediastinal silhouette is within the normal range. [id number] thoracic spine degenerative changes are noted. Reading Location: [place] [id number] Chest x-ray, 2 views, AP and lateral, interpreted by myself and radiologist shows no acute abnormality. Normal cardiac silhouette. Normal lung cohen. Chronic changes. Discharge Plan Triage Chief Complaint: Shortness of Breath ED Provider: Morgan Hou Dx/Rx/DC Orders Clinical Impression: Dyspnea, History of mitral valve prolapse Instructions: ED Dyspnea Prescriptions: No Action levothyroxine 25 MCG tablet 25 mcg PO DAILY Primary Care Provider: Jj Baez Referrals: Jj Baez DO [Primary Care Provider, Medical] - As Needed Activity Restrictions/Additional Instructions: All your tests, EKG, x-ray and physical exam are good today. No specific cause for your symptoms. Follow-up with your primary care provider if this persist. Print Language: Persian Disposition Disposition: Home, Self Care
--- NOTE | 2025-06-13 15:40 | RAD_ITS ---
PROCEDURE: RAD/Chest PA and Lateral
[2025-06-13 15:45] VITALS: BP 137/112
[2025-06-13 16:00] VITALS: BP 109/73; PULSE 59; RESP 12; O2SAT 100
[2025-06-13 16:05] LABS: D-Dimer Quantitative (DVT/PE) 0.32 FEU/ug/m (0.27-0.49)
[2025-06-13 16:10] LABS: Anion Gap 10 (5-15); BUN 18 mg/dL (4-19); BUN/Creat Ratio 21.4 RATIO (10-20); Calcium,Total 9.6 mg/dL (7.6-11.0); Carbon Dioxide 26.6 mmol/L (21.0-32.0); Chloride 100 mmol/L (98-108); Glucose 97 mg/dL (70-99); Potassium 3.6 mmol/L (3.3-5.1); Troponin T High Sensitivity < 6 ng/L (<=14)
[2025-06-13 16:15] LABS: Hematocrit 40.1 % (37-47); Hemoglobin 13.6 g/dL (12.0-15.0); Immature Granulocytes Count 0.020 X10^3/uL (0.0-0.0); Mean Corp Hgb Conc 33.9 g/dL (32-36); Mean Corpuscular Volume 85.0 fL (81-99); Mean Platelet Vol. 9.2 fl (6.2-12.0); NRBC Flagged by Analyzer 0 % (0-5); Platelet Count 182 K/mm3 (150-450); RBC Distribution Width CV 13.4 % (11.6-14.6); RBC Distribution Width SD 42.0 fl (35.1-43.9); Red Blood Count 4.72 M/mm3 (4.2-5.4); White Blood Count 7.4 K/mm3 (4.4-11.0)
[2025-06-13 16:34] VITALS: BP 106/73; PULSE 60; RESP 11; TEMP 36.7; O2SAT 100
== END 2025-06-13 16:38 | disposition home or self-care (01) ==
PROVIDERS: Emergency Provider Emergency Medicine; PCP Student in an Organized Health Care Education/Training Program; Visit Provider Emergency Medicine
DX: R06.00 Dyspnea, unspecified (principal); I10 Essential (primary) hypertension; I34.1 Nonrheumatic mitral (valve) prolapse; E03.9 Hypothyroidism, unspecified; Z79.890 Hormone replacement therapy
CPT/HCPCS: 71046; 80048; 84484; 85025; 85379; 93005; 99285; A4216